=== PATIENT | male | born 1950 | race Caucasian/White ===

== ENCOUNTER 2022-09-26 13:46 | Outpatient (REF) | payer MEDICARE, OTHER, SELFPAY ==
[2022-09-26 14:03] LABS: MANUAL DIFF FLAG NO
[2022-09-26 14:08] LABS: Basophils Absolute Auto 0.1 X10*3/uL (0.0-0.2); Basophils Percent Auto 0.7 % (0-2); Eosinophils Absolute Auto 0.2 X10*3/uL (0.0-0.4); Hematocrit 50.6 % (42.0-52.0); Hemoglobin 17.1 g/dl (14.0-18.0); Imm Gran Abs Auto 0.07 X10*3/uL (0.00-0.03); Imm Gran Pct Auto 0.9 % (0.0-0.4); Lymphocytes Absolute Auto 1.5 X10*3/uL (1.2-4.9); Lymphocytes Percent Auto 18.2 % (20-40); Mean Corpuscular HGB Conc 33.8 g/dl (31.0-36.0); Mean Corpuscular Hemoglobin 29.9 pg (27.0-33.0); Mean Corpuscular Volume 88.5 fL (80.0-98.0); Mean Platelet Volume 8.9 fL (9.4-12.4); Monocytes Absolute Auto 0.6 X10*3/uL (0.1-1.2); Monocytes Percent Auto 7.3 % (2-11); Neutrophils Absolute Auto 5.7 x10*3/uL (2.0-8.3); Neutrophils Percent Auto 70.9 % (45-73); Platelet Count 796 X10*3/uL (160-400); Red Blood Count 5.72 X10*6/uL (4.60-5.80); Red Cell Distribution Width 13.2 % (11.0-16.0); White Blood Count 8.1 X10*3/uL (4.8-10.8)
== END 2022-09-26 13:47 | disposition home or self-care (01) ==
LOC: HO.BBR 13:46
PROVIDERS: PCP Family Medicine; Visit Provider Internal Medicine Hematology
DX: D45 Polycythemia vera (principal)
CPT/HCPCS: 36415; 85014; 85018; 85025; 99195

== ENCOUNTER 2022-10-27 12:46 | Outpatient (REF) | payer MEDICARE, OTHER, SELFPAY | END 2022-10-27 12:47 | disposition home or self-care (01) | LOC: HO.BBR 12:46 | PROVIDERS: Visit Provider Internal Medicine Hematology | DX: D45 Polycythemia vera (principal) | CPT/HCPCS: 85014; 85018; 99195 ==

== ENCOUNTER 2022-11-30 12:45 | Outpatient (REF) | payer MEDICARE, OTHER, SELFPAY | END 2022-11-30 12:46 | disposition home or self-care (01) | LOC: HO.BBR 12:45 | PROVIDERS: PCP Family Medicine; Visit Provider Internal Medicine Hematology | DX: D45 Polycythemia vera (principal) | CPT/HCPCS: 85014; 85018; 99195 ==

== ENCOUNTER 2022-12-29 10:54 | Outpatient (REF) | payer MEDICARE, OTHER, SELFPAY | END 2022-12-29 10:55 | disposition home or self-care (01) | LOC: HO.BBR 10:54 | PROVIDERS: PCP Family Medicine; Visit Provider Internal Medicine Hematology | DX: D45 Polycythemia vera (principal) | CPT/HCPCS: 85014; 85018; 99195 ==

== ENCOUNTER 2023-01-24 12:49 | Outpatient (REF) | payer MEDICARE, OTHER, SELFPAY | END 2023-01-24 12:50 | disposition home or self-care (01) | LOC: HO.BBR 12:49 | PROVIDERS: PCP Family Medicine; Visit Provider Internal Medicine Hematology | DX: D45 Polycythemia vera (principal) | CPT/HCPCS: 85014; 85018; 99195 ==

== ENCOUNTER 2023-02-23 12:21 | Outpatient (REF) | payer MEDICARE, OTHER, SELFPAY | END 2023-02-23 12:22 | disposition home or self-care (01) | LOC: HO.BBR 12:21 | PROVIDERS: PCP Family Medicine; Visit Provider Internal Medicine Hematology | DX: D45 Polycythemia vera (principal) | CPT/HCPCS: 85018; 99195 ==

== ENCOUNTER 2023-03-23 12:50 | Outpatient (REF) | payer MEDICARE, OTHER, SELFPAY | END 2023-03-23 12:51 | disposition home or self-care (01) | LOC: HO.BBR 12:50 | PROVIDERS: PCP Family Medicine; Visit Provider Internal Medicine Hematology | DX: D45 Polycythemia vera (principal) | CPT/HCPCS: 85018; 99195 ==

== ENCOUNTER 2023-04-13 12:01 | Outpatient (REF) | payer MEDICARE, OTHER, SELFPAY | END 2023-04-13 12:02 | disposition home or self-care (01) | LOC: HO.BBR 12:01 | PROVIDERS: PCP Family Medicine; Visit Provider Internal Medicine Hematology | DX: D45 Polycythemia vera (principal) | CPT/HCPCS: 85018; 99195 ==

== ENCOUNTER 2023-09-29 14:01 | Outpatient (REF) | payer MEDICARE, OTHER, SELFPAY | END 2023-09-29 14:02 | disposition home or self-care (01) | LOC: HO.BBR 14:01 | PROVIDERS: PCP Family Medicine; Visit Provider Internal Medicine Hematology | DX: D45 Polycythemia vera (principal) | CPT/HCPCS: 85018; 99195 ==

== ENCOUNTER 2023-12-14 13:52 | Outpatient (REF) | payer MEDICARE, OTHER, SELFPAY | END 2023-12-14 13:53 | disposition home or self-care (01) | LOC: HO.BBR 13:52 | PROVIDERS: PCP Family Medicine; Visit Provider Internal Medicine Hematology | DX: D45 Polycythemia vera (principal) | CPT/HCPCS: 85018 ==

== ENCOUNTER 2023-12-15 13:53 | Outpatient (REF) | payer MEDICARE, OTHER, SELFPAY | END 2023-12-15 13:54 | disposition home or self-care (01) | LOC: HO.BBR 13:53 | PROVIDERS: PCP Family Medicine; Visit Provider Internal Medicine Hematology | DX: D45 Polycythemia vera (principal) | CPT/HCPCS: 85014; 85018; 99195 ==

== ENCOUNTER 2023-12-19 13:09 | Outpatient (REF) | payer MEDICARE, OTHER, SELFPAY | END 2023-12-19 13:10 | disposition home or self-care (01) | LOC: HO.BBR 13:09 | PROVIDERS: PCP Family Medicine; Visit Provider Internal Medicine Hematology | DX: Z13.89 Encounter for screening for other disorder (principal) | CPT/HCPCS: 85014; 85018; 99195 ==

== ENCOUNTER 2023-12-25 12:55 | Outpatient (REF) | payer MEDICARE, OTHER, SELFPAY | END 2023-12-25 12:56 | disposition home or self-care (01) | LOC: HO.BBR 12:55 | PROVIDERS: PCP Family Medicine; Visit Provider Internal Medicine Hematology | DX: D45 Polycythemia vera (principal) | CPT/HCPCS: 85014; 85018; 99195 ==

== ENCOUNTER 2024-02-26 13:50 | Outpatient (REF) | payer MEDICARE, OTHER, SELFPAY | END 2024-02-26 13:51 | disposition home or self-care (01) | LOC: HO.BBR 13:50 | PROVIDERS: PCP Family Medicine; Visit Provider Internal Medicine Hematology | DX: D45 Polycythemia vera (principal) | CPT/HCPCS: 85018; 99195 ==

== ENCOUNTER → 2024-03-27 13:57 | Outpatient (REF) | payer MEDICARE, OTHER, SELFPAY ==
--- OUTSIDE RECORDS SUMMARY | 2024-03-27 15:17 | XMS_ITS | Continuity of Care Document ---
Author Organization [place] - [facility], [facility] Address [address] [place] [address] Care Team Providers Care Manager Alliance Name Role Phone BRADCORTNEYOdalys ANABEL Primary Care Provider [phone] Assessment No assessment recorded. Plan of Treatment Reminders Order Date Submit Date Provider Last Modified By Organization Details Last Modified Time Details Appointments None record ed. Lab None record ed. Referral None record ed. Procedures None record ed. Surgeries None record ed. Imaging None record ed. Medication Orders None record ed. Patient TargetsNo targets recorded. Patient InstructionsNo instructions recorded. Reason for Referral None Reported. Results Created Date Observation Date Name Description Value Unit Range Abnormal Flag Note LastModifiedBy Organization Detail LastModifiedTime 03/01/19 25 audio gram No observ ation record ed. BARCODE Not Available 2024 13:47:09 Result Notes None recorded. Problems Name Problem SNOMED Code Status Onset Date Resolution Date Notes Provider Name and Address Organization Details Recorded Time Impacted cerumen in left ear 33660337173 12612 Active 2019 Impacted cerumen, left ear; Note: Date Diagnosed : 03/26/2019 1:38 PM (H61.22) Not Available [facility] 4 02:56:46 Sensorine ural hearing loss 47561203 Active 2022 Sensorine ural hearing loss, unilatera l, left ear, with unrestric tho hearing on the contralat eral side; Note: Date Diagnosed : 03/07/2022 11:45 AM (H90.42) Not Available [facility] 02:56:46 Itching of skin 606144263 Active 2019 Other pruritus; Note: Date Diagnosed : 09/23/2019 4:59 PM (L29.8) Not Available [facility] 4 02:56:45 Bilateral tinnitus 58592053905 02 Active 2020 Tinnitus, bilateral ; Note: Date Diagnosed : 06/24/2020 4:16 PM (H93.13) Not Available [facility] 4 02:56:47 Thyroidit is 01205728 Active 2019 Thyroidit is, unspecifi ed; Note: Date Diagnosed : 03/26/2019 1:37 PM (E06.9) Not Available [facility] 4 02:56:47 Abrasion of skin of left ear 39815161819 079588 Active 2020 Abrasion of left ear, initial encounter ; Note: Date Diagnosed : 06/29/2020 4:02 PM (S00.412A ) Not Available [facility] 4 02:56:44 Benign paroxysma l positiona l vertigo 619533849 Active 2020 Benign paroxysma l vertigo, right ear; Note: Date Diagnosed : 06/29/2020 4:03 PM (H81.11) Not Available [facility] 4 02:56:45 Tinnitus of left ear 16959303575 06 Active 2019 Tinnitus, left ear; Note: Date Diagnosed : 09/23/2019 4:18 PM (H93.12) Not Available [facility] 4 02:56:44 Sensorine ural hearing loss of bilateral ears 082438128 Active 2024 NEHA MCDANIEL MD [address] [place] [address], [place], [phone] , [facility] 5 11:48:51 Polycythe noé vera (clinical ) 575165541 Active 2024 NEHA MCDANIEL MD [address] [place] [address], [place], [phone] , [facility] [place] 5 11:49:28 Problem Notes None recorded. Procedures Surgical History Date Name Laterality Status Provider Name and Address Organization Details Recorded Time 03/01/2024 Air & Speech Audio with Tymps (85535, 57084 & 15142) completed DENNIS MOLINA, AUD [address] [facility],[place] [address], [place], [address], [facility] 03/01/2024 11:13:43 Imaging Results None recorded. Procedure Notes None recorded. Medical Equipment None Reported. Medications Name Sig Start Date Stop Date Status Note LastModified by Organization Details LastModified Time hydroxyur ea 500 mg capsule TAKE 1 CAPSULE BY MOUTH EVERY OTHER DAY active Not Available Not Available No t Available prednison e 10 mg tablet by mouth 03/06 completed Medicati on ID: [id number] P donato booker By Name: Ja Gaines nd Name: predniso ne Send Method: E-Prescr ibed Sub s Allowed: subs OK Speci al Instruct ion: Take 6 tabs PO QD X 9 days, then 5 tabs PO QD day 10, 4 tabs day 11, 3 tabs day 12, 2 tabs day 13 and 1 tab day 14 Medic ationGen ericName : predniso ne Not Available Not Available Not Available ketoconaz ole 2 % shampoo APPLY TO SCALP SHAMPOO SEVERAL TIMES WEEKLY. active Not Available Not Available No t Available metoprolo l succinate ER 50 mg tablet,ex tended release 24 hr 03/06 completed Medicati on ID: [id number] B rand Name: metoprol ol succinat e Send Method: E-Prescr ibed Sub s Allowed: subs OK Medic ationGen ericName : metoprol ol succinat e Not Available Not Available Not Available amlodipin e 5 mg tablet TAKE 1 TABLET BY MOUTH EVERY DAY active Not Available Not Available No t Available aspirin 81 mg tablet,de layed release active Medicati on ID: [id number] B rand Name: aspirin Send Method: E-Prescr ibed Sub s Allowed: subs OK Medic ationGen ericName : aspirin Not Available Not Available Not Available ofloxacin 0.3 % ear drops Instill 4 drop twice a day 2020 active Medicati on ID: [id number] D uration Value: 10 Prescri bed By Name: Myesha Paul, PA-C Bra nd Name: ofloxaci n Send Method: E-Prescr ibed Sub s Allowed: subs OK Speci al Instruct ion: LEFT ear Medi cationGe nericNam e: ofloxaci n Not Available Not Available Not Available temazepam 15 mg capsule 1 CAPSULE BY MOUTH DAILY AT BEDTIME NEEDED FOR SLEEP active Not Available Not Available No t Available losartan 25 mg tablet 03/06 completed Medicati on ID: [id number] B rand Name: losartan Send Method: E-Prescr ibed Sub s Allowed: subs OK Medic ationGen ericName : losartan Not Available Not Available Not Available Drysol Dab-O-Mat ic 20 % topical solution APPLY DRYSOL TO AFFECT AREA ONCE A WEEK NEEDED active Not Available Not Available No t Available fluocinol one 0.01 % topical solution 3 as directed to skin 2019 active Medicati on ID: [id number] D uration Value: 7 Prescri bed By Name: Ja Gaines nd Name: fluolexis rutledge Sen d Method: E-Prescr ibed Sub s Allowed: subs OK Speci al Instruct ion: 3 drops BID for 7 days Med icationG enericNa me: fluocino lone Not Available Not Available Not Available Pepcid 20 mg tablet Take 1 tablet by mouth twice a day 03/06 completed Medicati on ID: [id number] B rand Name: Pepcid S end Method: E-Prescr ibed Sub s Allowed: subs OK Medic ationGen ericName : Pepcid Not Available Not Available Not Available rosuvasta tin 5 mg tablet TAKE 1 TABLET BY MOUTH EVERY DAY active Not Available Not Available No t Available Paxlovid 300 mg (150 mg x 2)-100 mg tablets in a dose pack TAKE 3 TABLETS BY MOUTH TWICE A DAY active Not Available Not Available No t Available Vitals None Recorded Social History None recorded. Functional Status None recorded. Mental Status None recorded. Family History Nothing Reported. Medical History No medical history recorded. Past Encounters Encounter ID Performer Location Encounter Start Date Encounter Closed Date Diagnosis/Indication Diagnosis SNOMED-CT Code Diagnosis ICD10 Code Diagnosis Note [id number] NEHA MCDANIEL MD [facility] [address] [place] [address] 03/01/2024 10:57:39 03/01/2024 11:51:31 Sensorineural hearing loss of bilateral ears 548720513 H90.3 Bilateral tinnitus 31938 66351 102 H93.13 Polycythem ia vera (clinical) 386736828 D45 [id number] LYNDA BARGER [facility] [address] [place] [address] 03/01/2024 11:13:12 03/04/2024 07:40:30 Bilateral tinnitus 6686699748 102 H93.13 Right Ear:Normal hearing through 6K Hz sloping to a mild SNHL with excellent speech discrimina tion.Type A tympanogra m.Left Ear:Normal hearing through 6K Hz sloping to a mild SNHL with excellent speech discrimina tion.Type A tympanogra m. Sensorineu ral hearing loss 48581793 H90.42 Health Concerns Section Related Observation LastModified by Organization Detai ls LastModified Time None Recorded Concern Status LastModified by Organization Details LastModified Time None Recorded Payers Encounter Date Sequence Insurance Name Policy Number Policy Cote Covered Member ID Cote Member ID Guarantor Name 03/01/2024 2 [facility] [id number] Dustin Rogers [id number] Dustin Rogers 03/01/2024 1 MEDICARE [place]: [facility] Dustin Rogers [id number] Dustin Rogers Notes Date Note Type Note Provider Name and Address Organization Details Recorded Time 03/01/2024 text/html Overall feels things are stableDealing with PCV--fatigueGetting phlebotomy every month or so NEHA ZELAYA MD [address] [place] [address], [phone], [facility] 03/01/2024 11:49:47
--- OUTSIDE RECORDS SUMMARY | 2024-03-27 15:17 | XMS_ITS | Continuity of Care Document ---
Author Organization [facility] Address [address] [facility], [address] [place] [address]- Care Team Providers Care Therapy Administrative Assistant Name Role Phone Bakari Crawford MD Primary Care Physician Encounter 03/05/24 - 03/12/24 [facility] [address] [facility], [address] [place] [address]- Attending Physician: Bakari Crawford MD Admitting Physician: Bakari Crawford MD Referring Physician: Bakari Crawford MD Encounter Type: OutPatient One Time Allergies, Adverse Reactions, Alerts No Known Allergies Immunizations Given and Recorded Vaccine Date Status Refusal Reason SARS-CoV-2 (COVID-19) mRNA BNT-162b2 vac 05/20/20 Recorded Problem List Condition Confirmation Course Effective Dates Status Health Status Informant GERD (gastroesophageal reflux disease) Confirmed Active Gynecomastia Confirmed Active Headache Confirmed Active Hyperhidrosis Confirmed Active Hyperlipidemia Confirmed Active Hypertension Confirmed Active Hypertriglyceridemia Confirmed Active Insomnia Confirmed Active MDP (myeloproliferative disorder) Confirmed Active Polycythemia vera Confirmed Active Varicose vein of leg Confirmed Active Results Radiology Reports * Exam Date Time Procedure Performing Provider Status 03/05/24 9:55 AM Abdomen AP Santos , Keila; Auth (Verif ied) Notes: (Abdomen AP) Reason For Exam: Constipation RESULT: XR Abdomen AP XR Abdomen AP 1 view supine, 2 images INDICATION/CLINICAL QUESTION: Reason: Constipation COMPARISON: None FINDINGS: Normal bowel gas pattern. No evidence of obstruction. There is mild to moderate amount of stool in region of the right and transverse colon, only small amounts in the left colon, mainly in the rectum. No organomegaly, masses or calcifications. No acute bone findings. IMPRESSION: No acute findings. Mild to moderate stool retention, mostly in the right and transverse colon. WSN: [id number] Ordering Physician: Bakari Crawford Dictated By: Sonny Oconnor MD Dictated Date/Time: 03/05/24 11:58 a Reviewed By: Sonny Oconnor MD Signed By: Sonny Oconnor MD Signed Date/Time: 03/05/24 11:58 am Transcribed By: JB Transcribed Date/Time: 03/05/24 11:56 am Social History Social History Type Response Smoking Status Never smoker entered on: 01/19/16 Sex Sex Representation Male (finding) Patient Care team information Care Team Personnel Name: Bakari Crawford MD Position: S Physician - Primary Care Member Role: PCP Address: [address] [place] [address] Telecom: Care Team Related Persons Name: TRENT DICKSON Name: MARYANA JOHNSON Insurance Providers Guarantor name: JOHN DICKSON Health Plan Information #: 2 Payer: [facility] Member Number: [id number] Policy Number: NA Group Number: [id number] Health Plan Information #: 1 Payer: MEDICARE PART B OUTPT Member Number: [id number] Policy Number: NA Group Number: NA
--- OUTSIDE RECORDS SUMMARY | 2024-03-27 15:17 | XMS_ITS | Continuity of Care Document ---
Author Organization [facility] Address [address] [place] [address]- Care Team Providers Care Collection Card Clerk Name Role Phone Bakari Crawford MD [id number] [address] [place] [address]- Encounter Diagnosis Right inguinal pain(Discharge Diagnosis) - 03/05/24 Constipation(Discharge Diagnosis) - 03/05/24 MDP (myeloproliferative disorder)(Discharge Diagnosis) - 03/05/24 Polycythemia vera(Discharge Diagnosis) - 03/05/24 Insomnia(Discharge Diagnosis) - 03/05/24 Attending Physician: Bakari Crawford MD Encounter Type: Office Visit Allergies, Adverse Reactions, Alerts No Known Allergies [...] Active Varicose vein of leg Confirmed Active Diagnosis Diagnosis Type Effective Dates Health Status Clinical Service Informant Right inguinal pain Discharge Diagnosis 03/05/24 Constipation Discharge Diagnosis 03/05/24 MDP (myeloproliferative disorder) Discharge Diagnosis 03/05/24 Polycythemia vera Discharge Diagnosis 03/05/24 Insomnia Discharge Diagnosis 03/05/24 Non-Specified Vital Signs Most recent to oldest [Reference Range]: 1 2 3 Height 172.5 cm (03/05/24 9:27 AM) 172.5 cm (03/05/24 9:26 AM) 172.5 cm (03/05/24 9:22 AM) Weight 78.9 kg (03/05/24 9:22 AM) Oxygen Saturation [94-100 %] 99 % (03/05/24 9:22 AM) Pulse Rate [55-90 bpm] 102 bpm *H* (03/05/24 9:22 AM) Body Mass Index [18.5-24.99 kg/m2] 26.52 kg/m2 *H* (03/05/24 9:22 AM) Blood Pressure [90-138/55-84 mm Hg] 156/74mm Hg *H* (03/05/24 9:27 AM) 157/78mm Hg *H* (03/05/24 9:26 AM) 161/82mm Hg *H* (03/05/24 9:22 AM) Mode of Delivery (Oxygen) Room air (03/05/24 9:22 AM) Blood pressure sites Arm, left (03/05/24 9:27 AM) Arm, left (03/05/24 9:26 AM) Arm, left (03/05/24 9:22 AM) Weight Obtained Via Standing scale (03/05/24 9:22 AM) Social History Social History Type Response Smoking Status Never smoker entered on: 01/19/16 Sex Sex Representation Male (finding) Note * Tanja Cantu: PERFORM Event Display: Patient Education/Instruction Authored Date: Ambulatory Adult Visit Summary [address] [address] Name: JOHN DICKSON : 1950?? Visit: 03/05/2024 09:15?? Ambulatory Visit Instructions ?? Your Care Team Primary Care Provider Bakari Crawford MD? This Visit Provider Bakari Crawford MD Your Diagnosis Right inguinal pain Constipation MDP (myeloproliferative disorder) Polycythemia vera Insomnia Vitals Signs Pulse Rate:??102 bpm??High Height: 172.5 cm Systolic Blood Pressure:??156 mm Hg??High Weight: 78.9 kg Diastolic Blood Pressure: 74 mm Hg Body Mass Index:??26.52 kg/m2??High Oxygen Saturation: 99 % Body surface area: 1.94 What to do next Instructions From Your Provider xray ordered Future Orders CBC - Routine, Once, 09/20/23 3:00:00 EDT every 2 week(s) for 6 months, Single or Recurring Future Order, [facility], Blood?? Medications The list below reflects the information in our records and provided by you today along with any changes made during this visit. Please continue your medications until treatment is completed or stopped by your provider. If this is different from the information you have or there are other questions,please contact the prescribing provider. What How Much When Why Instructions New Temazepam (temazepam 15 mg oral capsule) 1 capsule Oral Daily at Bedtime as needed for for sleep Insomnia Pickup at [facility]/pharmacy #[id number] Unchanged Aluminum Chloride Hexahydrate Topical (Drysol 20% topical solution) See instructions Hyperhidrosis apply drysol to affect area once a week as needed ?? Unchanged Amlodipine (amLODIPine 5 mg oral tablet) 1 tab(s) Oral Daily Unchanged Aspirin (aspirin 81 mg oral delayed release tablet) 1 tab(s) Oral Daily Unchanged Cholecalciferol (Vitamin D3 2000 intl units oral tablet) 1 tab(s) Oral Daily Unchanged Hydroxyurea (hydroxyurea 500 mg oral capsule) 45 each, 0 Refill(s), TAKE 1 CAPSULE BY MOUTH EVERY OTHER DAY ?? Unchanged [place]-3 Polyunsaturated Fatty Acids (Fish Oil) Oral Unchanged Rosuvastatin (rosuvastatin 5 mg oral tablet) 1 tab(s) Oral Daily Hyperlipidemia Hypertriglyceridemia Pharmacy Information [facility]/pharmacy #[id number]: [address], [place] [id number] [phone] Medications and Immunizations Administered Medications Given During Visit No medications given during this visit.?? Allergies (NKA means No Known Allergies) NKA Common Emergency Awareness Tips IS IT A STROKE? Act FAST and Check for these signs: FACE Does the face look uneven? ARM Does one arm drift down? SPEECH Does their speech sound strange? TIME Call at any sign of stroke ?? Heart Attack Signs Chest discomfort: Most heart attacks involve discomfort in the center of the chest and lasts more than a few minutes, or goes away and comes back. It can feel like uncomfortable pressure, squeezing, fullness or pain. Discomfort in upper body: Symptoms can include pain or discomfort in one or both arms, back, neck, jaw or stomach. Shortness of breath: With or without discomfort. Other signs: Breaking out in a cold sweat, nausea, or lightheaded. Remember, MINUTES DO MATTER. If you experience any of these heart attack warning signs, call to get immediate medical attention! ?? Smoking can increase your chances of developing chronic health problems and can cause harmful effects to other family members in your house. If you smoke, you are strongly encouraged to quit. Please call [facility] [employer] [facility] at [phone] or [phone] ([phone]) or log in to [email or web address] for referrals to smoking cessation programs. ?? The National Suicide Prevention Hotline is available 12/09 if you or someone you know needs to find a reason to keep living. By calling 7-477-188-[employer] (4443) you'll be connected to a skilled, trained counselor at a crisis center in your area. [facility] [employer] Portal You can view and manage your care through the patient portal or by using a health care ti of your choosing. [employer] is a website that allows you to securely view your medical information including your hospital discharge summary, office visit summaries, medications and follow-up visits. You can also request appointments, renew medications, and request access to your medical information using a health care ti of your choosing, or just ask a question. You can enroll at [email or web address] or register during your next office visit. [facility], in keeping with [facility] guidance, no longer requires face masks for staff, patientsor visitors in most situations. Similiar to time spent indoors at other locations, there is the chance that you were exposed to repiratory viruses during your time with us (such as flu or COVID-19). If you develop symptoms concerning for a viral respiratory infection, please seek testing (and treatment if indicated) from your medical provider or home test kit. ?? Disclaimer: The information provided is of a general nature and is intended to be used in conjunction with the recommendations and advice of your health care practitioner. Every effort has been made to ensure that the information provided is accurate and complete at the time it is provided to you however, as your needs change, or, as new information becomes available, different or additional instructions may be required. ?? If you have questions, please consult with your primary care provider or pharmacist, as appropriate. This information is not intended to serve as substitution for assessment and evaluation by a qualified health care provider. If you do not have a primary care provider, you may find a [facility] provider by calling [facility] [employer] [facility] at [phone]. Patient Care team information Care Team Personnel Name: Bakari Crawford MD Position: [facility] Physician - Primary Care Member Role: PCP Address: [address] [place] [address] Telecom: Care Team Related Persons Name: TRENT DICKSON Name: MARYANA JOHNSON Insurance Providers Guarantor name: JOHN ERIKAOdalys Health Plan Information #: 1 Payer: MEDICARE PART B OUTPT Member Number: [id number] Policy Number: NA Group Number: NA Health Plan Information #: 2 Payer: [facility] Member Number: [id number] Policy Number: NA Group Number: [id number]
--- OUTSIDE RECORDS SUMMARY | 2024-03-27 15:17 | XMS_ITS | Continuity of Care Document ---
Author Organization [place] - [facility], [facility] Address [address] [place] [address] Care Team Providers Care Trustee Of Estate Name Role Phone BRADCORTNEYOdalys ANABEL Primary Care Provider Assessment Encounter Date Assessment Date Assessment LastModified by Organization Details LastModified Time 03/01/2024 03/01/2024 Overall doing well. Continue to monitor hearing [email or web address] Not available 03/01/2024 11:49:18 Plan of Treatment Reminders Order Date Submit [...] Recorded Time Impacted cerumen in left ear [id number] 46302 Active 2019 Impacted cerumen, left ear; Note: Date Diagnosed : 03/26/2019 1:38 PM (H61.22) Not Available [facility] 02:56:46 Sensorine ural hearing loss 95764735 Active 2022 Sensorine ural hearing loss, unilatera l, left ear, with unrestric tho hearing on the contralat eral side; Note: Date Diagnosed : 03/07/2022 11:45 AM (H90.42) Not Available [facility] 4 02:56:46 Itching of skin 479390842 Active 2019 Other pruritus; Note: Date Diagnosed : 09/23/2019 4:59 PM (L29.8) Not Available [facility] 4 02:56:45 Bilateral tinnitus 74494659492 02 Active 2020 Tinnitus, bilateral ; Note: Date Diagnosed : 06/24/2020 4:16 PM (H93.13) Not Available [facility] 4 02:56:47 Thyroidit is 55133593 Active 2019 Thyroidit is, unspecifi ed; Note: Date Diagnosed : 03/26/2019 1:37 PM (E06.9) Not Available [facility] 4 02:56:47 Abrasion of skin of left ear 95719621251 807878 Active 2020 Abrasion of left ear, initial encounter ; Note: Date Diagnosed : 06/29/2020 4:02 PM (S00.412A ) Not Available [facility] 4 02:56:44 Benign paroxysma l positiona l vertigo 569067352 Active 2020 Benign paroxysma l vertigo, right ear; Note: Date Diagnosed : 06/29/2020 4:03 PM (H81.11) Not Available [facility] 4 02:56:45 Tinnitus of left ear 91157599624 06 Active 2019 Tinnitus, left ear; Note: Date Diagnosed : 09/23/2019 4:18 PM (H93.12) Not Available [facility] 4 02:56:44 Sensorine ural hearing loss of bilateral ears 269985131 Active 2024 NEHA MCDANIEL MD [address] [place] [address],[place] [address] [place], [address] , [place] - [facility] 5 11:48:51 Polycythe noé vera (clinical ) 792164902 Active 2024 NEHA MCDANIEL MD [address] [place] [address],[place] [address], [place], [address] , [facility] - [facility] 11:49:28 Problem Notes None recorded. Procedures Surgical History Date Name Laterality Status Provider Name and Address Organization Details Recorded Time 03/01/2024 Air & Speech Audio with Tymps (76103, 96787 & 80821) completed DENNIS MOLINA, AUD [address] [facility], [place], [address], [facility] 03/01/2024 11:13:43 Imaging Results None recorded. Procedure Notes None recorded. Medical Equipment None Reported. Medications Name Sig Start Date Stop Date Status Note LastModified by Organization Details LastModified Time hydroxyur ea 500 mg capsule TAKE 1 CAPSULE BY MOUTH EVERY OTHER DAY active Not Available Not Available No t Available prednison e 10 mg tablet by mouth 03/06 completed Medicati on ID: [id number] Britta booker By Name: Ja Gaines nd Name: [...] 24 hr 03/06 completed Medicati on ID: [id number] B rand Name: metoprol ol succinat e Send Method: E-Prescr ibed Sub s Allowed: subs OK Medic ationGen ericName : metoprol ol succinat e Not Available Not Available Not Available amlodipin e 5 mg tablet TAKE 1 TABLET BY MOUTH EVERY DAY active Not Available Not Available No t Available aspirin 81 mg tablet,de layed release active Medicati on ID: [id number] B rand Name: aspirin Send Method: E-Prescr ibed Sub s Allowed: subs OK Medic ationGen ericName : aspirin Not Available Not Available Not Available ofloxacin 0.3 % ear drops Instill 4 drop twice a day 2020 active Medicati on ID: [id number] D uration Value: 10 Prescri bed By Name: BOSTON Grant nd Name: ofloxaci n Send Method: E-Prescr ibed Sub s Allowed: subs OK Speci al Instruct ion: LEFT ear Medi cationGe nericNam e: ofloxaci n Not Available Not Available Not Available temazepam 15 mg capsule 1 CAPSULE BY MOUTH DAILY AT BEDTIME NEEDED FOR SLEEP active Not Available Not Available No t Available losartan 25 mg tablet 03/06 completed Medicati on ID: [id number] B rand Name: losartan Send Method: E-Prescr [...] to skin 2019 active Medicati on ID: [id number] D uration Value: 7 Prescri bed By Name: Ja Gaines nd Name: fluocino lone Sen d Method: E-Prescr ibed Sub s Allowed: subs OK Speci al Instruct ion: 3 drops BID for 7 days Med icationG enericNa me: fluocino lone Not Available Not Available Not Available Pepcid 20 mg tablet Take 1 tablet by mouth twice a day 03/06 completed Medicati on ID: [id number] B rand Name: Pepcid S end Method: [...] SNOMED-CT Code Diagnosis ICD10 Code Diagnosis Note [id number] NEHA MCDANIEL MD [facility] of [address] [address] 03/01/2024 10:57:39 03/01/2024 11:51:31 Sensorineural hearing loss of bilateral ears 424107626 H90.3 Bilateral tinnitus 29095 41585 102 H93.13 Polycythem ia vera (clinical) 885199777 D45 [id number] LYNDA BARGER [facility] [address] [place] [address] 03/01/2024 11:13:12 03/04/2024 07:40:30 Bilateral tinnitus 5457192652 102 H93.13 Right Ear:Normal hearing through 6K Hz sloping to a mild SNHL with excellent speech discrimina tion.Type A tympanogra m.Left Ear:Normal hearing through 6K Hz sloping to a mild SNHL with excellent speech discrimina tion.Type A tympanogra m. Sensorineu ral hearing loss 35592286 H90.42 Health Concerns Section Related Observation LastModified by Organization Detai ls LastModified Time None Recorded Concern Status LastModified by Organization Details LastModified Time None Recorded Payers Encounter Date Sequence Insurance Name Policy Number Policy Cote Covered Member ID Cote Member ID Guarantor Name 03/01/2024 2 [facility] [id number] Dustin Rogers [id number] Dustin Rogers 03/01/2024 1 [place] [facility] Dustin Rogers [id number] 5 Dustin Rogers Notes Date Note Type Note Provider Name and Address Organization Details Recorded Time 03/01/2024 text/html Overall feels things are stableDealing with PCV--fatigueGetting phlebotomy every month or so NEHA ZELAYA MD [address] [place] [address], [place], [address], [place] - [facility] 03/01/2024 11:49:47
--- OUTSIDE RECORDS SUMMARY | 2024-03-27 15:18 | XMS_ITS | Data Portability ---
Author Organization [place] - [facility], Allergy Address [address] [address] Care Team Providers Care Ops Analyst Name Role Phone ANABEL BAÑUELOS Primary Care Provider [phone] Assessment Encounter Date Assessment Date Assessment LastModified [...] Recorded Time Impacted cerumen in left ear 86340206100 92851 Active 2019 Impacted cerumen, left ear; Note: Date Diagnosed : 03/26/2019 1:38 PM (H61.22) Not Available [facility] 02:56:46 Sensorine ural hearing loss 90907093 Active 2022 Sensorine ural hearing loss, unilatera l, left ear, with unrestric tho hearing on the contralat eral side; Note: Date Diagnosed : 03/07/2022 11:45 AM (H90.42) Not Available [facility] 4 02:56:46 Itching of skin 823561245 Active 2019 Other pruritus; Note: Date Diagnosed : 09/23/2019 4:59 PM (L29.8) Not Available [facility] 4 02:56:45 Bilateral tinnitus 05084301054 02 Active 2020 Tinnitus, bilateral ; Note: Date Diagnosed : 06/24/2020 4:16 PM (H93.13) Not Available [facility] 4 02:56:47 Thyroidit is 75789401 Active 2019 Thyroidit is, unspecifi ed; Note: Date Diagnosed : 03/26/2019 1:37 PM (E06.9) Not Available [facility] 4 02:56:47 Abrasion of skin of left ear 96612883181 425129 Active 2020 Abrasion of left ear, initial encounter ; Note: Date Diagnosed : 06/29/2020 4:02 PM (S00.412A ) Not Available [facility] 4 02:56:44 Benign paroxysma l positiona l vertigo 382944966 Active 2020 Benign paroxysma l vertigo, right ear; Note: Date Diagnosed : 06/29/2020 4:03 PM (H81.11) Not Available [facility] 4 02:56:45 Tinnitus of left ear 42584576447 06 Active 2019 Tinnitus, left ear; Note: Date Diagnosed : 09/23/2019 4:18 PM (H93.12) Not Available [facility] 4 02:56:44 Sensorine ural hearing loss of bilateral ears 618806281 Active 2024 NEHA MCDANIEL MD 100 [facility],[place] [address], [place], [address] , [place] - [facility] 5 11:48:51 Polycythe noé vera (clinical ) 530294337 Active 2024 NEHA MCDANIEL MD [address] [place] [address],[place] [address], [place], [address] , [place] - [facility] 11:49:28 Problem Notes None recorded. Procedures Surgical History Date Name Laterality Status Provider Name and Address Organization Details Recorded Time 03/01/2024 Air & Speech Audio with Tymps (17988, 35475 & 63649) completed DENNIS MOLINA, AUD 100 [facility] 100, [place], [address], [place] - [facility] 03/01/2024 11:13:43 Imaging Results Imaging Date Name Status LastModified by Organiz ation Details LastModified Time 03/01/2024 audiogram completed BARCODE Information no t available 03/01/2024 13:47:09 Procedure Notes None recorded. Medical Equipment None Reported. Medications Name Sig Start Date Stop Date Status Note LastModified by Organization Details LastModified Time hydroxyur ea 500 mg capsule TAKE 1 CAPSULE BY MOUTH EVERY OTHER DAY active Not Available Not Available No t Available prednison e 10 mg tablet by mouth 03/06 completed Medicati on ID: [id number] P donato d By Name: Ja Gaines nd Name: predniso [...] 24 hr 03/06 completed Medicati on ID: [id number] B rand Name: metoprol ol succinat e Send Method: E-Prescr ibed Sub s Allowed: subs OK Medic ationGen ericName : metoprol ol succinat e Not Available Not Available Not Available amlodipin e 5 mg tablet TAKE 1 TABLET BY MOUTH EVERY DAY active Not Available Not Available No t Available aspirin 81 mg tablet,de layed release active Medicati on ID: [id number] B rand Name: aspirin Send Method: E-Prescr ibed Sub s Allowed: subs OK Medic ationGen ericName : aspirin Not Available Not Available Not Available ofloxacin 0.3 % ear drops Instill 4 drop twice a day 2020 active Medicati on ID: [id number] D uration Value: 10 Prescri bed By [...] mg tablet 03/06 completed Medicati on ID: [id number] B rand Name: losartan Send Method: E-Prescr [...] to skin 2019 active Medicati on ID: [id number] D uration Value: 7 Prescri bed By Name: Ja Gaines nd Name: carlita rutledge Rylan d Method: E-Prescr ibed Sub s Allowed: subs OK Speci al Instruct ion: 3 drops BID for 7 days Med icationG enericNa me: fluosandeepo alconcosme Not Available Not Available Not Available Pepcid 20 mg tablet Take 1 tablet by mouth twice a day 03/06 completed Medicati on ID: [id number] B rand Name: Pepcid S end Method: [...] SNOMED-CT Code Diagnosis ICD10 Code Diagnosis Note [id number] NEHA MCDANIEL MD [facility] of [address] [address] 03/01/2024 10:57:39 03/01/2024 11:51:31 Sensorineural hearing loss of bilateral ears 393728154 H90.3 Bilateral tinnitus 40472 61812 102 H93.13 Polycythem ia vera (clinical) 084979487 D45 [id number] LYNDA BARGER [facility] of [address] [address] 03/01/2024 11:13:12 03/04/2024 07:40:30 Bilateral tinnitus 3211911806 102 H93.13 Right Ear:Normal hearing through 6K Hz sloping to a mild SNHL with excellent speech discrimina tion.Type A tympanogra m.Left Ear:Normal hearing through 6K Hz sloping to a mild SNHL with excellent speech discrimina tion.Type A tympanogra m. Sensorineu ral hearing loss 47763717 H90.42 Health Concerns Section Related Observation LastModified by Organization Detai ls LastModified Time None Recorded Concern Status LastModified by Organization Details LastModified Time None Recorded Advance Directives Directive None Recorded Payers Encounter Date Sequence Insurance Name Policy Number Policy Cote Covered Member ID Cote Member ID Guarantor Name 03/01/2024 2 [facility] [id number] Dustin Rogers [id number] Dustin Rogers 03/01/2024 1 [place] [employer] Dustin Rogers [id number] 5 Dustin Rogers 03/01/2024 2 [facility] (O) [id number] 8 Dustin Saleema [id number] Dustin Rogers 03/01/2024 1 [place] [employer] Dustin Rogers [id number] 5 Dustin Rogers Notes Date Note Type Note Provider Name and Address Organization Details Recorded Time 03/01/2024 text/html Overall feels things are stableDealing with PCV--fatigueGetting phlebotomy every month or so NEHA ZELAYA MD [address] [place] [address], [place], [address], [facility] - [facility] 03/01/2024 11:49:47
--- OUTSIDE RECORDS SUMMARY | 2024-03-27 15:18 | XMS_ITS | Clinical Summary ---
Author Organization [facility] ity Address [address] [place] [address] Care Team Providers Care Head Banquet Waitress Name Role Phone Bakari Crawford MD Primary Care Provider [phone] Social History Tobacco Use Types Packs/Day Years Used Date Smoking Tobacco: Never Assessed Sex and Gender Information Value Date Recorded Sex Assigned at Not on file Gender Identity Not on file Sexual Orientation Not on file Job Start Date Occupation Industry Not on file Not on file Not on file Plan of Treatment Upcoming Encounters Date Type Department Care Team (Late st Contact Info) Description 04/10/2024 1:40 PM EST Office Visit Gastroenterology - [address] [place] [address] Kim Dougherty, NAMRATA [address] [place], [place] [id number] Health Maintenance Due Date Last Done Comments DTaP,Tdap,and Td Vaccines (1 - Tdap) 1969 Zoster Vaccines (1 of 2) 2000 Pneumococcal Vaccine: 65+ Ye ars (1 of 1 - PCV) 11/30/2015 COVID-19 Vaccine ( - 2023-2 5 season) 2023 Influenza Vaccine (#1) 2023 Abdominal Aortic Aneurysm (A AA) Screen 03/21/2024 Cholesterol Screening (Lipid Panel) 03/21/2024 Colorectal Cancer Screening: Colonoscopy 03/21/2024 Depression Screening 03/21/2024 Falls Risk Assessment 03/21/2024 Hepatitis C Screening 03/21/2024 Medicare Annual Wellness Visit 03/21/2024 Social Influencers of Health Screening 03/21/2024 RSV Immunization Patients 60 + Years Old (1 - 1-dose 75+ series) 2025 HIB Vaccines Aged Out No longer eligi ble based on patient's age to complete this topic HPV Vaccines Aged Out No longer eligi ble based on patient's age to complete this topic Hepatitis A Vaccines Aged Out No long er eligible based on patient's age to complete this topic Hepatitis B Vaccines Aged Out No long er eligible based on patient's age to complete this topic IPV Vaccines Aged Out No longer eligi ble based on patient's age to complete this topic MMR Vaccines Aged Out No longer eligi ble based on patient's age to complete this topic Meningococcal ACWY Vaccine Aged Out N o longer eligible based on patient's age to complete this topic RSV Immunization Patients Un kelsey 20 months Aged Out No longer eligible b ased on patient's age to complete this topic Varicella Vaccines Aged Out No longer eligible based on patient's age to complete this topic Care Teams Head Banquet Waitress Relationship Specialty Start Date End Date Bakari Crawford MD [facility] [address] [place] [address] PCP - General Family Medicine 03/21/24
== END | disposition home or self-care (01) ==
LOC: HO.BBR 13:57
PROVIDERS: PCP Family Medicine; Visit Provider Internal Medicine Hematology
DX: D45 Polycythemia vera (principal)
CPT/HCPCS: 85014; 85018; 99195

== ENCOUNTER 2024-06-05 13:58 | Outpatient (REF) | payer MEDICARE, OTHER, SELFPAY ==
--- OUTSIDE RECORDS SUMMARY | 2024-06-05 16:41 | XMS_ITS | Data Portability ---
Author Organization [place] - [facility], Allergy Address [address] [address] Care Team Providers Care Php Software Engineer Name Role Phone ANABEL BAÑUELOS Primary Care Provider Assessment Encounter Date Assessment [...] Recorded Time Impacted cerumen in left ear [id number] 01387 Active 2019 Impacted cerumen, left ear; Note: Date Diagnosed : 03/26/2019 1:38 PM (H61.22) Not Available [facility] 02:56:46 Sensorine ural hearing loss 85111075 Active 2022 Sensorine ural hearing loss, unilatera l, left ear, with unrestric tho hearing on the contralat eral side; Note: Date Diagnosed : 03/07/2022 11:45 AM (H90.42) Not Available [facility] 4 02:56:46 Itching of skin 150765230 Active 2019 Other pruritus; Note: Date Diagnosed : 09/23/2019 4:59 PM (L29.8) Not Available [facility] 4 02:56:45 Bilateral tinnitus 25528989902 02 Active 2020 Tinnitus, bilateral ; Note: Date Diagnosed : 06/24/2020 4:16 PM (H93.13) Not Available [facility] 4 02:56:47 Thyroidit is 07182104 Active 2019 Thyroidit is, unspecifi ed; Note: Date Diagnosed : 03/26/2019 1:37 PM (E06.9) Not Available [facility] 4 02:56:47 Abrasion of skin of left ear 33064190039 447745 Active 2020 Abrasion of left ear, initial encounter ; Note: Date Diagnosed : 06/29/2020 4:02 PM (S00.412A ) Not Available [facility] 4 02:56:44 Benign paroxysma l positiona l vertigo 233053734 Active 2020 Benign paroxysma l vertigo, right ear; Note: Date Diagnosed : 06/29/2020 4:03 PM (H81.11) Not Available [facility] 4 02:56:45 Tinnitus of left ear 99429498034 06 Active 2019 Tinnitus, left ear; Note: Date Diagnosed : 09/23/2019 4:18 PM (H93.12) Not Available [facility] 4 02:56:44 Sensorine ural hearing loss of bilateral ears 537160877 Active 2024 NEHA MCDANIEL MD 100 [facility],[place] [address], [place], [address] , [place] - [facility] 5 11:48:51 Polycythe noé vera (clinical ) 093839020 Active 2024 NEHA MCDANIEL MD [address] [place] [address],[place] [address], [place], [address] , [place] - [facility] 11:49:28 Problem Notes None recorded. Procedures Surgical History Date Name Laterality Status Provider Name and Address Organization Details Recorded Time 03/01/2024 Air & Speech Audio with Tymps (22955, 05683 & 29327) completed DENNIS MOLINA, AUD 100 [facility] 100, [place], [address], [place] - [facility] 03/01/2024 11:13:43 Imaging Results Imaging Date [...] by mouth 03/06 completed Medicati on ID: [id number] P donato d By Name: Ja Gaines [...] 24 hr 03/06 completed Medicati on ID: [id number] B rand Name: metoprol ol succinat e Send Method: E-Prescr ibed Sub s Allowed: subs OK Medic ationGen ericName : metoprol ol succinat e Not Available Not Available Not Available amlodipin e 5 mg tablet TAKE 1 TABLET BY MOUTH EVERY DAY active Not Available Not Available No t Available aspirin 81 mg tablet,de layed release active Medicati on ID: [id number] B rand Name: aspirin Send Method: E-Prescr ibed Sub s Allowed: subs OK Medic ationGen ericName : aspirin Not Available Not Available Not Available ofloxacin 0.3 % ear drops Instill 4 drop twice a day 2020 active Medicati on ID: [id number] D uration Value: 10 Prescri bed By [...] mg tablet 03/06 completed Medicati on ID: [id number] B rand Name: losartan Send Method: E-Prescr [...] to skin 2019 active Medicati on ID: [id number] D uration Value: 7 Prescri bed By Name: Ja Gaines nd Name: carlita rutledge Rylan d Method: E-Prescr ibed Sub s Allowed: subs OK Speci al Instruct ion: 3 drops BID for 7 days Med icationG enericNa me: fluosandeepo alconcosme Not Available Not Available Not Available Pepcid 20 mg tablet Take 1 tablet by mouth twice a day 03/06 completed Medicati on ID: [id number] B rand Name: Pepcid S end Method: [...] SNOMED-CT Code Diagnosis ICD10 Code Diagnosis Note [id number] NEHA MCDANIEL MD [facility] of [address] [address] 03/01/2024 10:57:39 03/01/2024 11:51:31 Sensorineural hearing loss of bilateral ears 001718887 H90.3 Bilateral tinnitus 67053 27177 102 H93.13 Polycythem ia vera (clinical) 715909465 D45 [id number] LYNDA BARGER [facility] of [address] [address] 03/01/2024 11:13:12 03/04/2024 07:40:30 Bilateral tinnitus 1330017220 102 H93.13 Right Ear:Normal hearing through 6K Hz sloping to a mild SNHL with excellent speech discrimina tion.Type A tympanogra m.Left Ear:Normal hearing through 6K Hz sloping to a mild SNHL with excellent speech discrimina tion.Type A tympanogra m. Sensorineu ral hearing loss 48051619 H90.42 Health Concerns Section Related Observation LastModified by Organization Detai ls LastModified Time None Recorded Concern Status LastModified by Organization Details LastModified Time None Recorded Advance Directives Directive None Recorded Payers Encounter Date Sequence Insurance Name Policy Number Policy Cote Covered Member ID Cote Member ID Guarantor Name 03/01/2024 2 [facility] [id number] Dustin Rogers [id number] Dustin Rogers 03/01/2024 1 [place] [employer] Dustin Rogers [id number] Dustin Rogers 03/01/2024 2 [facility] (O) [id number] Dustin Saleema [id number] Dustin Rogers 03/01/2024 1 [place] [employer] Dustin Rogers [id number] Dustin Rogers Notes Date Note Type Note Provider Name and Address Organization Details Recorded Time 03/01/2024 text/html Overall feels things are stableDealing with PCV--fatigueGetting phlebotomy every month or so NEHA ZELAYA MD [address] [place] [address], [place], [address], [facility] - [facility] 03/01/2024 11:49:47
--- OUTSIDE RECORDS SUMMARY | 2024-06-05 16:41 | XMS_ITS | Clinical Summary ---
Author Organization [facility] 299 [facility] Address [address] [place] [address] Phone Care Team Providers Care Self Rising Flour Mixer Name Role Phone Bakari Crawford MD Primary Care Provider [phone] Allergies No known active allergies Encounters Date Type Department Care Team Description 05/13/2024 Telephone Gastroenterology - [address] [address] Maggy Queen MA Results 05/10/2024 Telephone Gastroenterology - [address] [address] Chantel Rogers MA 04/18/2024 Telephone Gastroenterology - [address] [address] Tyron Gil MA Results 04/17/2024 2:56 PM EST - 04/17/2024 11:59 PM EST Hospital Encounter [facility] MRI [address] [place] [address] Right inguinal pain Discharge Disposition: Home or Self Care 04/17/2024 2:56 PM EST - 04/17/2024 11:59 PM EST Hospital Encounter [facility] MRI [address] [place] [address] Right lower quadrant abdominal pain Discharge Disposition: Home or Self Care 04/10/2024 1:40 PM EST Office Visit Gastroenterology - [address] [address] Kim Dougherty, NAMRATA Right lower quadrant abdominal pain (Primary Dx) from Last 3 Months Social History Tobacco Use Types Packs/Day Years Used Date Smoking Tobacco: Never Assessed Sex and Gender Information Value Date Recorded Sex Assigned at Not on file Legal Sex Male 9:16 PM EST Gender Identity Not on file Sexual Orientation Not on file Last Filed Vital Signs Vital Sign Reading Time Taken Comments Blood Pressure - - Pulse - - Temperature - - Respiratory Rate - - Oxygen Saturation - - Inhaled Oxygen Concentration - - Weight - - Height 172.7 cm (5' 8 ) 04/10/2024 1:39 PM EST Body Mass Index - - Plan of Treatment Health Maintenance Due Date Last Done Comments COVID-19 Vaccine (#1) 11/30/1955 DTaP,Tdap,and Td Vaccines (1 - Tdap) 1969 Hepatitis A Vaccines (1 of 2 - Risk 2-dose series) 1969 Pneumococcal Vaccine: 50+ Ye ars (1 of 2 - PCV) 1969 Zoster Vaccines (1 of 2) 1969 Hepatitis B Vaccines (1 of 3 - Risk 3-dose series) 2010 RSV Immunization Adult Patie nts (1 - Risk 60-74 years 1-dose series) 2010 Abdominal Aortic Aneurysm (A AA) Screen 03/21/2024 Cholesterol Screening (Lipid Panel) 03/21/2024 02/26/2019 Depression Screening 03/21/2024 Falls Risk Assessment 03/21/2024 Hepatitis C Screening 03/21/2024 Medicare Annual Wellness Visit 03/21/2024 Social Influencers of Health Screening 03/21/2024 Influenza Vaccine (Season Ended) 2024 Colorectal Cancer Screening: Colonoscopy 04/11/2034 04/11/2024 HIB Vaccines Aged Out No longer eligi [...] patient's age to complete this topic Meningococcal B Vaccine Aged Out No l onger eligible based on patient's age to complete this topic RSV Immunization Patients Un kelsey 20 months Aged Out No longer eligible b ased on patient's age to complete this topic Varicella Vaccines Aged Out No longer eligible based on patient's age to complete this topic Procedures Procedure Name Priority Date/Time Associated Diagnosis Comments MR PELVIS WO AND W CONTRAST Routine 04/17/2024 4:45 PM EST Right inguinal pain MR ABDOMEN WO AND W CONTRAST Routine 04/17/2024 4:45 PM EST Right lower quadrant abdominal pain EXTERNAL COLONOSCOPY REPORT Routine 04/11/2024 8:51 AM EST from Last 3 Months Results * MR Pelvis wo and w Contrast (04/17/2024 4:45 PM EST) Anatomical Region Laterality Modality Pelvis, Body Magnetic Resonan ce 04/17/2024 11:2 8 PM EST Addenda Addendum by Tish Dalal MD on 05/07/2024 2:42 PM EDT Original report stated erroneously (due to dictation error) that there is a concern for mass and should have stated that there is no visible mass in the cecum but IF there is concern correlation with CT/colonoscopy is recommended. -------- ADDENDUM -------- Dictated By: Tish Dalal Dictated Date: 05/07/2024 14:38 ET Assigned Physician: Tish Dalal Reviewed and Electronically Signed By: Tish Dalal Signed Date: 05/07/2024 14:42 ET Workstation ID: [id number] Transcribed By: Self Edit Transcribed Date: 05/07/2024 14:38 ET Narrative 04/17/2024 11:44 PM EST MR PELVIS WO AND W CONTRAST INDICATION: Abdominal pain, acute, no prior medical history COMPARISON: MRI 02/2019. TECHNIQUE: STIR axial, T1-weighted gradient echo in-phase and [id number] axial, HASTE T2-weighted coronal and VIBE T1-weighted 3-dimensional fat saturated images acquired in the axial plane are provided. ??Intravenous 20cc Dotarem is then given followed by repeat VIBE sequences at multiple phases. FINDINGS: The bowel is overall unremarkable without evidence for acute inflammatory change. ??There is no evidence for bowel obstruction. ??There is sigmoid diverticulosis without acute diverticulitis. ??There is prominent stool burden within the cecum with hyperintense stool burden. ??There is concern for a mass in this location recommend correlation with CT. ??The appendix is visualized There is circumferential thickening of the bladder wall which is in part related to underdistention. ??This could be correlated with urinalysis if desired. ??Overall the prostate is unremarkable. ??There is slight asymmetric right peripheral zone of the prostate changes of benign prostatic hypertrophy. ??This exam was not protocoled for evaluation for neoplasm. ??Osseous structures demonstrate degenerative changes of the spine and joint space narrowing of the hips. ??There is no evidence for an acute osseous abnormality. ??There is no soft tissue edema. CONCLUSION: No significant abnormality. ??Prominent stool burden throughout the right colon. ?? -------- FINAL REPORT -------- Dictated By: Tish Dalal Dictated Date: 04/17/2024 23:28 ET Assigned Physician: Tish Dalal Reviewed and Electronically Signed By: Tish Dalal Signed Date: 04/17/2024 23:44 ET Workstation ID: [id number] Transcribed By: Self Edit Transcribed Date: 04/17/2024 23:28 ET Procedure Note Tish Dalal MD - 04/17/2024 MR PELVIS WO AND W CONTRAST INDICATION: Abdominal pain, acute, no prior medical history COMPARISON: MRI 02/2019. TECHNIQUE: STIR axial, T1-weighted gradient echo in-phase and [id number]-hl-[id number] axial,HASTE T2-weighted coronal and VIBE T1-weighted 3-dimensional fat saturatedimages acquired in the axial plane are provided. Intravenous 20cc Dotaremis then given followed by repeat VIBE sequences at multiple phases. FINDINGS: The bowel is overall unremarkable without evidence for acute inflammatorychange. There is no evidence for bowel obstruction. There is sigmoiddiverticulosis without acute diverticulitis. There is prominent stoolburden within the cecum with hyperintense stool burden. There is concernfor a mass in this location recommend correlation with CT. The appendixis visualized There is circumferential thickening of the bladder wallwhich is in part related to underdistention. This could be correlatedwith urinalysis if desired. Overall the prostate is unremarkable. Thereis slight asymmetric right peripheral zone of the prostate changes ofbenign prostatic hypertrophy. This exam was not protocoled for evaluationfor neoplasm. Osseous structures demonstrate degenerative changes of thespine and joint space narrowing of the hips. There is no evidence for anacute osseous abnormality. There is no soft tissue edema. CONCLUSION: No significant abnormality. Prominent stool burden throughout the rightcolon. -------- FINAL REPORT -------- Dictated By: Tish Dalal Dictated Date: 04/17/2024 23:28 ET Assigned Physician: Tish Dalal Reviewed and Electronically Signed By: Tish Dalal Signed Date: 04/17/2024 23:44 ET Workstation ID: [id number] Transcribed By: Self Edit Transcribed Date: 04/17/2024 23:28 ET Kim Dougherty NP IMG MRI PROCEDURES Edited Res ult - Final * MR Abdomen wo and w Contrast (04/17/2024 4:45 PM EST) Anatomical Region Laterality Modality Body Magnetic Resonan ce 04/17/2024 11:1 5 PM EST Impressions 04/17/2024 11:28 PM EST Essentially negative MRI of the abdomen which is unchanged from 2019. ??MRI of the pelvis dictated separately. -------- FINAL REPORT -------- Dictated By: Tish Dalal Dictated Date: 04/17/2024 23:15 ET Assigned Physician: Tish Dalal Reviewed and Electronically Signed By: Tish Dalal Signed Date: 04/17/2024 23:28 ET Workstation ID: [id number] Transcribed By: Self Edit Transcribed Date: 04/17/2024 23:15 ET Narrative 04/17/2024 11:28 PM EST MR ABDOMEN WO AND W CONTRAST INDICATION: Abdominal pain, acute, no prior medical history COMPARISON: MRI 02/2019. TECHNIQUE: STIR axial, T1-weighted gradient echo in-phase and wav-xy-hjfyy axial, HASTE T2-weighted coronal and VIBE T1-weighted 3-dimensional fat saturated images acquired in the axial plane are provided. ??Intravenous 20cc Dotarem is then given followed by repeat VIBE sequences at multiple phases. FINDINGS: The liver is unremarkable. ??Small presumed reactive nodes in the giles hepatis. ??There is some wall thickening at the fundus of the gallbladder which could represent adenomyomatosis this thickening at the gallbladder fundus has been present since 2019. ??There are also very tiny subcentimeter polyps which have not significantly changed since the MRI 2019. ??. ??Normal appearance of the spleen with tiny adjacent splenule. ??No pancreatic mass or ductal dilatation. ??There is a tiny 2 mm cyst in the pancreatic body which is stable from 2020 could represent a cyst or sidebranch IPMN. ??There are bilateral renal cysts. ??There is no evidence for a renal lesion. ??Adrenals are unremarkable. 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 ??Normal caliber aorta. ??Visualized upper bowel is unremarkable. Procedure Note Tish Dalal MD - 04/17/2024 MR ABDOMEN WO AND W CONTRAST INDICATION: Abdominal pain, acute, no prior medical history COMPARISON: MRI 02/2019. TECHNIQUE: STIR axial, T1-weighted gradient echo in-phase and [id number]-ku-pxokj axial,HASTE T2-weighted coronal and VIBE T1-weighted 3-dimensional fat saturatedimages acquired in the axial plane are provided. Intravenous 20cc Dotaremis then given followed by repeat VIBE sequences at multiple phases. FINDINGS: The liver is unremarkable. Small presumed reactive nodes in the portahepatis. There is some wall thickening at the fundus of the gallbladderwhich could represent adenomyomatosis this thickening at the gallbladderfundus has been present since 2019. There are also very tinysubcentimeter polyps which have not significantly changed since the [id number]. . Normal appearance of the spleen with tiny adjacent splenule. Nopancreatic mass or ductal dilatation. There is a tiny 2 mm cyst in thepancreatic body which is stable from 2020 could represent a cyst orsidebranch IPMN. There are bilateral renal cysts. There is no evidencefor a renal lesion. Adrenals are unremarkable. There is narrowing of theorigin of the celiac artery. Normal caliber aorta. Visualized upperbowel is unremarkable. IMPRESSION: Essentially negative MRI of the abdomen which is unchanged from 2020. MRIof the pelvis dictated separately. -------- FINAL REPORT -------- Dictated By: Tish Dalal Dictated Date: 04/17/2024 23:15 ET Assigned Physician: Tish Dalal Reviewed and Electronically Signed By: Tish Dalal Signed Date: 04/17/2024 23:28 ET Workstation ID: [id number] Transcribed By: Self Edit Transcribed Date: 04/17/2024 23:15 ET Kim Dougherty BOAT JOINER IMG MRI PROCEDURES Final Resu lt * External Colonoscopy Report (04/11/2024 8:51 AM EST) Anatomical Region Laterality Modality Endoscopy Historical Provider GI~PROCEDURE ORDERABLES F inal Result from Last 3 Months Insurance MEDICARE [facility] Care Teams Self Rising Flour Mixer Relationship Specialty Start Date End Date Bakari Crawford MD [facility] [address] [place] [address] PCP - General Family Medicine 03/21/24
--- OUTSIDE RECORDS SUMMARY | 2024-06-05 16:41 | XMS_ITS | Encounter Summary ---
Author Organization [facility] Address [id number] [place] [address] Care Team Providers Care Assembler Metal Furniture Name Role Phone Bakari Crawford MD Primary Care Provider [phone] Encounter Details Date Type Department Care Team (Late st Contact Info) Description 05/10/2024 Telephone Gastroenterology - [address] [place] [address] Chantel Rogers MA Social History Tobacco Use Types Packs/Day Years Used Date Smoking Tobacco: Never Assessed Sex and Gender Information Value Date Recorded Sex Assigned at Not on file Legal Sex Male 9:16 PM EST Gender Identity Not on file Sexual Orientation Not on file documented as of this encounter Progress Notes * Chantel Rogers MA - 05/10/2024 8:46 AM EDT ----- Message from Darryl Dougherty NP sent at 05/09/2024 4:45 PM EDT ----- Regarding: MRI result Please let pt know MRI negative except for constipation. How doing? ----- Message ----- From: Interface, Incoming Ancillary Results - Imaging Results Ps360 Sent: 04/17/2024 11:49 PM EDT To: Kim Dougherty NP documented in this encounter Plan of Treatment Not on file documented as of this encounter Visit Diagnoses Not on filedocumented in this encounter Care Teams Assembler Metal Furniture Relationship Specialty Start Date End Date Bakari Crawford MD [facility] [address] [place] [address] PCP - General Family Medicine 03/21/24 documented as of this encounter
--- OUTSIDE RECORDS SUMMARY | 2024-06-05 16:41 | XMS_ITS ---
Author Name Interface, [id number] lity Address [address] [place] [address] Organization [facility] Address [facility] [place] [address] Care Team Providers Care Environmental Services Aide Name Role Phone Dustin Russell Unavailable Unavailable Allergies and Adverse Reactions Medication/Group Name Reaction Severity Date No known allergies Plan Date Type Value 08/11/2023 APPOINTMENT FOLLOW UP OTHER 08/09/2023 APPOINTMENT PHLEBOTOMY Reason for Visit FOLLOW UP OTHER Diagnostic Results Date Type Test Units Lower Limit Upper Limit Result Flag Comments Status Ordered By Specimen Source Lab Address 08/08 WBC 10 4.5 10.5 6.7 FINAL [facility] RBC 10 4.7 6.1 5.22 FINAL Dust[facility] 08/08 HGB g/dL 14.0 17.0 13.4 Low FINAL Dustin Russell [place] 08/08 HCT % 42.0 51.0 42.2 FINAL Dustin Russell [place] 08/08 MCV fL 80.0 95.0 80.8 FINAL Dustin Russell [place] 08/08 MCH pg 26.0 32.0 25.7 Low FINAL [facility] 08/08 MCHC g/dL 33.0 37.0 31.8 Low FINAL Dustin Russell [place] 08/08 RDW-S D fL 35.1 43.9 44.3 High FINAL Dustin Russell [place] 08/08 RDW-C V, % % 11.6 14.4 15.0 High FINAL Dustin Russell [place] 08/08 PLT 10 140.0 400.0 453 High FINAL Dustin Russell [place] 08/08 MPV fL 7.4 10.4 9.0 FINAL Dustin [place] 08/08 Gran % % 34.0 71.1 71.7 High FINAL Dustin [place] 08/08 LY % % 19.3 53.1 17.8 Low FINAL Dustin [place] 08/08 MO % % 4.7 12.5 8.6 FINAL Dustin [place] 08/08 Gran # 10 1.56 6.13 4.83 FINAL Dustin [place] 08/08 LY # 10 1.2 3.7 1.2 FINAL Dustin [place] 08/08 MO # 10 0.2 0.8 0.6 FINAL Dustin [place] 08/08 EO % % 0.7 7.0 1.2 FINAL Dustin [place] 08/08 BA % % 0.1 1.2 0.4 FINAL Dustin [place] 08/08 IG % % 0.0 5.0 0.3 FINAL Dustin [place] 08/08 EO # 10 0.0 0.5 0.1 FINAL Dustin [place] 08/08 BA # 10 0.01 0.08 0.03 FINAL Dustin [place] 08/08 IG # 10 0.0 0.5 0.0 FINAL Dustin [place] Medications Date Name Route Dose Frequency Instructions Start Date End Date Status Docosahexanoic Acid-Eicosapentano ic Acid Oral 120 mg-180 mg PO 1Qd active Hydroxyurea Oral PO QOD active Temazepam Oral PO PRN ac tive Amlodipine Oral 1Qd a ctive Cholecalciferol Oral PO 1Qd active 024 hydroxyurea 500 MG Oral Capsule 024 active 022 aspirin 81 MG Oral Capsule orally 1.0 capsule daily 022 active Problems Diagnosis Status Date of Diagnosi s Essential thrombocythemia (disorder) Active Thrombocytosis (disorder) Active Vital Signs Date Type Value 08/09/2023 Intravascular Systolic 146 08/09/2023 Intravascular Diastolic 88 08/09/2023 Height 68.00 08/09/2023 Intravascular Systolic 165 08/09/2023 Intravascular Diastolic 96 08/11/2023 BSA 1.92 08/11/2023 Intravascular Systolic 174 08/11/2023 Intravascular Diastolic 82 08/11/2023 Pain Scale 0.00 08/11/2023 Weight 173.50 08/11/2023 Height 68.00 08/11/2023 BMI 26.38 08/11/2023 Respiratory Rate 16.00 08/11/2023 Heart Beat 109.00 08/11/2023 Body Temperature 99.00 08/11/2023 Oxygen Saturation 97.00 Notes Section * Nurse Note for: 09-AUG-23 [facility] Nurse Note Print Location: Unknown Date/Time Printed: 06/05/2024 13:41 ([facility]) Patient: Dustin Rogers Sex: Male : 1950 Date of Service: 08/09/2023 Allergies : No Known Allergies Vital Signs : Time: 16:58. Height: 68 (in) . Blood pressure: 146/88 (mm Hg). Entered by Bryan Zhao 08/09/2023 16:59 Patient Assessment : IV Access/Lab Draw : IV Access-Lab Draw Only - Fingerstick, , Primary Bag Start Time-16:17, Needle Size-Lancet, Access Site-Left Hand, Comments-cbc Entered By Bryan Zhao on 16:17 IV Access/Lab Draw : IV Access-Peripheral - New Start, , Primary Bag Start Time-16:30, Primary Bag Stop Time-16:50, Needle Size-18 Gauge, Access Site-Right Arm, Comments-removed 350cc of blood Entered By Bryan Zhao on 16:58 Procedures : Complete blood count with white cell differential, automated (procedure) - Associated Problem(s): Thrombocytosis (disorder) *; Selected Billing Code(s): BLOOD COUNT AUTOMATED DIFFERENTIAL WBC COUNT (75222) Entered By Bryan Zhao; Incident to Dustin Russell MD Therapeutic phlebotomy (procedure) - Associated Problem(s): Thrombocytosis (disorder) *; Essential thrombocythemia (disorder); Comment: Remove 250cc's of blood. Hold if Hct < 42%; Volume Removed: 350 cc removed, Access Site: Right arm, Instructions: Eat regularly, Leave pressure dressing in place for 2 hours, Increase fluids, Change positions slowly, No strenuous activity, No prolonged standing, Discharge Status: Ambulatory, Selected Billing Code(s): PHLEBOTOMY THERAPEUTIC SEPARATE PROCEDURE(84699) Entered By Bryan Zhao; Incident to Dustin Russell MD
--- OUTSIDE RECORDS SUMMARY | 2024-06-05 16:41 | XMS_ITS | CCD ---
Author Name Interface, [id number] lity Address [address] [place] [address] Organization [facility] Address [address] [place] [address] Care Team Providers Care System Support Specialist Name Role Phone Dustin Russell Unavailable Unavailable Allergies and Adverse Reactions Care Plan Reason for Visit Encounters Diagnostic Results Medications Problems Procedures Social History Vital Signs
--- OUTSIDE RECORDS SUMMARY | 2024-06-05 16:42 | XMS_ITS ---
Author Name Interface, [id number] lity Address [address] [place] [address] Organization [facility] Address [facility] [place] [address] Care Team Providers Care Kitchen Stewardess Name Role Phone Dustin Russell Unavailable Unavailable Allergies and Adverse Reactions Medication/Group Name Reaction Severity Date No known allergies Plan Date Type Value 08/11/2023 APPOINTMENT FOLLOW UP OTHER Reason for Visit FOLLOW UP OTHER Encounters Date Name 08/11/2023 Thrombocytosis (diso rder) Medications Date Name Route Dose Frequency Instructions [...] (disorder) Active Vital Signs Date Type Value 08/11/2023 Body Temperature 99.00 08/11/2023 Heart Beat 109.00 08/11/2023 Respiratory Rate 16.00 08/11/2023 Oxygen Saturation 97.00 08/11/2023 BSA 1.92 08/11/2023 Pain Scale 0.00 08/11/2023 Weight 173.50 08/11/2023 Height 68.00 08/11/2023 BMI 26.38 08/11/2023 Intravascular Systolic 174 08/11/2023 Intravascular Diastolic 82
--- OUTSIDE RECORDS SUMMARY | 2024-06-05 16:42 | XMS_ITS ---
Author Name Interface, [id number] lity Address [address] [place] [address] Organization [facility] Address [facility] [place] [address] Care Team Providers Care Emulsification Operator Name Role Phone Dustin Russell Unavailable Unavailable [...]
--- OUTSIDE RECORDS SUMMARY | 2024-06-05 16:42 | XMS_ITS ---
Author Name Interface, [id number] lity Address [address] [place] [address] Organization [facility] Address [facility] [place] [address] Care Team Providers Care Radiology Orderly Name Role Phone Dustin Russell Unavailable Unavailable [...] WBC 10 4.5 10.5 6.7 FINAL [facility] [place] 08/[facility] RBC 10 4.7 6.1 5.22 FINAL Dust[facility] [place] 08/08 HGB g/dL 14.0 17.0 13.4 Low FINAL Dustin [place] 08/08 HCT % 42.0 51.0 42.2 FINAL Dustin [place] 08/08 MCV fL 80.0 95.0 80.8 FINAL Dustin [place] 08/08 MCH pg 26.0 32.0 25.7 Low FINAL Dust[facility] [place] 08/08 MCHC g/dL 33.0 37.0 31.8 Low FINAL Dustin Russell [place] 08/08 RDW-S D fL 35.1 43.9 44.3 High FINAL Dustin Russell [place] 08/08 RDW-C V, % % 11.6 14.4 15.0 High FINAL Dustin Russell [place] 08/08 PLT 10 140.0 400.0 453 High FINAL Dustin [place] 08/08 MPV fL 7.4 10.4 9.0 FINAL [...] # 10 1.2 3.7 1.2 FINAL [place]in [place] 08/08 MO # 10 0.2 0.8 [...] Print Location: Unknown Date/Time Printed: 06/05/2024 13:41 ([facility]) Patient: Dustin Rogers Sex: Male : 1950 [...] Code(s): BLOOD COUNT AUTOMATED DIFFERENTIAL WBC COUNT (31865) Entered By Bryan Zhao; Incident to Dustin [...] Ambulatory, Selected Billing Code(s): PHLEBOTOMY THERAPEUTIC SEPARATE PROCEDURE(29543) Entered By Bryan Zhao; Incident to Dustin Russell MD
--- OUTSIDE RECORDS SUMMARY | 2024-06-05 16:42 | XMS_ITS | CCD ---
Author Name Interface, [id number] lity Address [address] [place] [address] Organization [facility] Address [address] [place] [address] Care Team Providers Care Crew Foreman Name Role Phone Dustin Russell Unavailable Unavailable Allergies and Adverse Reactions Care Plan Reason for Visit Encounters Diagnostic Results Medications Problems Procedures Social History Vital Signs
== END 2024-06-05 13:59 | disposition home or self-care (01) ==
LOC: HO.BBR 13:58
PROVIDERS: PCP Family Medicine; Visit Provider Internal Medicine Hematology
DX: D45 Polycythemia vera (principal)
CPT/HCPCS: 85018; 99195

== ENCOUNTER 2024-07-18 13:57 | Outpatient (REF) | payer MEDICARE, OTHER, SELFPAY ==
--- OUTSIDE RECORDS SUMMARY | 2024-07-18 14:11 | XMS_ITS | CCD ---
Author Name Interface, [id number] lity Address [address] [place] [address] Organization [facility] Address [address] [place] [address] Care Team Providers Care Transformation Specialist Name Role Phone Dustin Russell Unavailable Unavailable Allergies and Adverse Reactions Care Plan Reason for Visit Encounters Diagnostic Results Medications Problems Procedures Social History Vital Signs
== END 2024-07-18 13:58 | disposition home or self-care (01) ==
LOC: HO.BBR 13:57
PROVIDERS: PCP Family Medicine; Visit Provider Internal Medicine Hematology
DX: D45 Polycythemia vera (principal)
CPT/HCPCS: 85018; 99195

== ENCOUNTER 2024-09-06 13:57 | Outpatient (REF) | payer MEDICARE, OTHER, SELFPAY ==
--- OUTSIDE RECORDS SUMMARY | 2024-09-06 14:00 | XMS_ITS | Clinical Summary ---
Author Organization [facility] [address] [facility] Address [address] [place] [address] Phone Care Team Providers Care Feeder Tender Name Role Phone Bakari Crawford MD Primary Care Provider [phone] Allergies No known active allergies Social History Tobacco Use Types Packs/Day Years [...] Influencers of Health Screening 03/21/2024 Influenza Vaccine (#1) 2024 Colorectal Cancer Screening: Colonoscopy 04/11/2034 04/11/2024 [...] Procedure Name Priority Date/Time Associated Diagnosis Comments EXTERNAL COLONOSCOPY REPORT Routine 04/11/2024 8:51 AM EST from Last 3 Months or Most Recently Relevant to Health Maintenance Results * External Colonoscopy Report (04/11/2024 8:51 AM EST) Anatomical Region Laterality Modality Endoscopy us Historical Provider GI~PROCEDURE ORDERABLES F inal Result from Last 3 Months or Most Recently Relevant to Health Maintenance Insurance MEDICARE [facility] Care Teams Feeder Tender Relationship Specialty Start Date End Date Bakari Crawford MD [facility] [address] [place] [address] PCP - General Family Medicine 03/21/24
--- OUTSIDE RECORDS SUMMARY | 2024-09-06 14:00 | XMS_ITS | Data Portability ---
Author Organization [place] - [facility], Allergy Address [address] [address] Care Team Providers Care Wood Gang Sawyer Name Role Phone SARMAD ANABEL Primary Care Provider Assessment Encounter Date [...] Recorded Time Impacted cerumen in left ear [id number] Active 2019 Impacted cerumen, left ear; Note: Date Diagnosed : 03/26/2019 1:38 PM (H61.22) Not Available [facility] 4 02:56:46 Thyroidit is 33198114 Active 2019 Thyroidit is, unspecifi ed; Note: Date Diagnosed : 03/26/2019 1:37 PM (E06.9) Not Available [facility] 4 02:56:47 Itching of skin 134186173 Active 2019 Other pruritus; Note: Date Diagnosed : 09/23/2019 4:59 PM (L29.8) Not Available [facility] 4 02:56:45 Tinnitus of left ear 79677674649 06 Active 2019 Tinnitus, left ear; Note: Date Diagnosed : 09/23/2019 4:18 PM (H93.12) Not Available [facility] 4 02:56:44 Bilateral tinnitus 25398847968 02 Active 2020 Tinnitus, bilateral ; Note: Date Diagnosed : 06/24/2020 4:16 PM (H93.13) Not Available [facility] 4 02:56:47 Abrasion of skin of left ear 61087940611 225518 Active 2020 Abrasion of left ear, initial encounter ; Note: Date Diagnosed : 06/29/2020 4:02 PM (S00.412A ) Not Available [facility] 4 02:56:44 Benign paroxysma l positiona l vertigo 183441827 Active 2020 Benign paroxysma l vertigo, right ear; Note: Date Diagnosed : 06/29/2020 4:03 PM (H81.11) Not Available [facility] 4 02:56:45 Sensorine ural hearing loss 22069984 Active 2022 Sensorine ural hearing loss, unilatera l, left ear, with unrestric tho hearing on the contralat eral side; Note: Date Diagnosed : 03/07/2022 11:45 AM (H90.42) Not Available [facility] 4 02:56:46 Sensorine ural hearing loss of bilateral ears 258719588 Active 2024 NEHA MCDANIEL MD [address] [place] [address],[place] [address], [place], [address] , [place] - [facility] 5 11:48:51 Polycythe noé vera (clinical ) 384472707 Active 2024 NEAH MCDANIEL MD [address] [place] [address],[place] [address], [place], [phone] , [place] - [facility] 11:49:28 Problem Notes None recorded. Procedures Surgical History Date Name Laterality Status Provider Name and Address Organization Details Recorded Time 03/01/2024 Air & Speech Audio with Tymps - 55720, 22535 & 11901 completed DENNIS MOLINA, AUD [address] [facility] [address], [place], [address], [facility] - [facility] 03/01/2024 11:13:43 Imaging Results None recorded. Procedure Notes None recorded. Medical Equipment None Reported. Medications Name Sig Start Date Stop Date Status Note LastModified by Organization Details LastModified Time hydroxyur ea 500 mg capsule TAKE 1 CAPSULE BY MOUTH EVERY OTHER DAY active Not Available Not Available No t Available prednison e 10 mg tablet by mouth 03/06 completed Medicati on ID: [id number] Britta booker By Name: Ja Gaines nd [...] 24 hr 03/06 completed Medicati on ID: [id number] B rand Name: metoprol ol succinat e Send Method: E-Prescr ibed Sub s Allowed: subs OK Medic ationGen ericName : metoprol ol succinat e Not Available Not Available Not Available amlodipin e 5 mg tablet TAKE 1 TABLET BY MOUTH EVERY DAY active Not Available Not Available No t Available aspirin 81 mg tablet,de layed release active Medicati on ID: [id number] B rand Name: aspirin Send Method: E-Prescr ibed Sub s Allowed: subs OK Medic ationGen ericName : aspirin Not Available Not Available Not Available ofloxacin 0.3 % ear drops Instill 4 drop twice a day 2020 active Medicati on ID: [id number] D uration Value: 10 Prescri bed By [...] mg tablet 03/06 completed Medicati on ID: [id number] B rand Name: losartan Send Method: E-Prescr [...] to skin 2019 active Medicati on ID: [id number] D uration Value: 7 Prescri bed By Name: Ja Gaines nd Name: fluocino loncosme Sen d Method: E-Prescr ibed Sub s Allowed: subs OK Speci al Instruct ion: 3 drops BID for 7 days Med icationG enericNa me: fluocino lone Not Available Not Available Not Available Pepcid 20 mg tablet Take 1 tablet by mouth twice a day 03/06 completed Medicati on ID: [id number] B rand Name: Pepcid S end Method: [...] SNOMED-CT Code Diagnosis ICD10 Code Diagnosis Note [id number] NEHA MCDANIEL MD [facility] [address] [address] 03/01/2024 10:57:39 03/01/2024 11:51:31 Sensorineural hearing loss of bilateral ears 343675777 H90.3 Bilateral tinnitus 65625 49463 102 H93.13 Polycythem ia vera (clinical) 671102018 D45 [id number] LYNDA BARGER [facility] [address] [address] 03/01/2024 11:13:12 03/04/2024 07:40:30 Bilateral tinnitus 3132427027 102 H93.13 Right Ear:Normal hearing through 6K Hz sloping to a mild SNHL with excellent speech discrimina tion.Type A tympanogra m.Left Ear:Normal hearing through 6K Hz sloping to a mild SNHL with excellent speech discrimina tion.Type A tympanogra m. Sensorineu ral hearing loss 50599092 H90.42 Health Concerns Section Related Observation LastModified by Organization Detai ls LastModified Time None Recorded Concern Status LastModified by Organization Details LastModified Time None Recorded Advance Directives Directive None Recorded Payers Insurance Date Sequence Insurance Name Policy Number Policy Cote Covered Member ID Cote Member ID Guarantor Name 03/01/2024 2 [facility] [id number] Dustin Rogers [id number] Dustin Rogers 02/27/2024 1 [place] [facility] Dustin Rogers [id number] Dustin Rogers Notes Date Note Type Note Provider Name and Address Organization Details Recorded Time 03/01/2024 text/html Overall feels things are stableDealing with PCV--fatigueGetting phlebotomy every month or so NEHA ZELAYA MD [address] [place] [address], [place], [address], [place] - [facility] 03/01/2024 11:49:47
--- OUTSIDE RECORDS SUMMARY | 2024-09-06 14:00 | XMS_ITS | Clinical Summary ---
Author Organization [facility] Address [address] [facility] [address] [place] [address] Phone Care Team Providers Care Groover And Turner Name Role Phone Byron Aguilar MD Primary Care Provid er Allergies Active Allergy Reactions Criticality Noted Date Comments Iodinated Contrast Media Other (See Comments) 12/29/2017 Per pt report: jitters Medications aluminum chloride (DRYSOL TOP) underarm Active temazepam (RESTORIL) 15 mg capsule 1 capsule at bedtime as needed Orally Once a day Active famotidine (PEPCID) 20 MG tablet Take 20 mg by mouth daily. Active amLODIPine (NORVASC) 5 MG tablet Take 5 mg by mouth daily. Active cetirizine (ZYRTEC) 10 MG tablet Take 10 mg by mouth daily. Active omega 2-nni-cyv-fish oil 1,000 mg (120 mg-180 mg) Cap Take 1 capsule by mouth daily. Active cholecalciferol (VITAMIN D3) 25 MCG (1,000 unit) tablet Take 1,000 Units by mouth daily. Active Active Problems Problem Noted Date Diagnosed Date Thyroiditis 12/31/2018 Hoarseness 12/31/2018 Acquired hallux rigidus 01/10/2014 Overview (04/12/2014): Hallux rigidus Steatosis of liver 10/05/2012 Overview (04/12/2014): Fatty liver - Mild Abdominal pain 10/05/2012 Overview (04/12/2014): Abdominal pain - Periumbilical Uncoded Polyp of gallbladder - Small 10/05/2012 Overview (04/12/2014): Polyp of gallbladder - Small Swollen abdomen 10/05/2012 Overview (04/12/2014): Bloating Diarrhea 10/05/2012 Overview (04/12/2014): Diarrhea Family History Medical History Relation Comments Diabetes Brother Hypertension Brother CV disease Father Heart disease Father Hypertension Father Aneurysm Mother Stroke Mother Hypertension Sister Relation Status Comments Brother Alive Father Mother Sister Alive Social History Tobacco Use Types Packs/Day Years Used Date Smoking Tobacco: Never Smokeless Tobacco: Never Alcohol Use Standard Drinks/Week Comments Yes 4 (1 standard drink = 0.6 oz pur e alcohol) occasional Education Answer Date Recorded Are you interested in more education? Not on sushma e 06/16/2022 Are you concerned about learning? Not on file 06/16/2022 No 06/16/2022 No 06/16/2022 Digital Access Answer Date Recorded No 07/18/2022 No 07/18/2022 Reliable internet access at home? Not on file 07/18/2022 Device with a working camera? Not on file Sex and Gender Information Value Date Recorded Sex Assigned at Male 11/16/2017 2:06 PM EDT Legal Sex Male 7:53 PM EST Gender Identity Male 11/16/2017 2:06 PM EDT Sexual Orientation Straight 11/16/2017 2: 06 PM EDT Last Filed Vital Signs Vital Sign Reading Time Taken Comments Blood Pressure 146/85 09/10/2020 3:00 PM EDT Pulse 89 09/10/2020 3:00 PM EDT Temperature 36.6 C (97.9 F) 09/10/2020 1:44 PM EDT Respiratory Rate 19 09/10/2020 3:00 PM EDT Oxygen Saturation 97% 09/10/2020 3:00 PM EDT Inhaled Oxygen Concentration - - Weight 79.4 kg (175 lb) 09/10/2020 1:44 PM EDT Height 172.7 cm (5' 8 ) 09/10/2020 1:44 PM EDT Body Mass Index 26.61 09/10/2020 1:44 PM EDT Plan of Treatment Health Maintenance Due Date Last Done Comments Adult Td,Tdap Booster 1950 DEPRESSION SCREENING 1962 HEPATITIS C SCREENING 1968 COLOGUARD 11/30/1995 COLONOSCOPY 11/30/1995 COLORECTAL CANCER SCREENING 11/30/1995 FIT TEST 11/30/1995 FOBT 11/30/1995 SIGMOIDOSCOPY 11/30/1995 VIRTUAL COLONOSCOPY 11/30/1995 PNEUMOCOCCAL VACCINES (50+ y ears) (1 of 1 - PCV) 2000 ZOSTER VACCINES (1 of 2) 2000 COVID-19 VACCINE (2 - 2023-2 5 season) 2023 05/20/2020 LIPID PANEL 02/27/2024 02/26/2019 RSV VACCINE (1 - 1-dose 75+ series) 2025 SMOKING STATUS SCREENING (On ce After 26 Yrs) Completed 09/10/2020 HEPATITIS A VACCINES Aged Out No long er eligible based on patient's age to complete this topic HIB VACCINES Aged Out No longer eligi ble based on patient's age to complete this topic MENINGOCOCCAL VACCINES (ACWY) Aged Out No longer eligible based on patient's age to complete this topic MENINGOCOCCAL VACCINES (B) Aged Out N o longer eligible based on patient's age to complete this topic Medical Devices Not on file Procedures Procedure Name Priority Date/Time Associated Diagnosis Comments LIPID PANEL Routine 02/26/2019 11:10 AM EST Hypertension, unspecified type Hyperlipidemia, unspecified hyperlipidemia type Reflux esophagitis from Last 3 Months or Most Recently Relevant to Health Maintenance Results * (ABNORMAL) Lipid panel (02/26/2019 11:10 AM EST) HDL 33 mg/dL [facility] Comment: Interpretation <40 mg/dL: Low HDL cholesterol (major risk factor for CHD) Greater than or equal to 60 mg/dL: High HDL cholesterol ( negative risk factor for CHD) HDL - cholesterol is affected by a number of factors, e.g. smoking, excerise, hormones, sex and age. CHOLESTEROL 222 0 - 240 mg/dL [facility] TRIGLYCERIDES 355(H) 30 - 160 mg/dL [facility] LDL 118 50 - 129 mg/dL [facility] Comment: LDL levels in terms of risk for coronary heart disease: <100 mg/dL: Optimal 100-129 mg/dL: Near or above optimal 130-159 mg/dL: Borderline high 160-189 mg/dL: High >190 mg/dL: Very High CARDIAC RISK RATIO 6.7(H) 3.4 - 5.0 C [facility] Blood 02/26/2019 11:1 0 AM EST 02/26/2019 11:12 AM EST us Byron Aguilar MD LAB BLOOD ORDERABLES Final Result [facility] [address] [place] [address] from Last 3 Months or Most Recently Relevant to Health Maintenance Insurance MEDICARE PART A & B [facility]ION MEDICARE SUPPLEMENT MEDICARE PART A & B [employer] MED[employer]ARE SUPPLEMENT MEDICARE PART A & B [employer] MEDICARE SUPPLEMENT MEDICARE PART A & B [facility] MEDICARE SUPPLEMENT MEDICARE PART A & B [facility] MEDICARE SUPPLEMENT MEDICARE PART A & B [facility] MEDICARE SUPPLEMENT MEDICARE PART A & B [facility] MEDICARE SUPPLEMENT MEDICARE PART A & B [facility] MEDICARE SUPPLEMENT MEDICARE PART A & [facility] Care Teams Groover And Turner Relationship Specialty Start Date End Date Byron Aguilar MD [address] [place] [address] PCP - General Internal Medicine 10/03/13 Additional Source Comments The information contained in this document represents components of the legal health record. It is not the complete legal health record.[facility]
--- OUTSIDE RECORDS SUMMARY | 2024-09-06 14:00 | XMS_ITS | Clinical Summary ---
Author Organization [facility] Address [address] [place] [address] Care Team Providers Care Environmental Sampling Technician Name Role Phone None, Provider Primary Care Provider Unavailabl e Allergies Active Allergy Reactions Criticality Noted Date Comments Doxycycline 05/03/2010 Joint pain Medications temazepam (RESTORIL) 15 mg capsule Take 15 mg by mouth at bedtime as needed. Active Social History Tobacco Use Types Packs/Day Years Used Date Smoking Tobacco: Never Smokeless Tobacco: Never Alcohol Use Standard Drinks/Week Comments Yes 3 (1 standard drink = 0.6 oz pur e alcohol) Sex and Gender Information Value Date Recorded Sex Assigned at Not on file Legal Sex Male 18:51 EST Gender Identity Not on file Sexual Orientation Not on file Obstetrics History Last Filed Vital Signs Vital Sign Reading Time Taken Comments Blood Pressure 131/85 05/04/2010 0729 EDT Pulse 71 05/04/2010 0729 EDT Temperature 36.3 C (97.3 F) 05/04/2010 0729 EDT Respiratory Rate 16 05/04/2010 0729 EDT Oxygen Saturation 98% 05/04/2010 0729 EDT Inhaled Oxygen Concentration - - Weight 79.4 kg (175 lb) 05/03/2010 1228 EDT Height 172.7 cm (5' 8 ) 05/03/2010 1228 EDT Body Mass Index 26.61 05/03/2010 1228 EDT Plan of Treatment Health Maintenance Due Date Last Done Comments Hepatitis C Screen 1950 Fall Risk Screening 11/30/2015 COVID-19 Vaccine ( - 2023-25 season) 2023 RSV Immunization ( o r 60+ Years) (1 - 1-dose 75+ series) 2025 Advance Directives For more information, please contact: [phone] * Full Code (Latest Code Status on File) Date Activated Date Inactivated Comments 05/03/2010 17:27 05/04/2010 13:42 Care Teams Environmental Sampling Technician Relationship Specialty Start Date End Date None, Provider PCP - General 05/03/10
--- OUTSIDE RECORDS SUMMARY | 2024-09-06 14:00 | XMS_ITS | CCD ---
Author Name Interface, [id number] lity Address [address] [place] [address] Organization [facility] Address [address] [place], [place] [address] Care Team Providers Care Engineering Lab Technician Name Role Phone Dustin Russell MD Unavailable Unavailable Allergies and Adverse Reactions Reason for Visit Medications Problems Procedures Social History
== END 2024-09-06 13:58 | disposition home or self-care (01) ==
LOC: HO.BBR 13:57
PROVIDERS: PCP Family Medicine; Visit Provider Internal Medicine Hematology
DX: D45 Polycythemia vera (principal)
CPT/HCPCS: 85018; 99195

== ENCOUNTER 2024-11-14 13:56 | Outpatient (REF) | payer MEDICARE, OTHER, SELFPAY ==
--- OUTSIDE RECORDS SUMMARY | 2024-11-14 18:27 | XMS_ITS | Clinical Summary ---
Author Organization [facility] Address [address] [place] [address] Phone Care Team Providers Care Manager Web Name Role Phone Byron Aguilar MD Primary [...] 10 mg by mouth daily. Active omega 8-txl-sur-fish oil 1,000 mg (120 mg-180 mg) Cap [...] 2000 ZOSTER VACCINES (1 of 2) 2000 LIPID PANEL 02/27/2024 02/26/2019 INFLUENZA VACCINE (#1) 2024 COVID-19 VACCINE (2 - 2024-2 6 season) 2024 05/20/2020 RSV VACCINE (1 - 1-dose 75+ series) [...] (02/26/2019 11:10 AM EST) HDL 33 mg/dL [facility] Comment: Interpretation <40 mg/dL: Low HDL cholesterol (major risk factor for CHD) Greater than or equal to 60 mg/dL: High HDL cholesterol ( negative risk factor for CHD) HDL - cholesterol is affected by a number of factors, e.g. smoking, excerise, hormones, sex and age. CHOLESTEROL 222 0 - 240 mg/dL [facility] TRIGLYCERIDES 355(H) 30 - 160 mg/dL [facility] LDL 118 50 - 129 mg/dL [facility] Comment: LDL levels in terms of risk for coronary heart disease: <100 mg/dL: Optimal 100-129 mg/dL: Near or above optimal 130-159 mg/dL: Borderline high 160-189 mg/dL: High >190 mg/dL: Very High CARDIAC RISK RATIO 6.7(H) 3.4 - 5.0 C [facility] Blood 02/26/2019 11:1 0 AM EST 02/26/2019 11:12 AM EST us Byron Aguilar MD LAB BLOOD ORDERABLES Final Result Performing Organization Address City/State/[facility] Co de Phone Number [facility] [address] [place] [address] from Last 3 Months or Most Recently Relevant to Health Maintenance Insurance MEDICARE PART A & B [facility] MEDICARE SUPPLEMENT MEDICARE PART A & B [employer] MEDICARE SUPPLEMENT MEDICARE PART A & B [employer] MEDICARE SUPPLEMENT MEDICARE PART A & B Member Subscriber Plan / Payer (Ef fective 2015-Present) Name:Dustin Rogers Member ID:[id number] Relation to Subscriber:Self Name:Dustin Rogers Subscriber ID:[id number] Payer ID:[id number] Group ID:Not on file Type:Medicare Address: [employer] [facility].[address] [address] [facility] MEDICARE SUPPLEMENT MEDICARE PART A & B [facility] MEDICARE SUPPLEMENT MEDICARE PART A & B [facility] MEDICARE SUPPLEMENT MEDICARE PART A & B [facility] [place] [phone] MEDICARE PART A & B [facility] MEDICARE SUPPLEMENT MEDICARE PART A & B [facility] SUPPLEMENT Care Teams Manager Web Relationship Specialty Start Date End Date Byron Aguilar MD [address] [place] [address] PCP - General Internal Medicine 10/03/13 Additional Source Comments The information contained in this document represents components of the legal health record. It is not the complete legal health record.[facility]
--- OUTSIDE RECORDS SUMMARY | 2024-11-14 18:27 | XMS_ITS ---
Author Name Interface, [id number] lity Address [address] [place] [address] Organization [facility] Address [facility] [place] [address] Allergies and Adverse Reactions Medication/Group Name Reaction Severity Date No known allergies Plan Date Type Value 08/11/2023 APPOINTMENT FOLLOW UP OTHER Reason for Visit FOLLOW UP OTHER Encounters Date Name 08/11/2023 Thrombocytosis (diso rder) Medications Date Name Route Dose Frequency Instructions Start Date End Date Status Fill Status Indication 06/01 Amlodip ine Oral 1Qd active 06/01 Choleca lcifero l Oral PO 1Qd active 05/01 Hydroxy urea Oral PO QOD active 06/01 Docosah exanoic Acid-Ei cosapen tanoic Acid Oral 120 mg-180 mg PO 1Qd active 06/01 Temazep am Oral PO PRN active 05/01 hydroxy urea 500 MG Oral Capsule 2023 active Essential thrombocythe noé (disorder) 06/01 aspirin 81 MG Oral Capsule orally 1.0 capsul e daily 2021 active Thrombocytos is (disorder) Problems Diagnosis Status Date of Diagnosis Resolution Date Essential thrombocythemia (disorder) Active Thrombocytosis (disorder) Active Vital Signs Date Type Value 08/11/2023 Body Temperature 99.00 08/11/2023 Heart Beat 109.00 08/11/2023 Respiratory Rate 16.00 08/11/2023 Oxygen Saturation 97.00 08/11/2023 BSA 1.92 08/11/2023 Pain Scale 0.00 08/11/2023 Weight 173.50 08/11/2023 Height 68.00 08/11/2023 BMI 26.38 08/11/2023 Intravascular Systolic 174 08/11/2023 Intravascular Diastolic 82
--- OUTSIDE RECORDS SUMMARY | 2024-11-14 18:27 | XMS_ITS ---
Author Name Interface, [id number] lity Address [address] [place] [address] Organization [facility] Address [facility] [place] [address] Allergies and Adverse Reactions Medication/Group Name Reaction Severity Date No known allergies Plan Date Type Value 08/11/2023 APPOINTMENT FOLLOW UP OTHER 08/09/2023 APPOINTMENT PHLEBOTOMY Reason for Visit FOLLOW UP OTHER Diagnostic Results Date Type Test Units Lower Limit Upper Limit Result Flag Comments Status Ordered By Specimen Source Lab Address 08/08 WBC 10 4.5 10.5 6.7 [facility]AL [facility] RBC 10 4.7 6.1 5.22 FINAL [facility]in [facility] 08/08 HGB g/dL 14.0 17.0 13.4 Low FINAL Dustin [facility] 08/08 HCT % 42.0 51.0 42.2 FINAL [facility] [place] 08/08 MCV fL 80.0 95.0 80.8 FINAL [facility] [place] 08/08 MCH pg 26.0 32.0 25.7 Low FINAL [facility] [place] 08/08 MCHC g/dL 33.0 37.0 31.8 Low FINAL Dustin [facility] 08/08 RDW-S D fL 35.1 43.9 44.3 High FINAL Dustin [facility] 08/08 RDW-C V, % % 11.6 14.4 15.0 High FINAL [facility] [place] 08/08 PLT 10 140.0 400.0 453 High FINAL [facility] [place] 08/08 MPV fL 7.4 10.4 9.0 FINAL Dustin [facility] 08/08 Gran % % 34.0 71.1 71.7 High FINAL [place] 08/08 LY % % 19.3 53.1 17.8 Low FINAL [place] 08/08 MO % % 4.7 12.5 8.6 FINAL [facility] 08/08 Gran # 10 1.56 6.13 4.83 FINAL [facility] 08/08 LY # 10 1.2 3.7 1.2 FINAL [place] 08/08 MO # 10 0.2 0.8 0.6 FINAL [place] 08/08 EO % % 0.7 7.0 1.2 FINAL [place] 08/08 BA % % 0.1 1.2 0.4 FINAL Dustin [place] 08/08 IG % % 0.0 5.0 0.3 FINAL Dustin Russell [place] 08/08 EO # 10 0.0 0.5 0.1 FINAL [place] 08/08 BA # 10 0.01 0.08 0.03 FINAL [place] 08/08 IG # 10 0.0 0.5 [...] Nurse Note Print Location: Unknown Date/Time Printed: 11/14/2024 15:27 ([facility]) Patient: Dustin Rogers Sex: Male : 1950 [...] Code(s): BLOOD COUNT AUTOMATED DIFFERENTIAL WBC COUNT (92845) Entered By Bryan Zhao; Incident to Dustin [...] Ambulatory, Selected Billing Code(s): PHLEBOTOMY THERAPEUTIC SEPARATE PROCEDURE(03120) Entered By Bryan Zhao; Incident to Dustin Russell MD
--- OUTSIDE RECORDS SUMMARY | 2024-11-14 18:27 | XMS_ITS | CCD ---
Author Name Interface, [id number] lity Address [address] [place] [address] Organization [facility] Address [address] [place], [place] [address] Care Team Providers Care Financial Adviser Name Role Phone Dustin Russell MD Unavailable Unavailable Allergies and Adverse Reactions Reason for Visit Medications Problems Procedures Social History
--- OUTSIDE RECORDS SUMMARY | 2024-11-14 18:27 | XMS_ITS | Clinical Summary ---
Author Organization [facility] Address [address] [place] [address] Care Team Providers Care Home Stager Name Role Phone None, Provider BOILER OR ENGINE OPERATOR Primary Care Provider Unavaila ble Allergies Active Allergy Reactions Criticality Noted Date [...] Advance Directives For more information, please contact: [phone] * Full Code (Latest Code Status on File) Date Activated Date Inactivated Comments 05/03/2010 17:27 05/04/2010 13:42 Care Teams Home Stager Relationship Specialty Start Date End Date None, Provider, BOILER OR ENGINE OPERATOR PCP - General 05/03/10
--- OUTSIDE RECORDS SUMMARY | 2024-11-14 18:27 | XMS_ITS | Data Portability ---
Author Organization [place] - [facility], Allergy Address [address] [address] Care Team Providers Care Chart Calculator Name Role Phone SARMAD ANABEL Primary Care Provider [phone] Assessment Encounter Date Assessment Date Assessment LastModified [...] Recorded Time Impacted cerumen in left ear [id number] Active 2019 Impacted cerumen, left ear; Note: Date Diagnosed : 03/26/2019 1:38 PM (H61.22) Not Available [facility] 4 02:56:46 Thyroidit is 50058971 Active 2019 Thyroidit is, unspecifi ed; Note: Date Diagnosed : 03/26/2019 1:37 PM (E06.9) Not Available [facility] 4 02:56:47 Itching of skin 457499225 Active 2019 Other pruritus; Note: Date Diagnosed : 09/23/2019 4:59 PM (L29.8) Not Available [facility] 4 02:56:45 Tinnitus of left ear 20995530370 06 Active 2019 Tinnitus, left ear; Note: Date Diagnosed : 09/23/2019 4:18 PM (H93.12) Not Available [facility] 4 02:56:44 Bilateral tinnitus 30018755868 02 Active 2020 Tinnitus, bilateral ; Note: Date Diagnosed : 06/24/2020 4:16 PM (H93.13) Not Available [facility] 4 02:56:47 Abrasion of skin of left ear 52569479636 508959 Active 2020 Abrasion of left ear, initial encounter ; Note: Date Diagnosed : 06/29/2020 4:02 PM (S00.412A ) Not Available [facility] 4 02:56:44 Benign paroxysma l positiona l vertigo 289594765 Active 2020 Benign paroxysma l vertigo, right ear; Note: Date Diagnosed : 06/29/2020 4:03 PM (H81.11) Not Available [facility] 4 02:56:45 Sensorine ural hearing loss 72207062 Active 2022 Sensorine ural hearing loss, unilatera l, left ear, with unrestric tho hearing on the contralat eral side; Note: Date Diagnosed : 03/07/2022 11:45 AM (H90.42) Not Available [facility] 4 02:56:46 Sensorine ural hearing loss of bilateral ears 301787581 Active 2024 NEHA MCDANIEL MD [address] [place] [address],[place] [address], [place], [address] , [place] - [facility] 5 11:48:51 Polycythe noé vera (clinical ) 219115261 Active 2024 NEHA MCDANIEL MD [address] [place] [address],[place] [address], [place], [address] , [place] - [facility] 11:49:28 Problem Notes None recorded. Procedures Surgical History Date Name Laterality Status Provider Name and Address Organization Details Recorded Time 03/01/2024 Air & Speech Audio with Tymps - 30785, 53071 & 14409 completed DENNIS MOLINA, AUD [address] [facility], [place], [address], [facility] - [facility] 03/01/2024 11:13:43 Imaging Results None recorded. Procedure Notes None recorded. Medical Equipment None Reported. Medications Name Sig Start Date Stop Date Status Note LastModified by Organization Details LastModified Time hydroxyur ea 500 mg capsule TAKE 1 CAPSULE BY MOUTH EVERY OTHER DAY active Not Available Not Available No t Available prednison e 10 mg tablet by mouth 03/06 completed Medicati on ID: [id number] Britta booker By Name: Ja Gaines nd [...] 24 hr 03/06 completed Medicati on ID: [id number] B rand Name: metoprol ol succinat e Send Method: E-Prescr ibed Sub s Allowed: subs OK Medic ationGen ericName : metoprol ol succinat e Not Available Not Available Not Available amlodipin e 5 mg tablet TAKE 1 TABLET BY MOUTH EVERY DAY active Not Available Not Available No t Available aspirin 81 mg tablet,de layed release active Medicati on ID: [id number] B rand Name: aspirin Send Method: E-Prescr ibed Sub s Allowed: subs OK Medic ationGen ericName : aspirin Not Available Not Available Not Available ofloxacin 0.3 % ear drops Instill 4 drop twice a day 2020 active Medicati on ID: [id number] D uration Value: 10 Prescri bed By [...] mg tablet 03/06 completed Medicati on ID: [id number] B rand Name: losartan Send Method: E-Prescr [...] to skin 2019 active Medicati on ID: [id number] D uration Value: 7 Prescri bed By Name: Ja Gaines nd Name: fluocino loncosme Sen d Method: E-Prescr ibed Sub s Allowed: subs OK Speci al Instruct ion: 3 drops BID for 7 days Med icationG enericNa me: fluocino lone Not Available Not Available Not Available Pepcid 20 mg tablet Take 1 tablet by mouth twice a day 03/06 completed Medicati on ID: [id number] B rand Name: Pepcid S end Method: [...] Diagnosis SNOMED-CT Code Diagnosis ICD10 Code Diagnosis IMO Codes Diagnosis Note [id number] NEHA MCDANIEL MD [facility] [address] [address] 03/01/2024 10:57:39 03/01/2024 11:51:31 Sensorineural hearing loss of bilateral ears [id number] H90.3 Bilateral tinnitus 58344 64381 102 H93.13 Polycythem ia vera (clinical) 552455413 D45 97144 LYNDA BARGER [facility] [address] [address] 03/01/2024 11:13:12 03/04/2024 07:40:30 Bilateral tinnitus 5406630801 102 H93.13 Right Ear:Normal hearing through 6K Hz sloping to a mild SNHL with excellent speech discrimina tion.Type A tympanogra m.Left Ear:Normal hearing through 6K Hz sloping to a mild SNHL with excellent speech discrimina tion.Type A tympanogra m. Sensorineu ral hearing loss 99516391 H90.42 Health Concerns Section Related Observation LastModified by Organization Detai ls LastModified Time None Recorded Concern Status LastModified by Organization Details LastModified Time None Recorded Advance Directives Directive None Recorded Payers Insurance Date Sequence Insurance Name Policy Number Policy Cote Covered Member ID Cote Member ID Guarantor Name 03/01/2024 2 [facility] [id number] Dustin Rogers [id number] Dustin Rogers 02/27/2024 1 [place]ICARE [place]: [facility] Dustin Rogers [id number] Dustin Rogers Notes Date Note Type Note Provider Name and Address Organization Details Recorded Time 03/01/2024 text/html Overall feels things are stableDealing with PCV--fatigueGetting phlebotomy every month or so NEHA ZELAYA MD [address] [place] [address], [place], [address], [facility] - [facility] 03/01/2024 11:49:47
--- OUTSIDE RECORDS SUMMARY | 2024-11-14 18:27 | XMS_ITS | Encounter Summary ---
Author Organization Formerly [facility] Address [address] [employer] [facility] [address] [place] [address] Phone Care Team Providers Care Desk Pen Set Assembler Name Role Phone Byron Aguilar MD Primary Care Provid er Encounter Details Date Type Department Care Team (Latest Contact Info) Description 02/26/2019 Transcribe Orders [facility] [address] [place] [address] [place] [address] Byron Aguilar MD [address] [place] [address] Hypertension, unspecified type (Primary Dx); Hyperlipidemia, unspecified hyperlipidemia type; Reflux esophagitis Social History Tobacco Use Types Packs/Day Years Used Date Smoking Tobacco: Never Smokeless Tobacco: Never Alcohol Use Standard Drinks/Week Comments Yes 0 (1 standard drink = 0.6 oz pur e alcohol) occasional Sex and Gender Information Value Date Recorded Sex Assigned at Male 11/16/2017 2:06 PM EDT Legal Sex Male 7:53 PM EST Gender Identity Male 11/16/2017 2:06 PM EDT Sexual Orientation Straight 11/16/2017 2: 06 PM EDT documented as of this encounter Plan of Treatment Not on file documented as of this encounter Results * Urine culture (02/26/2019 11:10 AM EST) Special Requests None 02/26/2019 11:11 AM EST [facility] GRAM STAIN NO ORGANISMS SEEN 02/27/2019 9:58 AM EST [facility] Urine Culture <10,000 colony forming units per mL 02/27/2019 9:56 AM EST [facility] Urine (Urine) 02/26/2019 11: 10 AM EST 02/26/2019 11:12 AM EST Comment:CLEAN CATCH us Byron Aguilar MD MICROBIOLOGY - GENER AL ORDERABLES Final Result [address] [address] * (ABNORMAL) URINALYSIS WITH SEDIMENT (02/26/2019 11:10 AM EST) WBC NONE SEEN NONE SEEN /hpf [facility] RBC 0-2(A) NONE SEEN /hpf [facility] URINE EPITHELIAL 0-4(A) NONE SEEN [facility] MUCUS NONE SEEN NONE SEEN /hpf [facility] BACTERIA Trace(A) NONE SEEN /hpf [facility] COLOR Yellow Yellow [facility] CLARITY Clear [facility] GLUCOSE Negative Negative [facility] BILI Negative Negative [facility] KETONES Negative Negative [facility] SPECIFIC GRAVITY 1.010 1.005 - 1.030 [facility] BLOOD Negative Negative [facility] PH 7.0 5.0 - 8.0 [facility] Protein-UA Negative Negative [facility] NITRITE Negative Negative [facility] Leukocyte esterase, ur Negative Negative [facility] Urine (Urine) 02/26/2019 11: 10 AM EST 02/26/2019 11:12 AM EST us Byron Aguilar MD URINE ORDERABLES Fin al Result [address] [address] * Hemoglobin A1c (02/26/2019 11:10 AM EST) HEMOGLOBIN A1C 5.8 4.3 - 5.8 % [facility] Blood 02/26/2019 11:1 0 AM EST 02/26/2019 11:12 AM EST us Byron Aguilar MD LAB BLOOD ORDERABLES Final Result Performing Organization Address [facility]/ZIP Co de Phone Number [address] [address] * (ABNORMAL) Basic metabolic panel (02/26/2019 11:10 AM EST) SODIUM 139 133 - 146 mmol/L [facility] CHLORIDE 100 96 - 108 mmol/L [facility] POTASSIUM 4.4 3.3 - 5.1 mmol/L [facility] CO2 26 21 - 35 mmol/L [facility] BUN 19 6 - 19 mg/dL [facility] CREATININE 0.90 0.5 - 1.5 mg/dL [facility] GLUCOSE 119(H) 70 - 99 mg/dL [facility] CALCIUM 9.3 8.4 - 10.3 mg/dL [facility] EGFR 87 >59 mL/min/1.7 3m2 [facility] Comment:If patient is black, multiply result by 1.159. Estimated glomerular filtration rate calculated using the CKD-EPI equation. ANION GAP 17 10 - 20 mmol/L [facility] Blood 02/26/2019 11:1 0 AM EST 02/26/2019 11:12 AM EST us Byron Aguilar MD LAB BLOOD ORDERABLES Final Result Performing Organization Address [facility] Co de Phone Number [address] [address] * (ABNORMAL) Lipid panel (02/26/2019 11:10 AM EST) HDL 33 mg/dL [facility] Comment: Interpretation <40 mg/dL: Low HDL cholesterol (major risk factor for CHD) Greater than or equal to 60 mg/dL: High HDL cholesterol ( negative risk factor for CHD) HDL - cholesterol is affected by a number of factors, e.g. smoking, excerise, hormones, sex and age. CHOLESTEROL 222 0 - 240 mg/dL [facility] TRIGLYCERIDES 355(H) 30 - 160 mg/dL [facility] LDL 118 50 - 129 mg/dL [facility] Comment: LDL levels in terms of risk for coronary heart disease: <100 mg/dL: Optimal 100-129 mg/dL: Near or above optimal 130-159 mg/dL: Borderline high 160-189 mg/dL: High >190 mg/dL: Very High CARDIAC RISK RATIO 6.7(H) 3.4 - 5.0 C [facility] Blood 02/26/2019 11:1 0 AM EST 02/26/2019 11:12 AM EST us Byron Aguilar MD LAB BLOOD ORDERABLES Final Result Performing Organization Address City/State/[facility] Co de Phone Number [address] [address] documented in this encounter Visit Diagnoses Diagnosis Hypertension, unspecified type- Primary Hyperlipidemia, unspecified hyperlipidemia type Reflux esophagitis documented in this encounter Care Teams Desk Pen Set Assembler Relationship Specialty Start Date End Date Byron Aguilar MD [address] [place] [address] PCP - General Internal Medicine 10/03/13 documented as of this encounter Additional Source Comments The information contained in this document represents components of the legal health record. It is not the complete legal health record.[facility]
== END 2024-11-14 13:57 | disposition home or self-care (01) ==
LOC: HO.BBR 13:56
PROVIDERS: PCP Family Medicine; Visit Provider Internal Medicine Hematology
DX: D45 Polycythemia vera (principal)
CPT/HCPCS: 85014; 85018; 99195

== ENCOUNTER 2025-01-03 11:51 | Outpatient (REF) | payer MEDICARE, OTHER, SELFPAY ==
--- OUTSIDE RECORDS SUMMARY | 2025-01-03 17:54 | XMS_ITS ---
Author Name Interface, [id number] lity Address [address] [place] [address] Organization [facility] Address [facility] [place] [address] Support Name Relationship Address Phone Linda Suarez Sister Unknown Unavailable Allergies and Adverse Reactions Medication/Group Name Reaction Severity Date No known allergies Plan Date Type Value 08/11/2023 APPOINTMENT FOLLOW UP OTHER Reason for Visit FOLLOW UP OTHER Encounters Date Name 08/11/2023 Thrombocytosis (diso rder) Medications Date Name Route Dose Frequency Instructions Start Date End Date Status Fill Status Indication 06/01 Docosah exanoic Acid-Ei cosapen tanoic Acid Oral 120 mg-180 mg PO 1Qd active 06/01 Temazep am Oral PO PRN active 05/01 Hydroxy urea Oral PO QOD active 06/01 Amlodip ine Oral 1Qd active 06/01 Choleca lcifero l Oral PO 1Qd active 05/01 hydroxy urea 500 MG Oral [...]
--- OUTSIDE RECORDS SUMMARY | 2025-01-03 17:54 | XMS_ITS ---
Author Name Interface, [id number] lity Address [address] [place] [address] Organization [facility] Address [facility] [place] [address] Support Name Relationship Address Phone Linda Suarez Unknown Unavailable Allergies and Adverse Reactions Medication/Group Name Reaction Severity Date No known allergies Plan Date Type Value 08/11/2023 APPOINTMENT FOLLOW UP OTHER 08/09/2023 APPOINTMENT PHLEBOTOMY Reason for Visit FOLLOW UP OTHER Diagnostic Results Date Type Test Units Lower Limit Upper Limit Result Flag Comments Status Ordered By Specimen Source Lab Address 08/08 WBC 10 4.5 10.5 6.7 FINAL Dustin [facility] 08/08 RBC 10 4.7 6.1 5.22 FINAL Dustin [facility] 08/08 HGB g/dL 14.0 17.0 13.4 Low [facility] HCT % 42.0 51.0 42.2 FINAL [facility] 08/08 MCV fL 80.0 95.0 80.8 FINAL Dustin [facility] [place] 08/08 MCH pg 26.0 32.0 25.7 Low FINAL Dustin [facility] 08/08 MCHC g/dL 33.0 37.0 31.8 Low FINAL [facility]/08 RDW-S D fL 35.1 43.9 44.3 High FINAL [facility] 08/08 RDW-C V, % % 11.6 14.4 15.0 High FINAL [facility] 08/08 PLT 10 140.0 400.0 453 High FINAL Dustin [facility] 08/08 MPV fL 7.4 10.4 9.0 FINAL Dustin [place] 08/08 Gran % % 34.0 71.1 71.7 High FINAL Dustin [place] 08/08 LY % % 19.3 53.1 17.8 Low FINAL [place] 08/08 MO % % 4.7 12.5 8.6 FINAL [place] 08/08 Gran # 10 1.56 6.13 4.83 FINAL [place] 08/08 LY # 10 1.2 3.7 1.2 FINAL Dustin [place] 08/08 MO # 10 0.2 0.8 [...] # 10 0.0 0.5 0.0 FINAL [place] Medications Date Name Route Dose Frequency [...] Nurse Note Print Location: Unknown Date/Time Printed: 01/03/2025 14:54 ([facility]) Patient: Dustin Rogers Sex: Male : 1950 [...] Code(s): BLOOD COUNT AUTOMATED DIFFERENTIAL WBC COUNT (61869) Entered By Bryan Zhao; Incident to Dustin [...] Ambulatory, Selected Billing Code(s): PHLEBOTOMY THERAPEUTIC SEPARATE PROCEDURE(62185) Entered By Bryan Zhao; Incident to Dustin Russell MD
--- OUTSIDE RECORDS SUMMARY | 2025-01-03 17:55 | XMS_ITS ---
Author Name Interface, [id number] lity Address [address] [place] [address] Organization [facility] Address [facility] [place] [address] Support Name Relationship Address Phone Linda Suarez [...]
--- OUTSIDE RECORDS SUMMARY | 2025-01-03 17:55 | XMS_ITS ---
Author Name Interface, [id number] lity Address [address] [place] [address] Organization [facility] Address [facility] [place] [address] Support Name Relationship Address Phone Linda Suarez [...]
--- OUTSIDE RECORDS SUMMARY | 2025-01-03 17:55 | XMS_ITS | CCD ---
Author Name Interface, [id number] lity Address [address] [place] [address] Organization [facility] Address [facility] [place] [address] Care Team Providers Care Moshgiach Name Role Phone Dustin Russell MD Unavailable Unavailable Allergies and Adverse Reactions Medication/Group Name Reaction Severity Date No known allergies Reason for Visit FOLLOW UP OTHER Medications Date Name Route Dose Frequency Instructions Start Date End Date Status Fill Status Indication 05/01 Hydroxyure a Oral PO QOD active 06/01 Amlodipine Oral 1Qd active 06/01 Docosahexa noic Acid-Eicos apentanoic Acid Oral 120 mg-180 mg PO 1Qd active 06/01 Temazepam Oral PO PRN active 06/01 Cholecalci ferol Oral PO 1Qd active Problems Diagnosis Status Date of Diagnosis Resolution Date Essential thrombocythemia (disorder) Active Thrombocytosis (disorder) Active Procedures Date Category Name Instructions Status 01/18/2024 Physician Order Therapeutic phle botomy (procedure) Remove 250cc's of blood. Hold if Hct < 42% Ordered 02/15/2024 Physician Order Therapeutic phle botomy (procedure) Remove 250cc's of blood. Hold if Hct < 42% Ordered 03/14/2024 Physician Order Therapeutic phle botomy (procedure) Remove 250cc's of blood. Hold if Hct < 42% Ordered 04/15/2024 Physician Order RTC labs (1) CBC and diff with each phlebotomy. (2) Add CBC and diff, CMP, LDH Q3 mo. Ordered 04/15/2024 Physician Order RTC MD or whenever convenient for pt as he goes back and forth to [place]. Ordered 04/15/2024 Physician Order Phlebotomy (procedure) Wh en returns from [facility] in 2024: Plan phlbs as freq as Q4 weeks/Monthly. Until goes back to [place] (pt spends 8 mo in [place] and 4 moo here)Pt prefers 250 ml instead of 500 ml. Hold if Hct < 42%. Ordered Social History Date Name Value 06/02/2021 Sex Male Gender Identity Identifies as jonh epps
--- OUTSIDE RECORDS SUMMARY | 2025-01-03 17:56 | XMS_ITS ---
Author Name Interface, [id number] lity Address [address] [place] [address] Organization [facility] Address [facility] [place] [address] Support Name Relationship Address Phone Linda Suarez [...] WBC 10 4.5 10.5 6.7 FINAL Dustin [facility] 08/08 RBC 10 4.7 6.1 5.22 FINAL Dustin [facility] 08/08 HGB g/dL 14.0 17.0 13.4 Low FINAL [facility] [place] 08/08 HCT % 42.0 51.0 42.2 FINAL [facility] [place] 08/08 MCV fL 80.0 95.0 80.8 FINAL Dustin [facility] [place] 08/08 MCH pg 26.0 32.0 25.7 Low FINAL Dustin [facility] 08/08 MCHC g/dL 33.0 37.0 31.8 Low FINAL [facility] [place] 08/08 RDW-S D fL 35.1 43.9 44.3 High FINAL [facility] [place] 08/08 RDW-C V, % % 11.6 14.4 15.0 High FINAL [facility] [place] 08/08 PLT 10 140.0 400.0 453 High FINAL Dustin [facility] 08/08 MPV fL 7.4 10.4 9.0 [...] Note Print Location: Unknown Date/Time Printed: 01/03/2025 14:55 ([facility]) Patient: Dustin Rogers Sex: Male [...] Code(s): BLOOD COUNT AUTOMATED DIFFERENTIAL WBC COUNT (33513) Entered By Bryan Zhao; Incident to Dustin [...] Ambulatory, Selected Billing Code(s): PHLEBOTOMY THERAPEUTIC SEPARATE PROCEDURE(16351) Entered By Bryan Zhao; Incident to Dustin Russell MD
--- OUTSIDE RECORDS SUMMARY | 2025-01-03 17:56 | XMS_ITS | Data Portability ---
Author Organization [place] - [facility], Allergy Address [address] [address] Care Team Providers Care Hogshead Liner Name Role Phone SARMAD ANABEL Primary Care Provider [phone] Assessment Encounter Date Assessment Date Assessment LastModified [...] Recorded Time Impacted cerumen in left ear [id number] Active 2019 Impacted cerumen, left ear; Note: Date Diagnosed : 03/26/2019 1:38 PM (H61.22) Not Available [facility] 4 02:56:46 Thyroidit is 42847716 Active 2019 Thyroidit is, unspecifi ed; Note: Date Diagnosed : 03/26/2019 1:37 PM (E06.9) Not Available [facility] 4 02:56:47 Itching of skin 698372251 Active 2019 Other pruritus; Note: Date Diagnosed : 09/23/2019 4:59 PM (L29.8) Not Available [facility] 4 02:56:45 Tinnitus of left ear 01202154717 06 Active 2019 Tinnitus, left ear; Note: Date Diagnosed : 09/23/2019 4:18 PM (H93.12) Not Available [facility] 4 02:56:44 Bilateral tinnitus 19670610554 02 Active 2020 Tinnitus, bilateral ; Note: Date Diagnosed : 06/24/2020 4:16 PM (H93.13) Not Available [facility] 4 02:56:47 Abrasion of skin of left ear 56159436728 724333 Active 2020 Abrasion of left ear, initial encounter ; Note: Date Diagnosed : 06/29/2020 4:02 PM (S00.412A ) Not Available [facility] 4 02:56:44 Benign paroxysma l positiona l vertigo 809080555 Active 2020 Benign paroxysma l vertigo, right ear; Note: Date Diagnosed : 06/29/2020 4:03 PM (H81.11) Not Available [facility] 4 02:56:45 Sensorine ural hearing loss 39704322 Active 2022 Sensorine ural hearing loss, unilatera l, left ear, with unrestric tho hearing on the contralat eral side; Note: Date Diagnosed : 03/07/2022 11:45 AM (H90.42) Not Available [facility] 4 02:56:46 Sensorine ural hearing loss of bilateral ears 954006027 Active 2024 NEHA MCDANIEL MD [address] [place] [address],[place] [address], [place], [address] , [place] - [facility] 5 11:48:51 Polycythe noé vera (clinical ) 328628972 Active 2024 NEHA MCDANIEL MD [address] [place] [address],[place] [address], [place], [address] , [place] [facility] 11:49:28 Problem Notes None recorded. Procedures Surgical History Date Name Laterality Status Provider Name and Address Organization Details Recorded Time 03/01/2024 Air & Speech Audio with Tymps - 63744, 25660 & 95672 completed DENNIS MOLINA, AUD [address] [facility], [place], [address], [facility] - [facility] 03/01/2024 11:13:43 Imaging Results None recorded. Procedure Notes None recorded. Medical Equipment None Reported. Medications Name Sig Start Date Stop Date Status Note LastModified by Organization Details LastModified Time hydroxyur ea 500 mg capsule TAKE 1 CAPSULE BY MOUTH EVERY OTHER DAY active Not Available Not Available No t Available prednison e 10 mg tablet by mouth 03/06 completed Medicati on ID: [id number] Britta booker By Name: Ja Gaines nd [...] 24 hr 03/06 completed Medicati on ID: [id number] B rand Name: metoprol ol succinat e Send Method: E-Prescr ibed Sub s Allowed: subs OK Medic ationGen ericName : metoprol ol succinat e Not Available Not Available Not Available amlodipin e 5 mg tablet TAKE 1 TABLET BY MOUTH EVERY DAY active Not Available Not Available No t Available aspirin 81 mg tablet,de layed release active Medicati on ID: [id number] B rand Name: aspirin Send Method: E-Prescr ibed Sub s Allowed: subs OK Medic ationGen ericName : aspirin Not Available Not Available Not Available ofloxacin 0.3 % ear drops Instill 4 drop twice a day 2020 active Medicati on ID: [id number] D uration Value: 10 Prescri bed By [...] mg tablet 03/06 completed Medicati on ID: [id number] B rand Name: losartan Send Method: E-Prescr [...] to skin 2019 active Medicati on ID: [id number] D uration Value: 7 Prescri bed By Name: Ja Gaines nd Name: fluocino loncosme Sen d Method: E-Prescr ibed Sub s Allowed: subs OK Speci al Instruct ion: 3 drops BID for 7 days Med icationG enericNa me: fluocino lone Not Available Not Available Not Available Pepcid 20 mg tablet Take 1 tablet by mouth twice a day 03/06 completed Medicati on ID: [id number] B rand Name: Pepcid S end Method: [...] ICD10 Code Diagnosis IMO Codes Diagnosis Note [id number] NEHA MCDANIEL MD [facility] [address] [address] 03/01/2024 10:57:39 03/01/2024 11:51:31 Sensorineural hearing loss of bilateral ears 031143675 H90.3 Bilateral tinnitus 92368 74742 102 H93.13 Polycythem ia vera (clinical) 770481770 D45 [id number] LYNDA BARGER [facility] [address] [address] 03/01/2024 11:13:12 03/04/2024 07:40:30 Bilateral tinnitus 2227596993 102 H93.13 Right Ear:Normal hearing through 6K Hz sloping to a mild SNHL with excellent speech discrimina tion.Type A tympanogra m.Left Ear:Normal hearing through 6K Hz sloping to a mild SNHL with excellent speech discrimina tion.Type A tympanogra m. Sensorineu ral hearing loss 32618350 H90.42 Health Concerns Section Related Observation LastModified by Organization Detai ls LastModified Time None Recorded Concern Status LastModified by Organization Details LastModified Time None Recorded Advance Directives Directive None Recorded Payers Insurance Date Sequence Insurance Name Policy Number Policy Cote Covered Member ID Cote Member ID Guarantor Name 03/01/2024 2 [facility] [id number] Dustin Saleema [id number] Dustin Rogers 02/27/2024 1 MEDICARE [place]: [facility] Dustin Saleema [id number] Dustin Rogers Notes Date Note Type Note Provider Name and Address Organization Details Recorded Time 03/01/2024 text/html Overall feels things are stableDealing with PCV--fatigueGetting phlebotomy every month or so NEHA ZELAYA MD [address] [place] [address], [place], [address], [place] - [facility] 03/01/2024 11:49:47
--- OUTSIDE RECORDS SUMMARY | 2025-01-03 17:56 | XMS_ITS ---
Author Name Interface, [id number] lity Address [address] [place] [address] Organization [facility] Address [facility]5 [place] [address] Support Name Relationship Address Phone Linda Suarez [...]
--- OUTSIDE RECORDS SUMMARY | 2025-01-03 17:56 | XMS_ITS ---
Author Name Interface, [id number] lity Address [address] [place] [address] Organization [facility] Address [facility] [place] [address] Support Name Relationship Address Phone Linda Suarez [...] WBC 10 4.5 10.5 6.7 FINAL Dustin [facility] 08/08 RBC 10 4.7 6.1 5.22 FINAL Dustin [facility] 08/08 HGB g/dL 14.0 17.0 13.4 Low FINAL [facility] [place] 08/[facility] HCT % 42.0 51.0 42.2 FINAL Dustin [facility] [place] 08/08 MCV fL 80.0 95.0 80.8 FINAL Dustin Russell [place] 08/08 MCH pg 26.0 32.0 25.7 Low FINAL Dustin [facility] 08/08 MCHC g/dL 33.0 37.0 31.8 Low FINAL Dust[facility] [place] 08/08 RDW-S D fL 35.1 43.9 44.3 High FINAL Dustin [facility] [place] 08/08 RDW-C V, % % 11.6 14.4 15.0 High FINAL Dustin [facility] [place] 08/08 PLT 10 140.0 400.0 453 High FINAL Dustin [facility] 08/08 MPV fL 7.4 10.4 9.0 [...] Note Print Location: Unknown Date/Time Printed: 01/03/2025 14:56 ([facility]) Patient: Dustin Rogers Sex: Male : [...] Code(s): BLOOD COUNT AUTOMATED DIFFERENTIAL WBC COUNT (97834) Entered By Bryan Zhao; Incident to Dustin [...] Ambulatory, Selected Billing Code(s): PHLEBOTOMY THERAPEUTIC SEPARATE PROCEDURE(94117) Entered By Bryan Zhao; Incident to Dustin Russell MD
--- OUTSIDE RECORDS SUMMARY | 2025-01-03 17:56 | XMS_ITS ---
Author Name Interface, [id number] lity Address [address] [place] [address] Organization [facility] Address [facility]5 [place] [address] Support Name Relationship Address Phone Linda Suarez [...]
--- OUTSIDE RECORDS SUMMARY | 2025-01-03 17:56 | XMS_ITS ---
Author Name Interface, [id number] lity Address [address] [place] [address] Organization [facility] Address [facility]5 [place] [address] Support Name Relationship Address Phone Linda Suarez [...] g/dL 14.0 17.0 13.4 Low FINAL [facility] [facility] HCT % 42.0 51.0 42.2 FINAL [facility] [place] 08/08 MCV fL 80.0 95.0 80.8 FINAL Dustin [facility] [place] 08/08 MCH pg 26.0 32.0 25.7 Low FINAL Dustin [facility] 08/08 MCHC g/dL 33.0 37.0 31.8 Low FINAL [facility] [place] 08/08 RDW-S D fL 35.1 43.9 44.3 High FINAL Dust[facility] [place] 08/08 RDW-C V, % % 11.6 14.4 15.0 High FINAL Dust[facility] [place] 08/08 PLT 10 140.0 400.0 453 High [...] Print Location: Unknown Date/Time Printed: 01/03/2025 14:56 ([facility]) Patient: Dustin Rogers Sex: Male : [...] Code(s): BLOOD COUNT AUTOMATED DIFFERENTIAL WBC COUNT (36452) Entered By Bryan Zhao; Incident to Dustin [...] Ambulatory, Selected Billing Code(s): PHLEBOTOMY THERAPEUTIC SEPARATE PROCEDURE(28772) Entered By Bryan Zhao; Incident to Dustin Russell MD
--- OUTSIDE RECORDS SUMMARY | 2025-01-03 17:56 | XMS_ITS ---
Author Name Interface, [id number] lity Address [address] [place] [address] Organization [facility] Address [facility]5 [place] [address] Support Name Relationship Address Phone Linda Suarez [...] WBC 10 4.5 10.5 6.7 FINAL Dustin [facility] 08/08 RBC 10 4.7 6.1 5.22 FINAL Dustin [facility] 08/08 HGB g/dL 14.0 17.0 13.4 Low FINAL [facility] [place] 08/08 HCT % 42.0 51.0 42.2 FINAL Dust[facility] [place] 08/08 MCV fL 80.0 95.0 80.8 FINAL Dustin [place] 08/08 MCH pg 26.0 32.0 25.7 Low FINAL Dustin [facility] 08/08 MCHC g/dL 33.0 37.0 31.8 Low FINAL Dust[facility] [place] 08/08 RDW-S D fL 35.1 43.9 44.3 High FINAL [facility]us[facility] [place] 08/08 RDW-C V, % % 11.6 14.4 15.0 High FINAL Dustin [facility] [place] 08/08 PLT 10 140.0 400.0 453 High FINAL Dustin [facility] 08/08 MPV fL 7.4 10.4 9.0 [...] Print Location: Unknown Date/Time Printed: 01/03/2025 14:55 ([facility]) Patient: Dustin Rogers Sex: Male : [...] Code(s): BLOOD COUNT AUTOMATED DIFFERENTIAL WBC COUNT (44673) Entered By Bryan Zhao; Incident to Dustin [...] Ambulatory, Selected Billing Code(s): PHLEBOTOMY THERAPEUTIC SEPARATE PROCEDURE(44835) Entered By Bryan Zhao; Incident to Dustin Russell MD
--- OUTSIDE RECORDS SUMMARY | 2025-01-03 17:56 | XMS_ITS ---
Author Name Interface, [id number] lity Address [address] [place] [address] Organization [facility] Address [facility]5 [place] [address] Support Name Relationship Address Phone Linda Suarez [...] WBC 10 4.5 10.5 6.7 FINAL Dustin [facility] 08/08 RBC 10 4.7 6.1 5.22 FINAL Dustin [facility] 08/08 HGB g/dL 14.0 17.0 13.4 Low FINAL [facility] [place] 08/08 HCT % 42.0 51.0 42.2 FINAL [facility] [place] 08/08 MCV fL 80.0 95.0 80.8 FINAL Dustin Russell [place] 08/08 MCH pg 26.0 32.0 25.7 Low FINAL Dustin [facility] 08/08 MCHC g/dL 33.0 37.0 31.8 Low FINAL [facility] [place] 08/08 RDW-S D fL 35.1 43.9 44.3 High FINAL Dust[facility] [place] 08/08 RDW-C V, % % 11.6 14.4 15.0 High FINAL Dust[facility] [place] 08/08 PLT 10 140.0 400.0 453 High FINAL Dustin [facility] 08/08 MPV fL 7.4 10.4 9.0 FINAL [...] Print Location: Unknown Date/Time Printed: 01/03/2025 14:56 ([facility]) Patient: Dustin Rogers Sex: Male [...] Code(s): BLOOD COUNT AUTOMATED DIFFERENTIAL WBC COUNT (84551) Entered By Bryan Zhao; Incident to Dustin [...] Ambulatory, Selected Billing Code(s): PHLEBOTOMY THERAPEUTIC SEPARATE PROCEDURE(80499) Entered By Bryan Zhao; Incident to Dustin Russell MD
--- OUTSIDE RECORDS SUMMARY | 2025-01-03 17:56 | XMS_ITS ---
Author Name Interface, [id number] lity Address [address] [place] [address] Organization [facility] Address [facility]5 [place] [address] Support Name Relationship Address Phone Linda Suarez [...]
--- OUTSIDE RECORDS SUMMARY | 2025-01-03 17:57 | XMS_ITS ---
Author Name Interface, [id number] lity Address [address] [place] [address] Organization [facility] Address [facility]5 [place] [address] Support Name Relationship Address Phone Linda Suarez [...] WBC 10 4.5 10.5 6.7 FINAL Dustin [facility] 08/08 RBC 10 4.7 6.1 5.22 FINAL Dustin [facility] 08/08 HGB g/dL 14.0 17.0 13.4 Low FINAL [facility] [place] 08/08 HCT % 42.0 51.0 42.2 FINAL Dust[facility] [place] 08/08 MCV fL 80.0 95.0 80.8 FINAL Dustin [place] 08/08 MCH pg 26.0 32.0 25.7 Low FINAL Dustin [facility] 08/08 MCHC g/dL 33.0 37.0 31.8 Low FINAL [facility] [place] 08/08 RDW-S D fL 35.1 43.9 44.3 High FINAL Dust[facility] [place] 08/08 RDW-C V, % % 11.6 14.4 15.0 High FINAL Dust[facility] [place] 08/08 PLT 10 140.0 400.0 453 High FINAL Dustin [facility] 08/08 MPV fL 7.4 10.4 9.0 [...] Print Location: Unknown Date/Time Printed: 01/03/2025 14:56 ([facility]) Patient: Dustin Rogers Sex: Male : 1950 [...] Code(s): BLOOD COUNT AUTOMATED DIFFERENTIAL WBC COUNT (56186) Entered By Bryan Zhao; Incident to Dustin [...] Ambulatory, Selected Billing Code(s): PHLEBOTOMY THERAPEUTIC SEPARATE PROCEDURE(24671) Entered By Bryan Zhao; Incident to Dustin Russell MD
--- OUTSIDE RECORDS SUMMARY | 2025-01-03 17:57 | XMS_ITS | CCD ---
Author Name Interface, [id number] lity Address [address] [place] [address] Organization [facility] Address [facility]5 [place] [address] Care Team Providers Care Production Crew Supervisor Name Role Phone Dustin Russell MD Unavailable [...] as he goes back and forth to [place]. Ordered 04/15/2024 Physician Order Phlebotomy (procedure) Wh en returns from [facility] in 2024: Plan phlbs as freq as Q4 weeks/Monthly. Until goes back to [place] (pt spends 8 mo in [place] and 4 moo here)Pt prefers 250 ml instead of 500 ml. Hold if Hct < 42%. Ordered Social History Date Name Value 06/02/2021 Sex Male Gender Identity Identifies as jonh epps
--- OUTSIDE RECORDS SUMMARY | 2025-01-03 17:57 | XMS_ITS | CCD ---
Author Name Interface, [id number] lity Address [address] [place] [address] Organization [facility] Address [facility]5 [place] [address] Care Team Providers Care Practice Manager Name Role Phone Dustin Russell MD Unavailable [...] as he goes back and forth to [place]. Ordered 04/15/2024 Physician Order Phlebotomy (procedure) Wh en returns from [facility] in 2024: Plan phlbs as freq as Q4 weeks/Monthly. Until goes back to [place] (pt spends 8 mo in [place] and 4 moo here)Pt prefers 250 ml instead of 500 ml. Hold if Hct < 42%. Ordered Social History Date Name Value 06/02/2021 Sex Male Gender Identity Identifies as jonh epps
--- OUTSIDE RECORDS SUMMARY | 2025-01-03 17:57 | XMS_ITS ---
Author Name Interface, [id number] lity Address [address] [place] [address] Organization [facility] Address [facility]5 [place] [address] Support Name Relationship Address Phone Linda Suarez [...] WBC 10 4.5 10.5 6.7 FINAL Dustin [facility] 08/08 RBC 10 4.7 6.1 5.22 FINAL Dustin [facility] 08/08 HGB g/dL 14.0 17.0 13.4 Low FINAL [facility] [place] 08/08 HCT % 42.0 51.0 42.2 FINAL Dust[facility] [place] 08/08 MCV fL 80.0 95.0 80.8 FINAL Dustin [facility] [place] 08/08 MCH pg 26.0 32.0 25.7 Low FINAL Dustin [facility] 08/08 MCHC g/dL 33.0 37.0 31.8 Low FINAL Dust[facility] [place] 08/08 RDW-S D fL 35.1 43.9 44.3 High FINAL Dust[facility] [place] 08/08 RDW-C V, % % 11.6 14.4 15.0 High FINAL Dust[facility] [place] 08/08 PLT 10 140.0 400.0 453 High FINAL Dustin [facility] 08/08 MPV fL 7.4 10.4 [...] MG Oral Capsule 2023 active Essential thrombocythe néo (disorder) 06/01 aspirin 81 MG Oral Capsule [...] Note Print Location: Unknown Date/Time Printed: 01/03/2025 14:57 ([facility] Patient: Dustin Rogers Sex: Male : [...] Code(s): BLOOD COUNT AUTOMATED DIFFERENTIAL WBC COUNT (64391) Entered By Bryan Zhao; Incident to Dustin [...] Ambulatory, Selected Billing Code(s): PHLEBOTOMY THERAPEUTIC SEPARATE PROCEDURE(52888) Entered By Bryan Zhao; Incident to Dustin Russell MD
--- OUTSIDE RECORDS SUMMARY | 2025-01-03 17:58 | XMS_ITS ---
Author Name Interface, [id number] lity Address [address] [place] [address] Organization [facility] Address [facility]5 [place] [address] Support Name Relationship Address Phone Linda Suarez [...] WBC 10 4.5 10.5 6.7 FINAL Dustin [facility] 08/08 RBC 10 4.7 6.1 5.22 FINAL Dustin [facility] 08/08 HGB g/dL 14.0 17.0 13.4 Low FINAL Dust[facility] [place] 08/08 HCT % 42.0 51.0 42.2 FINAL Dustin [facility] [place] 08/08 MCV fL 80.0 95.0 80.8 FINAL Dustin [place] 08/08 MCH pg 26.0 32.0 25.7 Low FINAL Dustin [facility] 08/08 MCHC g/dL 33.0 37.0 31.8 Low FINAL Dustin [facility] [place] 08/08 RDW-S D fL 35.1 43.9 44.3 High FINAL Dustin [facility] [place] 08/08 RDW-C V, % % 11.6 14.4 15.0 High FINAL Dustin [facility] [place] 08/08 PLT 10 140.0 400.0 453 High FINAL Dustin [facility] 08/08 MPV fL 7.4 10.4 9.0 [...] Print Location: Unknown Date/Time Printed: 01/03/2025 14:57 ([facility]) Patient: Dustin Rogers Sex: Male : [...] Code(s): BLOOD COUNT AUTOMATED DIFFERENTIAL WBC COUNT (05405) Entered By Bryan Zhao; Incident to Dustin [...] Ambulatory, Selected Billing Code(s): PHLEBOTOMY THERAPEUTIC SEPARATE PROCEDURE(64650) Entered By Bryan Zhao; Incident to Dustin Russell MD
--- OUTSIDE RECORDS SUMMARY | 2025-01-03 17:58 | XMS_ITS | CCD ---
Author Name Interface, [id number] lity Address [address] [place] [address] Organization [facility] Address [facility]5 [place] [address] Care Team Providers Care Psych Social Worker Name Role Phone Dustin Russell MD Unavailable [...] as he goes back and forth to [place]. Ordered 04/15/2024 Physician Order Phlebotomy (procedure) Wh en returns from [facility] in 2024: Plan phlbs as freq as Q4 weeks/Monthly. Until goes back to [place] (pt spends 8 mo in [place] and 4 moo here)Pt prefers 250 ml instead of 500 ml. Hold if Hct < 42%. Ordered Social History Date Name Value 06/02/2021 Sex Male Gender Identity Identifies as jonh epps
--- OUTSIDE RECORDS SUMMARY | 2025-01-03 17:58 | XMS_ITS | CCD ---
Author Name Interface, [id number] lity Address [address] [place] [address] Organization [facility] Address [facility]5 [place] [address] Care Team Providers Care Card Cutter Helper Name Role Phone Dustin Russell MD Unavailable [...] as he goes back and forth to [place]. Ordered 04/15/2024 Physician Order Phlebotomy (procedure) Wh en returns from [place] in 2024: Plan phlbs as freq as Q4 weeks/Monthly. Until goes back to [place] (pt spends 8 mo in [place] and 4 moo here)Pt prefers 250 ml instead of 500 ml. Hold if Hct < 42%. Ordered Social History Date Name Value 06/02/2021 Sex Male Gender Identity Identifies as jonh epps
--- OUTSIDE RECORDS SUMMARY | 2025-01-03 17:58 | XMS_ITS | CCD ---
Author Name Interface, [id number] lity Address [address] [place] [address] Organization [facility] Address [facility]5 [place] [address] Care Team Providers Care Children[employer] Ministry Director Name Role Phone Dustin Russell MD Unavailable [...] as he goes back and forth to [place]. Ordered 04/15/2024 Physician Order Phlebotomy (procedure) Wh en returns from [facility] in 2024: Plan phlbs as freq as Q4 weeks/Monthly. Until goes back to [place] (pt spends 8 mo in [place] and 4 moo here)Pt prefers 250 ml instead of 500 ml. Hold if Hct < 42%. Ordered Social History Date Name Value 06/02/2021 Sex Male Gender Identity Identifies as jonh epps
--- OUTSIDE RECORDS SUMMARY | 2025-01-03 17:58 | XMS_ITS ---
Author Name Interface, [id number] lity Address [address] [place] [address] Organization [facility] Address [facility]5 [place] [address] Support Name Relationship Address Phone Linda Suarez [...]
--- OUTSIDE RECORDS SUMMARY | 2025-01-03 17:59 | XMS_ITS | Encounter Summary ---
Author Organization [facility] Address [address] [place] [address] Phone Care Team Providers Care Display Associate Name Role Phone Byron Aguilar MD Primary Care Provid er Encounter Details Date Type Department Care Team (Latest Contact Info) Description 02/26/2019 Transcribe Orders [facility] Phleb [address] [place] [address] Byron Aguilar MD [address] [place] [address] Hypertension, unspecified type (Primary Dx); Hyperlipidemia, unspecified [...] Special Requests None 02/26/2019 11:11 AM EST [facility] GRAM STAIN NO ORGANISMS SEEN 02/27/2019 9:58 AM EST [facility] Urine Culture <10,000 colony forming units per mL 02/27/2019 9:56 AM EST [facility] Urine (Urine) 02/26/2019 11: 10 AM EST 02/26/2019 11:12 AM EST Comment:CLEAN CATCH us Byron Aguilar MD LAB MICROBIOLOGY CUL TURE ORDERABLES Final Result Performing Organization Address City/[facility]/ZIP Co de Phone Number [address] [address] * (ABNORMAL) URINALYSIS WITH SEDIMENT (02/26/2019 11:10 AM EST) WBC NONE SEEN NONE SEEN /hpf [facility] RBC 0-2(A) NONE SEEN /hpf [facility] URINE EPITHELIAL 0-4(A) NONE SEEN [facility] MUCUS NONE SEEN NONE SEEN /hpf [facility] BACTERIA Trace(A) NONE SEEN /hpf [facility] COLOR Yellow Yellow [facility] CLARITY Clear [facility] GLUCOSE Negative Negative [facility] BILI Negative Negative [facility] KETONES Negative Negative [facility] SPECIFIC GRAVITY 1.010 1.005 - 1.030 [facility] BLOOD Negative Negative [facility] PH 7.0 5.0 - 8.0 [facility] Protein-UA Negative Negative [facility] NITRITE Negative Negative [facility] Leukocyte esterase, ur Negative Negative [facility] Urine (Urine) 02/26/2019 11: 10 AM EST 02/26/2019 11:12 AM EST us Byron Aguilar MD LAB URINE ORDERABLES Final Result Performing Organization Address City/[facility]/ZIP Co de Phone Number [address] [address] * Hemoglobin A1c (02/26/2019 11:10 AM EST) HEMOGLOBIN A1C 5.8 4.3 - 5.8 % [facility] Blood 02/26/2019 11:1 0 AM EST 02/26/2019 11:12 AM EST us Byron Aguilar MD LAB BLOOD BKR ORDERA BLES Final Result Performing Organization Address City/[facility] Co de Phone Number [address] [address] * (ABNORMAL) Basic metabolic panel (02/26/2019 11:10 AM EST) SODIUM 139 133 - 146 mmol/L [facility] CHLORIDE 100 96 - 108 mmol/L [facility] POTASSIUM 4.4 3.3 - 5.1 mmol/L [facility] CO2 26 21 - 35 mmol/L [facility] BUN 19 6 - 19 mg/dL [facility] CREATININE 0.90 0.5 - 1.5 mg/dL [facility] GLUCOSE 119(H) 70 - 99 mg/dL [facility] CALCIUM 9.3 8.4 - 10.3 mg/dL [facility] EGFR 87 >59 mL/min/1.7 3m2 [facility] Comment:If patient is black, multiply result by 1.159. Estimated glomerular filtration rate calculated using the CKD-EPI equation. ANION GAP 17 10 - 20 mmol/L [facility] Blood 02/26/2019 11:1 0 AM EST 02/26/2019 11:12 AM EST us Byron Aguilar MD LAB BLOOD BKR ORDERA BLES Final Result Performing Organization Address City/[facility] Co de Phone Number [address] [address] * (ABNORMAL) Lipid panel (02/26/2019 11:10 AM EST) HDL 33 mg/dL [facility] Comment: Interpretation <40 mg/dL: Low HDL cholesterol (major risk factor for CHD) Greater than or equal to 60 mg/dL: High HDL cholesterol ( negative risk factor for CHD) HDL - cholesterol is affected by a number of factors, e.g. smoking, excerise, hormones, sex and age. CHOLESTEROL 222 0 - 240 mg/dL [facility] TRIGLYCERIDES 355(H) 30 - 160 mg/dL [facility] LDL 118 50 - 129 mg/dL [facility] Comment: LDL levels in terms of risk for coronary heart disease: <100 mg/dL: Optimal 100-129 mg/dL: Near or above optimal 130-159 mg/dL: Borderline high 160-189 mg/dL: High >190 mg/dL: Very High CARDIAC RISK RATIO 6.7(H) 3.4 - 5.0 [facility] Blood 02/26/2019 11:1 0 AM EST 02/26/2019 11:12 AM EST us Byron Aguilar MD LAB BLOOD BKR ORDERA BLES Final Result [facility] [address] [place] [address] documented in this encounter Visit Diagnoses Diagnosis Hypertension, unspecified type- Primary Hyperlipidemia, unspecified hyperlipidemia type Reflux esophagitis documented in this encounter Care Teams Display Associate Relationship Specialty Start Date End Date Byron Aguilar MD [address] [place] [address] PCP - General Internal Medicine 10/03/13 documented as of this encounter Additional Source Comments The information contained in this document represents components of the legal health record. It is not the complete legal health record.[facility]
--- OUTSIDE RECORDS SUMMARY | 2025-01-03 17:59 | XMS_ITS ---
Author Name Interface, [id number] lity Address [address] [place] [address] Organization [facility] Address [facility] [place] [address] Support Name Relationship Address Phone Linda Suarez [...] WBC 10 4.5 10.5 6.7 FINAL Dustin [facility] 08/08 RBC 10 4.7 6.1 5.22 FINAL Dustin [facility] 08/08 HGB g/dL 14.0 17.0 13.4 Low FINAL [facility] [place] 08/[facility] HCT % 42.0 51.0 42.2 FINAL Dust[facility] [place] 08/08 MCV fL 80.0 95.0 80.8 FINAL Dustin [facility] [place] 08/08 MCH pg 26.0 32.0 25.7 Low FINAL Dustin [facility] 08/08 MCHC g/dL 33.0 37.0 31.8 Low FINAL Dust[facility] [place] 08/08 RDW-S D fL 35.1 43.9 44.3 High FINAL Dust[facility] [place] 08/08 RDW-C V, % % 11.6 14.4 15.0 High FINAL Dust[facility] [place] 08/08 PLT 10 140.0 400.0 453 High FINAL Dustin [facility] 08/08 MPV fL 7.4 10.4 9.0 FINAL [...] Note Print Location: Unknown Date/Time Printed: 01/03/2025 14:59 ([facility]) Patient: Dustin Rogers Sex: Male : [...] Code(s): BLOOD COUNT AUTOMATED DIFFERENTIAL WBC COUNT (05770) Entered By Bryan Zhao; Incident to Dustin [...] Ambulatory, Selected Billing Code(s): PHLEBOTOMY THERAPEUTIC SEPARATE PROCEDURE(49504) Entered By Bryan Zhao; Incident to Dustin Russell MD
--- OUTSIDE RECORDS SUMMARY | 2025-01-03 17:59 | XMS_ITS ---
Author Name Interface, [id number] lity Address [address] [place] [address] Organization [facility] Address [facility] [place] [address] Support Name Relationship Address Phone Linda Suarez [...]
--- OUTSIDE RECORDS SUMMARY | 2025-01-03 18:00 | XMS_ITS ---
Author Name Interface, [id number] lity Address [address] [place] [address] Organization [facility] Address [facility] [place] [address] Support Name Relationship Address Phone Linda Suarez [...]
--- OUTSIDE RECORDS SUMMARY | 2025-01-03 18:00 | XMS_ITS | CCD ---
Author Name Interface, [id number] lity Address [address] [place] [address] Organization [facility] Address [facility] [place] [address] Care Team Providers Care Senior Software Developer Name Role Phone Dustin Russell MD Unavailable [...] as he goes back and forth to [place]. Ordered 04/15/2024 Physician Order Phlebotomy (procedure) Wh en returns from [facility] in 2024: Plan phlbs as freq as Q4 weeks/Monthly. Until goes back to [place] (pt spends 8 mo in [place] and 4 moo here)Pt prefers 250 ml instead of 500 ml. Hold if Hct < 42%. Ordered Social History Date Name Value 06/02/2021 Sex Male Gender Identity Identifies as jonh epps
--- OUTSIDE RECORDS SUMMARY | 2025-01-03 18:00 | XMS_ITS | CCD ---
Author Name Interface, [id number] lity Address [address] [place] [address] Organization [facility] Address [facility] [place] [address] Care Team Providers Care Ground Intelligence Officer Name Role Phone Dustin Russell MD Unavailable [...] as he goes back and forth to [place]. Ordered 04/15/2024 Physician Order Phlebotomy (procedure) Wh en returns from [facility] in 2024: Plan phlbs as freq as Q4 weeks/Monthly. Until goes back to [place] (pt spends 8 mo in [place] and 4 moo here)Pt prefers 250 ml instead of 500 ml. Hold if Hct < 42%. Ordered Social History Date Name Value 06/02/2021 Sex Male Gender Identity Identifies as jonh epps
--- OUTSIDE RECORDS SUMMARY | 2025-01-03 18:00 | XMS_ITS ---
Author Name Interface, [id number] lity Address [address] [place] [address] Organization [facility] Address [facility] [place] [address] Support Name Relationship Address Phone Linda Suarez [...] WBC 10 4.5 10.5 6.7 FINAL Dustin [facility] 08/08 RBC 10 4.7 6.1 5.22 FINAL Dustin [facility] 08/08 HGB g/dL 14.0 17.0 13.4 Low FINAL [facility] [place] 08/[facility] HCT % 42.0 51.0 42.2 FINAL [facility] [place] 08/08 MCV fL 80.0 95.0 80.8 FINAL Dustin [place] 08/08 MCH pg 26.0 32.0 25.7 Low FINAL Dustin [facility] 08/08 MCHC g/dL 33.0 37.0 31.8 Low FINAL [facility] [place] 08/08 RDW-S D fL 35.1 43.9 44.3 High FINAL [facility] [place] 08/08 RDW-C V, % % 11.6 14.4 15.0 High FINAL [facility] [place] 08/08 PLT 10 140.0 400.0 453 High FINAL Dustin [facility] 08/08 MPV fL 7.4 10.4 9.0 [...] Note Print Location: Unknown Date/Time Printed: 01/03/2025 15:00 ([facility]) Patient: Dustin Rogers Sex: Male [...] Code(s): BLOOD COUNT AUTOMATED DIFFERENTIAL WBC COUNT (09382) Entered By Bryan Zhao; Incident to Dustin [...] Ambulatory, Selected Billing Code(s): PHLEBOTOMY THERAPEUTIC SEPARATE PROCEDURE(23452) Entered By Bryan Zhao; Incident to Dustin Russell MD
--- OUTSIDE RECORDS SUMMARY | 2025-01-03 18:00 | XMS_ITS ---
Author Name Interface, [id number] lity Address [address] [place] [address] Organization [facility] Address [facility] [place] [address] Support Name Relationship Address Phone Linda Suarez [...]
--- OUTSIDE RECORDS SUMMARY | 2025-01-03 18:01 | XMS_ITS ---
Author Name Interface, [id number] lity Address [address] [place] [address] Organization [facility] Address [facility] [place] [address] Support Name Relationship Address Phone Linda Suarez [...] g/dL 14.0 17.0 13.4 Low FINAL [facility] [place] 08/[facility] HCT % 42.0 51.0 42.2 FINAL Dust[facility] [place] 08/08 MCV fL 80.0 95.0 80.8 FINAL Dustin [place] 08/08 MCH pg 26.0 32.0 25.7 Low FINAL Dustin [facility] 08/08 MCHC g/dL 33.0 37.0 31.8 Low FINAL Dust[facility] [place] 08/08 RDW-S D fL 35.1 43.9 44.3 High FINAL Dust[facility] [place] 08/08 RDW-C V, % % 11.6 14.4 15.0 High FINAL Dust[facility] [place] 08/08 PLT 10 140.0 400.0 453 High [...] Print Location: Unknown Date/Time Printed: 01/03/2025 15:00 ([facility]) Patient: Dustin Rogers Sex: Male : 1950 [...] Code(s): BLOOD COUNT AUTOMATED DIFFERENTIAL WBC COUNT (23618) Entered By Bryan Zhao; Incident to Dustin [...] Ambulatory, Selected Billing Code(s): PHLEBOTOMY THERAPEUTIC SEPARATE PROCEDURE(67050) Entered By Bryan Zhao; Incident to Dustin Russell MD
--- OUTSIDE RECORDS SUMMARY | 2025-01-03 18:01 | XMS_ITS | CCD ---
Author Name Interface, [id number] lity Address [address] [place] [address] Organization [facility] Address [facility] [place] [address] Care Team Providers Care Alemite Operator Name Role Phone Dustin Russell MD Unavailable [...] as he goes back and forth to [place]. Ordered 04/15/2024 Physician Order Phlebotomy (procedure) Wh en returns from [facility] in 2024: Plan phlbs as freq as Q4 weeks/Monthly. Until goes back to [place] (pt spends 8 mo in [place] and 4 moo here)Pt prefers 250 ml instead of 500 ml. Hold if Hct < 42%. Ordered Social History Date Name Value 06/02/2021 Sex Male Gender Identity Identifies as jonh epps
--- OUTSIDE RECORDS SUMMARY | 2025-01-03 18:01 | XMS_ITS | Clinical Summary ---
Author Organization [facility] [address] [facility] Address [address] [place] [address] Phone Care Team Providers Care Roll Tube Setter Name Role Phone Bakari Crawford MD Primary Care Provider [phone] Allergies No known active allergies Social History [...] Pneumococcal Vaccine: 50+ Ye ars (1 of 1 - PCV) 2000 RSV Immunization Adult Patie nts (1 - Risk 50-74 years 1-dose series) 2000 Zoster Vaccines (1 of 2) 2000 Hepatitis B Vaccines (1 of 3 - Risk 3-dose series) 2010 Depression Screening 02/21/2024 Abdominal Aortic Aneurysm (A AA) Screen 03/21/2024 Cholesterol Screening (Lipid Panel) 03/21/2024 02/26/2019 Falls Risk Assessment 03/21/2024 Hepatitis C Screening 03/21/2024 Medicare Annual Wellness Visit 03/21/2024 Social Influencers of Health Screening 03/21/2024 COVID-19 Vaccine ( - 2024-2 6 season) 2024 Influenza Vaccine (#1) 2024 Colorectal Cancer Screening: [...] Recently Relevant to Health Maintenance Insurance MEDICARE [facility] Care Teams Roll Tube Setter Relationship Specialty Start Date End Date Bakari Crawford MD [facility] [address] [place] [address] PCP - General Family Medicine 03/21/24
--- OUTSIDE RECORDS SUMMARY | 2025-01-03 18:01 | XMS_ITS ---
Author Name Interface, [id number] lity Address [address] [place] [address] Organization [facility] Address [facility] [place] [address] Support Name Relationship Address Phone Linda Suarez [...]
--- OUTSIDE RECORDS SUMMARY | 2025-01-03 18:01 | XMS_ITS | CCD ---
Author Name Interface, [id number] lity Address [address] [place] [address] Organization [facility] Address [facility] [place] [address] Care Team Providers Care Inside Technical Sales Representative Name Role Phone Dustin Russell MD Unavailable [...] as he goes back and forth to [place]. Ordered 04/15/2024 Physician Order Phlebotomy (procedure) Wh en returns from [facility] in 2024: Plan phlbs as freq as Q4 weeks/Monthly. Until goes back to [place] (pt spends 8 mo in [place] and 4 moo here)Pt prefers 250 ml instead of 500 ml. Hold if Hct < 42%. Ordered Social History Date Name Value 06/02/2021 Sex Male Gender Identity Identifies as jonh epps
--- OUTSIDE RECORDS SUMMARY | 2025-01-03 18:02 | XMS_ITS ---
Author Name Interface, [id number] lity Address [address] [place] [address] Organization [facility] Address [facility] [place] [address] Support Name Relationship Address Phone Linda Suarez [...]
--- OUTSIDE RECORDS SUMMARY | 2025-01-03 18:02 | XMS_ITS ---
Author Name Interface, [id number] lity Address [address] [place] [address] Organization [facility] Address [facility] [place] [address] Support Name Relationship Address Phone Linda Suarez [...]
--- OUTSIDE RECORDS SUMMARY | 2025-01-03 18:02 | XMS_ITS | CCD ---
Author Name Interface, [id number] lity Address [address] [place] [address] Organization [facility] Address [facility] [place] [address] Care Team Providers Care Waiter/Waitress Formal Name Role Phone Dustin Russell MD Unavailable [...] as he goes back and forth to [place]. Ordered 04/15/2024 Physician Order Phlebotomy (procedure) Wh en returns from [facility] in 2024: Plan phlbs as freq as Q4 weeks/Monthly. Until goes back to [place] (pt spends 8 mo in [place] and 4 moo here)Pt prefers 250 ml instead of 500 ml. Hold if Hct < 42%. Ordered Social History Date Name Value 06/02/2021 Sex Male Gender Identity Identifies as jonh epps
--- OUTSIDE RECORDS SUMMARY | 2025-01-03 18:02 | XMS_ITS ---
Author Name Interface, [id number] lity Address [address] [place] [address] Organization [facility] Address [facility] [place] [address] Support Name Relationship Address Phone Linda Suarez [...] WBC 10 4.5 10.5 6.7 FINAL Dustin [facility] 08/08 RBC 10 4.7 6.1 5.22 FINAL Dustin [facility] 08/08 HGB g/dL 14.0 17.0 13.4 Low FINAL [facility] [place] 08/[facility] HCT % 42.0 51.0 42.2 FINAL Dust[facility] [place] 08/08 MCV fL 80.0 95.0 80.8 FINAL Dustin Russell [place] 08/08 MCH pg 26.0 32.0 25.7 Low FINAL Dustin [facility] 08/08 MCHC g/dL 33.0 37.0 31.8 Low FINAL Dust[facility] [place] 08/08 RDW-S D fL 35.1 43.9 44.3 High FINAL Dustin [facility] [place] 08/08 RDW-C V, % % 11.6 14.4 15.0 High FINAL Dustin [facility] [place] 08/08 PLT 10 140.0 400.0 453 High FINAL Dustin [facility] 08/08 MPV fL 7.4 10.4 9.0 [...] Note Print Location: Unknown Date/Time Printed: 01/03/2025 15:02 ([facility]) Patient: Dustin Rogers Sex: Male : [...] Code(s): BLOOD COUNT AUTOMATED DIFFERENTIAL WBC COUNT (22172) Entered By Bryan Zhao; Incident to Dustin [...] Ambulatory, Selected Billing Code(s): PHLEBOTOMY THERAPEUTIC SEPARATE PROCEDURE(69625) Entered By Bryan Zhao; Incident to Dustin Russell MD
--- OUTSIDE RECORDS SUMMARY | 2025-01-03 18:03 | XMS_ITS ---
Author Name Interface, [id number] lity Address [address] [place] [address] Organization [facility] Address [facility] [place] [address] Support Name Relationship Address Phone Linda Suarez [...]
--- OUTSIDE RECORDS SUMMARY | 2025-01-03 18:03 | XMS_ITS ---
Author Name Interface, [id number] lity Address [address] [place] [address] Organization [facility] Address [facility] [place] [address] Support Name Relationship Address Phone Linda Suarez [...] WBC 10 4.5 10.5 6.7 FINAL Dustin [facility] 08/08 RBC 10 4.7 6.1 5.22 FINAL Dustin [facility] 08/08 HGB g/dL 14.0 17.0 13.4 Low FINAL [facility] [place] 08/[facility] HCT % 42.0 51.0 42.2 FINAL [facility] [place] 08/08 MCV fL 80.0 95.0 80.8 FINAL Dustin Russell [place] 08/08 MCH pg 26.0 32.0 25.7 Low FINAL Dustin [facility] 08/08 MCHC g/dL 33.0 37.0 31.8 Low FINAL [facility] [place] 08/08 RDW-S D fL 35.1 43.9 44.3 High FINAL Dustin [facility] [place] 08/08 RDW-C V, % % 11.6 14.4 15.0 High FINAL Dustin [facility] [place] 08/08 PLT 10 140.0 400.0 453 High FINAL Dustin [facility] 08/08 MPV fL 7.4 10.4 9.0 [...] Note Print Location: Unknown Date/Time Printed: 01/03/2025 15:03 ([facility]) Patient: Dustin Rogers Sex: Male : [...] Code(s): BLOOD COUNT AUTOMATED DIFFERENTIAL WBC COUNT (56433) Entered By Bryan Zhao; Incident to Dustin [...] Ambulatory, Selected Billing Code(s): PHLEBOTOMY THERAPEUTIC SEPARATE PROCEDURE(26922) Entered By Bryan Zhao; Incident to Dustin Russell MD
--- OUTSIDE RECORDS SUMMARY | 2025-01-03 18:03 | XMS_ITS ---
Author Name Interface, [id number] lity Address [address] [place] [address] Organization [facility] Address [facility] [place] [address] Support Name Relationship Address Phone Linda Suarez [...]
--- OUTSIDE RECORDS SUMMARY | 2025-01-03 18:04 | XMS_ITS ---
Author Name Interface, [id number] lity Address [address] [place] [address] Organization [facility] Address [facility] [place] [address] Support Name Relationship Address Phone Linda Suarez [...] g/dL 14.0 17.0 13.4 Low FINAL Dustin [facility] [place] 08/08 HCT % 42.0 51.0 42.2 FINAL [facility] [place] 08/08 MCV fL 80.0 95.0 80.8 FINAL Dustin Russell [place] 08/08 MCH pg 26.0 32.0 25.7 Low FINAL Dustin [facility] 08/08 MCHC g/dL 33.0 37.0 31.8 Low FINAL [facility] [place] 08/08 RDW-S D fL 35.1 43.9 44.3 High FINAL Dust[facility] [place] 08/08 RDW-C V, % % 11.6 14.4 15.0 High FINAL [facility] [place] 08/08 PLT 10 140.0 400.0 453 High [...] # 10 0.0 0.5 0.1 FINAL [place]in [place] 08/08 BA # 10 0.01 0.08 [...] Note Print Location: Unknown Date/Time Printed: 01/03/2025 15:04 ([facility] Patient: Dustin Rogers Sex: Male : [...] Code(s): BLOOD COUNT AUTOMATED DIFFERENTIAL WBC COUNT (10788) Entered By Bryan Zhao; Incident to Dustin [...] Ambulatory, Selected Billing Code(s): PHLEBOTOMY THERAPEUTIC SEPARATE PROCEDURE(50623) Entered By Bryan Zhao; Incident to Dustin Russell MD
--- OUTSIDE RECORDS SUMMARY | 2025-01-03 18:04 | XMS_ITS | CCD ---
Author Name Interface, [id number] lity Address [address] [place] [address] Organization [facility] Address [facility] [place] [address] Care Team Providers Care Senior Business Manager Name Role Phone Dustin Russell MD [...] as he goes back and forth to [place]. Ordered 04/15/2024 Physician Order Phlebotomy (procedure) Wh en returns from [facility] in 2024: Plan phlbs as freq as Q4 weeks/Monthly. Until goes back to [place] (pt spends 8 mo in [place] and 4 moo here)Pt prefers 250 ml instead of 500 ml. Hold if Hct < 42%. Ordered Social History Date Name Value 06/02/2021 Sex Male Gender Identity Identifies as jonh epps
--- OUTSIDE RECORDS SUMMARY | 2025-01-03 18:04 | XMS_ITS | Clinical Summary ---
Author Organization [facility] Address [address] [place] [address] Phone Care Team Providers Care Towel Stretcher Name Role Phone Byron Aguilar MD Primary [...] 10 mg by mouth daily. Active omega 7-oua-qyo-fish oil 1,000 mg (120 mg-180 mg) Cap [...] patient's age to complete this topic IPV VACCINES Aged Out No longer eligi ble [...] (02/26/2019 11:10 AM EST) HDL 33 mg/dL [facility] Comment: Interpretation <40 mg/dL: Low HDL cholesterol (major risk factor for CHD) Greater than or equal to 60 mg/dL: High HDL cholesterol ( negative risk factor for CHD) HDL - cholesterol is affected by a number of factors, e.g. smoking, excerise, hormones, sex and age. CHOLESTEROL 222 0 - 240 mg/dL [facility] TRIGLYCERIDES 355(H) 30 - 160 mg/dL [facility] LDL 118 50 - 129 mg/dL [facility] Comment: LDL levels in terms of risk for coronary heart disease: <100 mg/dL: Optimal 100-129 mg/dL: Near or above optimal 130-159 mg/dL: Borderline high 160-189 mg/dL: High >190 mg/dL: Very High CARDIAC RISK RATIO 6.7(H) 3.4 - 5.0 [facility] Blood 02/26/2019 11:1 0 AM EST 02/26/2019 11:12 AM EST Byron Aguilar MD LAB BLOOD BKR ORDERA BLES Final Result Performing Organization Address City/State/[facility] Co de Phone Number [address] [address] from Last 3 Months or Most Recently Relevant to Health Maintenance Insurance MEDICARE PART A & B [facility] MEDICARE SUPPLEMENT MEDICARE PART A & B [employer] MEDICARE SUPPLEMENT MEDICARE PART A & B [employer] MEDICARE SUPPLEMENT MEDICARE PART A & B [facility] MEDICARE SUPPLEMENT MEDICARE PART A & B MEDICARE SUPPLEMENT MEDICARE PART A & B [facility] MEDICARE SUPPLEMENT MEDICARE PART A & B [employer] MEDICARE SUPPLEMENT MEDICARE PART A & B [facility] EXTENSION MEDICARE SUPPLEMENT [address] [place] [id number] MEDICARE PART A & B [facility] MEDICARE SUPPLEMENT Care Teams Towel Stretcher Relationship Specialty Start Date End Date Byron Aguilar MD [address] [place] [address] PCP - General Internal Medicine 10/03/13 Additional Source Comments The information contained in this document represents components of the legal health record. It is not the complete legal health record.[facility]
--- OUTSIDE RECORDS SUMMARY | 2025-01-03 18:04 | XMS_ITS ---
Author Name Interface, [id number] lity Address [address] [place] [address] Organization [facility] Address [facility]5 [place] [address] Support Name Relationship Address Phone Linda Suarez [...] WBC 10 4.5 10.5 6.7 FINAL Dustin [facility] 08/08 RBC 10 4.7 6.1 5.22 FINAL Dustin [facility] 08/08 HGB g/dL 14.0 17.0 13.4 Low FINAL [facility] 08/[facility] HCT % 42.0 51.0 42.2 FINAL [facility] 08/08 MCV fL 80.0 95.0 80.8 FINAL Dustin [place] 08/08 MCH pg 26.0 32.0 25.7 Low FINAL Dustin [facility] 08/08 MCHC g/dL 33.0 37.0 31.8 Low FINAL [facility] 08/08 RDW-S D fL 35.1 43.9 44.3 High FINAL Dust[facility] 08/08 RDW-C V, % % 11.6 14.4 15.0 High FINAL [facility] 08/08 PLT 10 140.0 400.0 453 High FINAL Dustin [facility] 08/08 MPV fL 7.4 10.4 9.0 [...] Print Location: Unknown Date/Time Printed: 01/03/2025 15:03 ([facility]) Patient: Dustin Rogers Sex: Male [...] Code(s): BLOOD COUNT AUTOMATED DIFFERENTIAL WBC COUNT (73900) Entered By Bryan Zhao; Incident to Dustin [...] Ambulatory, Selected Billing Code(s): PHLEBOTOMY THERAPEUTIC SEPARATE PROCEDURE(76693) Entered By Bryan Zhao; Incident to Dustin Russell MD
--- OUTSIDE RECORDS SUMMARY | 2025-01-03 18:04 | XMS_ITS | CCD ---
Author Name Interface, [id number] lity Address [address] [place] [address] Organization [facility] Address [facility]5 [place] [address] Care Team Providers Care Petal Shaper Hand Name Role Phone Dustin Russell MD Unavailable [...] as he goes back and forth to [place]. Ordered 04/15/2024 Physician Order Phlebotomy (procedure) Wh en returns from [facility] in 2024: Plan phlbs as freq as Q4 weeks/Monthly. Until goes back to [place] (pt spends 8 mo in [place] and 4 moo here)Pt prefers 250 ml instead of 500 ml. Hold if Hct < 42%. Ordered Social History Date Name Value 06/02/2021 Sex Male Gender Identity Identifies as jonh epps
--- OUTSIDE RECORDS SUMMARY | 2025-01-03 18:05 | XMS_ITS ---
Author Name Interface, [id number] lity Address [address] [place] [address] Organization [facility] Address [facility]5 [place] [address] Support Name Relationship Address Phone Linda Suarez [...] WBC 10 4.5 10.5 6.7 FINAL Dustin [facility] 08/08 RBC 10 4.7 6.1 5.22 FINAL Dustin [facility] 08/08 HGB g/dL 14.0 17.0 13.4 Low FINAL [facility] [place] 08/08 HCT % 42.0 51.0 42.2 FINAL [facility] [place] 08/08 MCV fL 80.0 95.0 80.8 FINAL Dustin [place] 08/08 MCH pg 26.0 32.0 25.7 Low FINAL Dustin [facility] 08/08 MCHC g/dL 33.0 37.0 31.8 Low FINAL [facility] [place] 08/08 RDW-S D fL 35.1 43.9 44.3 High FINAL [facility] [place] 08/08 RDW-C V, % % 11.6 14.4 15.0 High FINAL [facility] [place] 08/08 PLT 10 140.0 400.0 453 High FINAL Dustin [facility] 08/08 MPV fL 7.4 10.4 [...] Print Location: Unknown Date/Time Printed: 01/03/2025 15:04 ([facility]) Patient: Dustin Rogers Sex: Male [...] Code(s): BLOOD COUNT AUTOMATED DIFFERENTIAL WBC COUNT (58443) Entered By Bryan Zhao; Incident to Dustin [...] Ambulatory, Selected Billing Code(s): PHLEBOTOMY THERAPEUTIC SEPARATE PROCEDURE(25798) Entered By Bryan Zhao; Incident to Dustin Russell MD
--- OUTSIDE RECORDS SUMMARY | 2025-01-03 18:05 | XMS_ITS | CCD ---
Author Name Interface, [id number] lity Address [address] [place] [address] Organization [facility] Address [facility]5 [place] [address] Care Team Providers Care Machine Mover Name Role Phone Dustin Russell MD Unavailable [...] as he goes back and forth to [place]. Ordered 04/15/2024 Physician Order Phlebotomy (procedure) Wh en returns from [facility] in 2024: Plan phlbs as freq as Q4 weeks/Monthly. Until goes back to [place] (pt spends 8 mo in [place] and 4 moo here)Pt prefers 250 ml instead of 500 ml. Hold if Hct < 42%. Ordered Social History Date Name Value 06/02/2021 Sex Male Gender Identity Identifies as jonh epps
--- OUTSIDE RECORDS SUMMARY | 2025-01-03 18:05 | XMS_ITS ---
Author Name Interface, [id number] lity Address [address] [place] [address] Organization [facility] Address [facility]5 [place] [address] Support Name Relationship Address Phone Linda Suarez [...]
--- OUTSIDE RECORDS SUMMARY | 2025-01-03 18:05 | XMS_ITS ---
Author Name Interface, [id number] lity Address [address] [place] [address] Organization [facility] Address [facility]5 [place] [address] Support Name Relationship Address Phone Linda Suarez [...]
--- OUTSIDE RECORDS SUMMARY | 2025-01-03 18:05 | XMS_ITS | CCD ---
Author Name Interface, [id number] lity Address [address] [place] [address] Organization [facility] Address [facility]5 [place] [address] Care Team Providers Care Sampling Theory Teacher Name Role Phone Dustin Russell MD Unavailable [...] as he goes back and forth to [place]. Ordered 04/15/2024 Physician Order Phlebotomy (procedure) Wh en returns from [facility] in 2024: Plan phlbs as freq as Q4 weeks/Monthly. Until goes back to [place] (pt spends 8 mo in [place] and 4 moo here)Pt prefers 250 ml instead of 500 ml. Hold if Hct < 42%. Ordered Social History Date Name Value 06/02/2021 Sex Male Gender Identity Identifies as jonh epps
--- OUTSIDE RECORDS SUMMARY | 2025-01-03 18:05 | XMS_ITS | CCD ---
Author Name Interface, [id number] lity Address [address] [place] [address] Organization [facility] Address [facility]5 [place] [address] Care Team Providers Care Mat Linker Name Role Phone Dustin Russell MD Unavailable [...] as he goes back and forth to [place]. Ordered 04/15/2024 Physician Order Phlebotomy (procedure) Wh en returns from [facility] in 2024: Plan phlbs as freq as Q4 weeks/Monthly. Until goes back to [place] (pt spends 8 mo in [place] and 4 moo here)Pt prefers 250 ml instead of 500 ml. Hold if Hct < 42%. Ordered Social History Date Name Value 06/02/2021 Sex Male Gender Identity Identifies as jonh epps
--- OUTSIDE RECORDS SUMMARY | 2025-01-03 18:06 | XMS_ITS ---
Author Name Interface, [id number] lity Address [address] [place] [address] Organization [facility] Address [facility]5 [place] [address] Support Name Relationship Address Phone Linda Suarez [...] WBC 10 4.5 10.5 6.7 FINAL Dustin [facility] 08/08 RBC 10 4.7 6.1 5.22 FINAL Dustin [facility] 08/08 HGB g/dL 14.0 17.0 13.4 Low FINAL [facility] [place] 08/[facility] HCT % 42.0 51.0 42.2 FINAL [facility] [place] 08/08 MCV fL 80.0 95.0 80.8 FINAL Dustin Russell [place] 08/08 MCH pg 26.0 32.0 25.7 Low FINAL Dustin [facility] 08/08 MCHC g/dL 33.0 37.0 31.8 Low FINAL [facility] [place] 08/08 RDW-S D fL 35.1 43.9 44.3 High FINAL Dust[facility] [place] 08/08 RDW-C V, % % 11.6 14.4 15.0 High FINAL [facility] [place] 08/08 PLT 10 140.0 400.0 453 High FINAL Dustin [facility] 08/08 MPV fL 7.4 10.4 9.0 [...] Note Print Location: Unknown Date/Time Printed: 01/03/2025 15:05 ([facility]) Patient: Dustin Rogers Sex: Male : 1950 [...] Code(s): BLOOD COUNT AUTOMATED DIFFERENTIAL WBC COUNT (72998) Entered By Bryan Zhao; Incident to Dustin [...] Ambulatory, Selected Billing Code(s): PHLEBOTOMY THERAPEUTIC SEPARATE PROCEDURE(01849) Entered By Bryan Zhao; Incident to Dustin Russell MD
--- OUTSIDE RECORDS SUMMARY | 2025-01-03 18:06 | XMS_ITS | CCD ---
Author Name Interface, [id number] lity Address [address] [place] [address] Organization [facility] Address [facility]5 [place] [address] Care Team Providers Care Renewable Energy Trader Name Role Phone Dustin Russell MD Unavailable [...] as he goes back and forth to [place]. Ordered 04/15/2024 Physician Order Phlebotomy (procedure) Wh en returns from [facility] in 2024: Plan phlbs as freq as Q4 weeks/Monthly. Until goes back to [place] (pt spends 8 mo in [place] and 4 moo here)Pt prefers 250 ml instead of 500 ml. Hold if Hct < 42%. Ordered Social History Date Name Value 06/02/2021 Sex Male Gender Identity Identifies as jonh epps
--- OUTSIDE RECORDS SUMMARY | 2025-01-03 18:06 | XMS_ITS | CCD ---
Author Name Interface, [id number] lity Address [address] [place] [address] Organization [facility] Address [facility]5 [place] [address] Care Team Providers Care Card Tape Converter Operator Name Role Phone Dustin Russell MD [...] as he goes back and forth to [place]. Ordered 04/15/2024 Physician Order Phlebotomy (procedure) Wh en returns from [facility] in 2024: Plan phlbs as freq as Q4 weeks/Monthly. Until goes back to [place] (pt spends 8 mo in [place] and 4 moo here)Pt prefers 250 ml instead of 500 ml. Hold if Hct < 42%. Ordered Social History Date Name Value 06/02/2021 Sex Male Gender Identity Identifies as jonh epps
--- OUTSIDE RECORDS SUMMARY | 2025-01-03 18:06 | XMS_ITS ---
Author Name Interface, [id number] lity Address [address] [place] [address] Organization [facility] Address [facility]5 [place] [address] Support Name Relationship Address Phone Linda Suarez [...] WBC 10 4.5 10.5 6.7 FINAL Dustin [facility] 08/08 RBC 10 4.7 6.1 5.22 FINAL Dustin [facility] 08/08 HGB g/dL 14.0 17.0 13.4 Low FINAL [facility] 08[facility] HCT % 42.0 51.0 42.2 FINAL [facility] 08/08 MCV fL 80.0 95.0 80.8 FINAL Dustin Russell [place] 08/08 MCH pg 26.0 32.0 25.7 Low FINAL Dustin [facility] 08/08 MCHC g/dL 33.0 37.0 31.8 Low FINAL [facility] 08/08 RDW-S D fL 35.1 43.9 44.3 High FINAL [facility] 08/08 RDW-C V, % % 11.6 14.4 15.0 High FINAL [facility] 08/08 PLT 10 140.0 400.0 453 High FINAL Dustin [facility] 08/08 MPV fL 7.4 10.4 9.0 [...] Note Print Location: Unknown Date/Time Printed: 01/03/2025 15:06 ([facility]) Patient: Dustin Rogers Sex: Male [...] Code(s): BLOOD COUNT AUTOMATED DIFFERENTIAL WBC COUNT (53212) Entered By Bryan Zhao; Incident to Dustin [...] Ambulatory, Selected Billing Code(s): PHLEBOTOMY THERAPEUTIC SEPARATE PROCEDURE(28851) Entered By Bryan Zhao; Incident to Dustin Russell MD
--- OUTSIDE RECORDS SUMMARY | 2025-01-03 18:07 | XMS_ITS ---
Author Name Interface, [id number] lity Address [address] [place] [address] Organization [facility] Address [facility]5 [place] [address] Support Name Relationship Address Phone Linda Suarez [...] WBC 10 4.5 10.5 6.7 FINAL Dustin [facility] 08/08 RBC 10 4.7 6.1 5.22 FINAL Dustin [facility] 08/08 HGB g/dL 14.0 17.0 13.4 Low FINAL [facility] [place] 08/08 HCT % 42.0 51.0 42.2 FINAL [facility] [place] 08/08 MCV fL 80.0 95.0 80.8 FINAL Dustin Russell [place] 08/08 MCH pg 26.0 32.0 25.7 Low FINAL Dustin [facility] 08/08 MCHC g/dL 33.0 37.0 31.8 Low FINAL [facility] [place] 08/08 RDW-S D fL 35.1 43.9 44.3 High FINAL Dust[facility] [place] 08/08 RDW-C V, % % 11.6 14.4 15.0 High FINAL [facility] [place] 08/08 PLT 10 140.0 400.0 453 High FINAL Dustin [facility] 08/08 MPV fL 7.4 10.4 9.0 [...] % % 0.7 7.0 1.2 FINAL [place]in [place] 08/08 BA % % 0.1 1.2 [...] Note Print Location: Unknown Date/Time Printed: 01/03/2025 15:07 ([facility]) Patient: Dustin Rogers Sex: Male [...] Code(s): BLOOD COUNT AUTOMATED DIFFERENTIAL WBC COUNT (84803) Entered By Bryan Zhao; Incident to Dustin [...] Ambulatory, Selected Billing Code(s): PHLEBOTOMY THERAPEUTIC SEPARATE PROCEDURE(22640) Entered By Bryan Zhao; Incident to Dustin Russell MD
--- OUTSIDE RECORDS SUMMARY | 2025-01-03 18:07 | XMS_ITS ---
Author Name Interface, [id number] lity Address [address] [place] [address] Organization [facility] Address [facility]5 [place] [address] Support Name Relationship Address Phone Linda Suarez [...] WBC 10 4.5 10.[address] [facility] 08/08 RBC 10 4.[address] [facility] 08/08 HGB g/dL 14.0 17.0 13.4 Low FINAL [facility] [place] 08/[facility] HCT % 42.0 51.0 42.2 FINAL [facility] [place] 08/08 MCV fL 80.0 95.0 80.8 FINAL Dustin Russell [place] 08/08 MCH pg 26.0 32.0 25.[address] [facility] 08/08 MCHC g/dL 33.0 37.0 31.8 Low FINAL [facility] [place] 08/08 RDW-S D fL 35.1 43.9 44.3 High FINAL [facility] [place] 08/08 RDW-C V, % % 11.6 14.4 15.0 High FINAL [facility] [place] 08/08 PLT 10 140.0 400.[address] [facility] 08/08 MPV fL 7.4 10.4 9.0 [...] Print Location: Unknown Date/Time Printed: 01/03/2025 15:06 ([facility]) Patient: Dustin Rogers Sex: Male [...] Code(s): BLOOD COUNT AUTOMATED DIFFERENTIAL WBC COUNT (72429) Entered By Bryan Zhao; Incident to Dustin [...] Ambulatory, Selected Billing Code(s): PHLEBOTOMY THERAPEUTIC SEPARATE PROCEDURE(59980) Entered By Bryan Zhao; Incident to Dustin Russell MD
--- OUTSIDE RECORDS SUMMARY | 2025-01-03 18:07 | XMS_ITS ---
Author Name Interface, [id number] lity Address [address] [place] [address] Organization [facility] Address [facility]5 [place] [address] Support Name Relationship Address Phone Linda Suarez [...] g/dL 14.0 17.0 13.4 Low FINAL [facility] [place] 08/08 HCT % 42.0 51.0 42.2 FINAL Dust[facility] [place] 08/08 MCV fL 80.0 95.0 80.8 FINAL Dustin [place] 08/08 MCH pg 26.0 32.0 25.7 Low FINAL Dustin [facility] 08/08 MCHC g/dL 33.0 37.0 31.8 Low FINAL Dustin [facility] [place] 08/08 RDW-S D fL 35.1 43.9 44.3 High FINAL Dustin [facility] [place] 08/08 RDW-C V, % % 11.6 14.4 15.0 High FINAL Dustin [facility] [place] 08/08 PLT 10 140.0 400.0 453 High [...] Print Location: Unknown Date/Time Printed: 01/03/2025 15:07 ([facility]) Patient: Dustin Rogers Sex: Male : [...] Code(s): BLOOD COUNT AUTOMATED DIFFERENTIAL WBC COUNT (86759) Entered By Bryan Zhao; Incident to Dustin [...] Ambulatory, Selected Billing Code(s): PHLEBOTOMY THERAPEUTIC SEPARATE PROCEDURE(84322) Entered By Bryan Zhao; Incident to Dustin Russell MD
--- OUTSIDE RECORDS SUMMARY | 2025-01-03 18:07 | XMS_ITS | CCD ---
Author Name Interface, [id number] lity Address [address] [place] [address] Organization [facility] Address [facility]5 [place] [address] Care Team Providers Care Truck Rental Service Attendant Name Role Phone Dustin Russell MD Unavailable [...] as he goes back and forth to [place]. Ordered 04/15/2024 Physician Order Phlebotomy (procedure) Wh en returns from [facility] in 2024: Plan phlbs as freq as Q4 weeks/Monthly. Until goes back to [place] (pt spends 8 mo in [place] and 4 moo here)Pt prefers 250 ml instead of 500 ml. Hold if Hct < 42%. Ordered Social History Date Name Value 06/02/2021 Sex Male Gender Identity Identifies as jonh epps
--- OUTSIDE RECORDS SUMMARY | 2025-01-03 18:08 | XMS_ITS ---
Author Name Interface, [id number] lity Address [address] [place] [address] Organization [facility] Address [facility]5 [place] [address] Support Name Relationship Address Phone Linda Suarez [...]
--- OUTSIDE RECORDS SUMMARY | 2025-01-03 18:08 | XMS_ITS | CCD ---
Author Name Interface, U4Xgquxev lity Address [address] [place] [address] Organization [facility] Address [facility]5 [place] [address] Care Team Providers Care Engine Lathe Operator Name Role Phone Dustin Russell MD [...] as he goes back and forth to [place]. Ordered 04/15/2024 Physician Order Phlebotomy (procedure) Wh en returns from [facility] in 2024: Plan phlbs as freq as Q4 weeks/Monthly. Until goes back to [place] (pt spends 8 mo in [place] and 4 moo here)Pt prefers 250 ml instead of 500 ml. Hold if Hct < 42%. Ordered Social History Date Name Value 06/02/2021 Sex Male Gender Identity Identifies as jonh epps
--- OUTSIDE RECORDS SUMMARY | 2025-01-03 18:08 | XMS_ITS ---
Author Name Interface, [id number] lity Address [address] [place] [address] Organization [facility] Address [facility]5 [place] [address] Support Name Relationship Address Phone Linda Suarez [...]
--- OUTSIDE RECORDS SUMMARY | 2025-01-03 18:08 | XMS_ITS | CCD ---
Author Name Interface, W2Lawslls lity Address [address] [place] [address] Organization [facility] Address [facility]5 [place] [address] Care Team Providers Care Building Custodian Name Role Phone Dustin Russell MD Unavailable [...] as he goes back and forth to [place]. Ordered 04/15/2024 Physician Order Phlebotomy (procedure) Wh en returns from [facility] in 2024: Plan phlbs as freq as Q4 weeks/Monthly. Until goes back to [place] (pt spends 8 mo in [place] and 4 moo here)Pt prefers 250 ml instead of 500 ml. Hold if Hct < 42%. Ordered Social History Date Name Value 06/02/2021 Sex Male Gender Identity Identifies as jonh epps
--- OUTSIDE RECORDS SUMMARY | 2025-01-03 18:08 | XMS_ITS ---
Author Name Interface, I7Bzepfss lity Address [address] [place] [address] Organization [facility] Address [facility]5 [place] [address] Support Name Relationship Address Phone Linda Suarez [...]
--- OUTSIDE RECORDS SUMMARY | 2025-01-03 18:08 | XMS_ITS ---
Author Name Interface, D7Ghyfckp lity Address [address] [place] [address] Organization [facility] Address [facility]5 [place] [address] Support Name Relationship Address Phone Linda Suarez [...] WBC 10 4.5 10.5 6.7 FINAL Dustin [facility] 08/08 RBC 10 4.7 6.1 5.22 FINAL Dustin [facility] 08/08 HGB g/dL 14.0 17.0 13.4 Low FINAL [facility] [place] 08/[facility] HCT % 42.0 51.0 42.2 FINAL [facility] [place] 08/08 MCV fL 80.0 95.0 80.8 FINAL Dustin Russell [place] 08/08 MCH pg 26.0 32.0 25.7 Low FINAL Dustin [facility] 08/08 MCHC g/dL 33.0 37.0 31.8 Low FINAL [facility] [place] 08/08 RDW-S D fL 35.1 43.9 44.3 High FINAL Dust[facility] [place] 08/08 RDW-C V, % % 11.6 14.4 15.0 High FINAL [facility] [place] 08/08 PLT 10 140.0 400.0 453 High FINAL Dustin [facility] 08/08 MPV fL 7.4 10.4 9.0 [...] Note Print Location: Unknown Date/Time Printed: 01/03/2025 15:08 ([facility]) Patient: Dustin Rogers Sex: Male : 1950 [...] Code(s): BLOOD COUNT AUTOMATED DIFFERENTIAL WBC COUNT (65087) Entered By Bryan Zhao; Incident to Dustin [...] Ambulatory, Selected Billing Code(s): PHLEBOTOMY THERAPEUTIC SEPARATE PROCEDURE(30843) Entered By Bryan Zhao; Incident to Dustin Russell MD
--- OUTSIDE RECORDS SUMMARY | 2025-01-03 18:08 | XMS_ITS ---
Author Name Interface, [id number] lity Address [address] [place] [address] Organization [facility] Address [facility]5 [place] [address] Support Name Relationship Address Phone Linda Suarez [...]
--- OUTSIDE RECORDS SUMMARY | 2025-01-03 18:09 | XMS_ITS | CCD ---
Author Name Interface, W4Vubwefk lity Address [address] [place] [address] Organization [facility] Address [facility]5 [place] [address] Care Team Providers Care Phlebotomist Associate Name Role Phone Dustin Russell MD Unavailable [...] as he goes back and forth to [place]. Ordered 04/15/2024 Physician Order Phlebotomy (procedure) Wh en returns from [facility] in 2024: Plan phlbs as freq as Q4 weeks/Monthly. Until goes back to [place] (pt spends 8 mo in [place] and 4 moo here)Pt prefers 250 ml instead of 500 ml. Hold if Hct < 42%. Ordered Social History Date Name Value 06/02/2021 Sex Male Gender Identity Identifies as jonh epps
--- OUTSIDE RECORDS SUMMARY | 2025-01-03 18:09 | XMS_ITS ---
Author Name Interface, [id number] lity Address [address] [place] [address] Organization [facility] Address [facility] [place] [address] Support Name Relationship Address Phone Linda Suarez [...] WBC 10 4.5 10.5 6.7 FINAL Dustin [facility] 08/08 RBC 10 4.7 6.1 5.22 FINAL Dustin [facility] 08/08 HGB g/dL 14.0 17.0 13.4 Low FINAL [facility] [place] [facility] HCT % 42.0 51.0 42.2 FINAL [facility] [place] 08/08 MCV fL 80.0 95.0 80.8 FINAL Dustin Russell [place] 08/08 MCH pg 26.0 32.0 25.7 Low FINAL Dustin [facility] 08/08 MCHC g/dL 33.0 37.0 31.8 Low FINAL Dust[facility] [place] 08/08 RDW-S D fL 35.1 43.9 44.3 High FINAL Dust[facility] [place] 08/08 RDW-C V, % % 11.6 14.4 15.0 High FINAL Dust[facility] [place] 08/08 PLT 10 140.0 400.0 453 High FINAL Dustin [facility] 08/08 MPV fL 7.4 10.4 [...] Print Location: Unknown Date/Time Printed: 01/03/2025 15:08 ([facility]) Patient: Dustin Rogers Sex: Male [...] Code(s): BLOOD COUNT AUTOMATED DIFFERENTIAL WBC COUNT (28506) Entered By Bryan Zhao; Incident to Dustin [...] Ambulatory, Selected Billing Code(s): PHLEBOTOMY THERAPEUTIC SEPARATE PROCEDURE(46118) Entered By Bryan Zhao; Incident to Dustin Russell MD
--- OUTSIDE RECORDS SUMMARY | 2025-01-03 18:09 | XMS_ITS ---
Author Name Interface, [id number] lity Address [address] [place] [address] Organization [facility] Address [facility] [place] [address] Support Name Relationship Address Phone Linda Suarez [...]
--- OUTSIDE RECORDS SUMMARY | 2025-01-03 18:09 | XMS_ITS | CCD ---
Author Name Interface, [id number] lity Address [address] [place] [address] Organization [facility] Address [facility] [place] [address] Care Team Providers Care Recovery Operator Name Role Phone Dustin Russell MD [...] as he goes back and forth to [place]. Ordered 04/15/2024 Physician Order Phlebotomy (procedure) Wh en returns from [facility] in 2024: Plan phlbs as freq as Q4 weeks/Monthly. Until goes back to [place] (pt spends 8 mo in [place] and 4 moo here)Pt prefers 250 ml instead of 500 ml. Hold if Hct < 42%. Ordered Social History Date Name Value 06/02/2021 Sex Male Gender Identity Identifies as jonh epps
--- OUTSIDE RECORDS SUMMARY | 2025-01-03 18:09 | XMS_ITS ---
Author Name Interface, [id number] lity Address [address] [place] [address] Organization [facility] Address [facility] [place] [address] Support Name Relationship Address Phone Linda Suarez [...]
--- OUTSIDE RECORDS SUMMARY | 2025-01-03 18:10 | XMS_ITS ---
Author Name Interface, [id number] lity Address [address] [place] [address] Organization [facility] Address [facility]5 [place] [address] Support Name Relationship Address Phone Linda Suarez [...]
--- OUTSIDE RECORDS SUMMARY | 2025-01-03 18:10 | XMS_ITS ---
Author Name Interface, [id number] lity Address [address] [place] [address] Organization [facility] Address [facility]5 [place] [address] Support Name Relationship Address Phone Linda Suarez [...] WBC 10 4.5 10.5 6.7 FINAL Dustin [facility] 08/08 RBC 10 4.7 6.1 5.22 FINAL Dustin [facility] 08/08 HGB g/dL 14.0 17.0 13.4 Low FINAL [facility] [place] 08/08 HCT % 42.0 51.0 42.2 FINAL [facility] [place] 08/08 MCV fL 80.0 95.0 80.8 FINAL Dustin Russell [place] 08/08 MCH pg 26.0 32.0 25.7 Low FINAL Dustin [facility] 08/08 MCHC g/dL 33.0 37.0 31.8 Low FINAL [facility] [place] 08/08 RDW-S D fL 35.1 43.9 44.3 High FINAL [facility] [place] 08/08 RDW-C V, % % 11.6 14.4 15.0 High FINAL [facility] [place] 08/08 PLT 10 140.0 400.0 453 High FINAL Dustin [facility] 08/08 MPV fL 7.4 10.4 9.0 [...] Note Print Location: Unknown Date/Time Printed: 01/03/2025 15:09 ([facility]) Patient: Dustin Rogers Sex: Male [...] Code(s): BLOOD COUNT AUTOMATED DIFFERENTIAL WBC COUNT (36622) Entered By Bryan Zhao; Incident to Dustin [...] Ambulatory, Selected Billing Code(s): PHLEBOTOMY THERAPEUTIC SEPARATE PROCEDURE(02034) Entered By Bryan Zhao; Incident to Dustin Russell MD
--- OUTSIDE RECORDS SUMMARY | 2025-01-03 18:10 | XMS_ITS | CCD ---
Author Name Interface, [id number] lity Address [address] [place] [address] Organization [facility] Address [facility]5 [place] [address] Care Team Providers Care Campaign Specialist Name Role Phone Dustin Russell MD Unavailable [...] as he goes back and forth to [place]. Ordered 04/15/2024 Physician Order Phlebotomy (procedure) Wh en returns from [place] in 2024: Plan phlbs as freq as Q4 weeks/Monthly. Until goes back to [place] (pt spends 8 mo in [place] and 4 moo here)Pt prefers 250 ml instead of 500 ml. Hold if Hct < 42%. Ordered Social History Date Name Value 06/02/2021 Sex Male Gender Identity Identifies as jonh epps
== END 2025-01-03 11:52 | disposition home or self-care (01) ==
LOC: HO.BBR 11:51
PROVIDERS: PCP Family Medicine; Visit Provider Internal Medicine Hematology
DX: D45 Polycythemia vera (principal)
CPT/HCPCS: 85018; 99195

== ENCOUNTER 2025-01-31 13:58 | Outpatient (REF) | payer MEDICARE, OTHER, SELFPAY ==
--- OUTSIDE RECORDS SUMMARY | 2025-01-31 19:23 | XMS_ITS | Data Portability ---
Author Organization [place] - [facility], [facility] Address [address] [address] Care Team Providers Care Word Processor Operator Name Role Phone SARMAD ANABEL Primary Care Provider [phone] Assessment Encounter Date Assessment Date Assessment LastModified [...] Recorded Time Impacted cerumen in left ear [id number] 42703 Active 2019 Impacted cerumen, left ear; Note: Date Diagnosed : 03/26/2019 1:38 PM (H61.22) Not Available [facility] 4 02:56:46 Thyroidit is 08013196 Active 2019 Thyroidit is, unspecifi ed; Note: Date Diagnosed : 03/26/2019 1:37 PM (E06.9) Not Available [facility] 4 02:56:47 Itching of skin 912409875 Active 2019 Other pruritus; Note: Date Diagnosed : 09/23/2019 4:59 PM (L29.8) Not Available [facility] 4 02:56:45 Tinnitus of left ear 77065404645 06 Active 2019 Tinnitus, left ear; Note: Date Diagnosed : 09/23/2019 4:18 PM (H93.12) Not Available [facility] 4 02:56:44 Bilateral tinnitus 93199464500 02 Active 2020 Tinnitus, bilateral ; Note: Date Diagnosed : 06/24/2020 4:16 PM (H93.13) Not Available [facility] 4 02:56:47 Abrasion of skin of left ear 26710079578 024219 Active 2020 Abrasion of left ear, initial encounter ; Note: Date Diagnosed : 06/29/2020 4:02 PM (S00.412A ) Not Available [facility] 4 02:56:44 Benign paroxysma l positiona l vertigo 628806915 Active 2020 Benign paroxysma l vertigo, right ear; Note: Date Diagnosed : 06/29/2020 4:03 PM (H81.11) Not Available [facility] 4 02:56:45 Sensorine ural hearing loss 47953208 Active 2022 Sensorine ural hearing loss, unilatera l, left ear, with unrestric tho hearing on the contralat eral side; Note: Date Diagnosed : 03/07/2022 11:45 AM (H90.42) Not Available [facility] 4 02:56:46 Sensorine ural hearing loss of bilateral ears 244008688 Active 2024 NEHA MCDANIEL MD [address] [place] [address],[place] [address], [place], [address] , [place] - [facility] 5 11:48:51 Polycythe noé vera (clinical ) 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 Procedures Surgical History Date Name Laterality Status Provider Name and Address Organization Details Recorded Time 03/01/2024 Air & Speech Audio with Tymps - 14760, 39071 & 28174 completed DENNIS MOLINA, AUD [address] [facility], [place], [address], [facility] - [facility] 03/01/2024 11:13:43 Imaging Results None recorded. Procedure Notes None recorded. Medical Equipment None Reported. Medications Name Sig Start Date Stop Date Status Note LastModified by Organization Details LastModified Time hydroxyur ea 500 mg capsule TAKE 1 CAPSULE BY MOUTH EVERY OTHER DAY active Not Available Not Available No t Available prednison e 10 mg tablet by mouth 03/06 completed Medicati on ID: [id number] Britta booker By Name: Ja Gaines nd [...] 24 hr 03/06 completed Medicati on ID: [id number] B rand Name: metoprol ol succinat e Send Method: E-Prescr ibed Sub s Allowed: subs OK Medic ationGen ericName : metoprol ol succinat e Not Available Not Available Not Available amlodipin e 5 mg tablet TAKE 1 TABLET BY MOUTH EVERY DAY active Not Available Not Available No t Available aspirin 81 mg tablet,de layed release active Medicati on ID: [id number] B rand Name: aspirin Send Method: E-Prescr ibed Sub s Allowed: subs OK Medic ationGen ericName : aspirin Not Available Not Available Not Available ofloxacin 0.3 % ear drops Instill 4 drop twice a day 2020 active Medicati on ID: [id number] D uration Value: 10 Prescri bed By [...] mg tablet 03/06 completed Medicati on ID: [id number] B rand Name: losartan Send Method: E-Prescr [...] to skin 2019 active Medicati on ID: [id number] D uration Value: 7 Prescri bed By Name: Ja Gaines nd Name: fluocino loncosme Sen d Method: E-Prescr ibed Sub s Allowed: subs OK Speci al Instruct ion: 3 drops BID for 7 days Med icationG enericNa me: fluocino lone Not Available Not Available Not Available Pepcid 20 mg tablet Take 1 tablet by mouth twice a day 03/06 completed Medicati on ID: [id number] B rand Name: Pepcid S end Method: [...] ICD10 Code Diagnosis IMO Codes Diagnosis Note 95062 NEHA MCDANIEL MD [facility] [address] [address] 03/01/2024 10:57:39 03/01/2024 11:51:31 Sensorineural hearing loss of bilateral ears 773285669 H90.3 Bilateral tinnitus 46182 14363 102 H93.13 Polycythem ia vera (clinical) 196460164 D45 22459 LYNDA BARGER [facility] [address] [address] 03/01/2024 11:13:12 03/04/2024 07:40:30 Bilateral tinnitus 6885842462 102 H93.13 Right Ear:Normal hearing through 6K Hz sloping to a mild SNHL with excellent speech discrimina tion.Type A tympanogra m.Left Ear:Normal hearing through 6K Hz sloping to a mild SNHL with excellent speech discrimina tion.Type A tympanogra m. Sensorineu ral hearing loss 70907124 H90.42 Health Concerns Section Related Observation LastModified by Organization Detai ls LastModified Time None Recorded Concern Status LastModified by Organization Details LastModified Time None Recorded Advance Directives Directive None Recorded Payers Insurance Date Sequence Insurance Name Policy Number Policy Cote Covered Member ID Cote Member ID Guarantor Name 03/01/2024 2 [facility] [id number] Dustin Saleema [id number] Dustin Rogers 02/27/2024 1 MEDICARE [place]: [facility] Dustin Saleema [id number] Dustin Rogers Notes Date Note Type Note Provider Name and Address Organization Details Recorded Time 03/01/2024 text/html Overall feels things are stableDealing with PCV--fatigueGetting phlebotomy every month or so NEHA ZELAYA MD [address] [place] [address], [place], [address], [place] - [facility] 03/01/2024 11:49:47
--- OUTSIDE RECORDS SUMMARY | 2025-01-31 19:23 | XMS_ITS | Clinical Summary ---
Author Organization [facility] Address [address] [employer] [address] [place] [address] Phone Care Team Providers Care Long Line Teamster Name Role Phone Byron Aguilar MD Primary [...] 10 mg by mouth daily. Active omega 9-hlm-izv-fish oil 1,000 mg (120 mg-180 mg) Cap [...] (02/26/2019 11:10 AM EST) HDL 33 mg/dL [facility] Comment: Interpretation <40 mg/dL: Low HDL cholesterol (major risk factor for CHD) Greater than or equal to 60 mg/dL: High HDL cholesterol ( negative risk factor for CHD) HDL - cholesterol is affected by a number of factors, e.g. smoking, excerise, hormones, sex and age. CHOLESTEROL 222 0 - 240 mg/dL [facility] TRIGLYCERIDES 355(H) 30 - 160 mg/dL [facility] LDL 118 50 - 129 mg/dL [facility] Comment: LDL levels in terms of risk for coronary heart disease: <100 mg/dL: Optimal 100-129 mg/dL: Near or above optimal 130-159 mg/dL: Borderline high 160-189 mg/dL: High >190 mg/dL: Very High CARDIAC RISK RATIO 6.7(H) 3.4 - 5.0 C [facility] Blood 02/26/2019 11:1 0 AM EST 02/26/2019 11:12 AM EST us Byron Aguilar MD LAB BLOOD BKR ORDERA BLES Final Result [facility] [address] [place] [address] from Last 3 Months or Most Recently Relevant to Health Maintenance Insurance MEDICARE PART A & B [facility] MEDICARE SUPPLEMENT [facility] Address: [address] [address] MEDICARE PART A & B [employer] MEDICARE SUPPLEMENT MEDICARE PART A & B [employer] MEDICARE SUPPLEMENT MEDICARE PART A & B Member Subscriber Plan / Payer (Ef fective 2015-Present) Name:Dustin Rogers Member ID:[id number] Relation to Subscriber:Self Name:Dustin Rogers Subscriber ID:[id number] Payer ID:[id number] Group ID:Not on file Type:Medicare Address: [employer] [facility].[address] [address] [facility] MEDICARE SUPPLEMENT MEDICARE PART A & B [facility] MEDICARE SUPPLEMENT MEDICARE PART A & B [facility] MEDICARE SUPPLEMENT MEDICARE PART A & B Member Subscriber Plan / Payer ( fective 2015-Present) Name:Dustin Rogers Member ID:[id number] Relation to Subscriber:Self Name:Dustin Rogers Subscriber ID:[id number] Payer ID:[id number] Group ID:Not on file Type:Medicare Address: [employer] [address] [place] [address] MEDICARE PART A & B MEDICARE SUPPLEMENT MEDICARE PART A & B [facility] MEDICARE SUPPLEMENT Care Teams Long Line Teamster Relationship Specialty Start Date End Date Byron Aguilar MD [address] [place] [address] PCP - General Internal Medicine 10/03/13 Additional Source Comments The information contained in this document represents components of the legal health record. It is not the complete legal health record.[facility]
--- OUTSIDE RECORDS SUMMARY | 2025-01-31 19:23 | XMS_ITS | Clinical Summary ---
Author Organization [facility] [address] [facility] Address [address] [place] [address] Phone Care Team Providers Care Process Mold Technician Name Role Phone Bakari Crawford MD Primary Care Provider [phone] Allergies No known active allergies Social History [...] Recently Relevant to Health Maintenance Insurance MEDICARE [facility] [address] [address] Care Teams Process Mold Technician Relationship Specialty Start Date End Date Bakari Crawford MD [facility] [address] [place] [address] PCP - General Family Medicine 03/21/24
--- OUTSIDE RECORDS SUMMARY | 2025-01-31 19:23 | XMS_ITS ---
Author Name Interface, [id number] lity Address [address] [place] [address] Organization [facility] Address [facility]5 [place] [address] Support Name Relationship Address Phone Linda Suarez [...] WBC 10 4.5 10.5 6.7 FINAL Dustin [facility] 08/08 RBC 10 4.7 6.1 5.22 FINAL Dustin [facility] 08/08 HGB g/dL 14.0 17.0 13.4 Low FINAL [facility] [place] 08/08 HCT % 42.0 51.0 42.2 FINAL [facility] [place] 08/08 MCV fL 80.0 95.0 80.8 FINAL Dustin Russell [place] 08/08 MCH pg 26.0 32.0 25.7 Low FINAL Dustin [facility] 08/08 MCHC g/dL 33.0 37.0 31.8 Low FINAL [facility] [place] 08/08 RDW-S D fL 35.1 43.9 44.3 High FINAL [facility] [place] 08/08 RDW-C V, % % 11.6 14.4 15.0 High FINAL [facility] [place] 08/08 PLT 10 140.0 400.0 453 High FINAL Dustin [facility] 08/08 MPV fL 7.4 10.4 9.0 [...] Nurse Note Print Location: Unknown Date/Time Printed: 01/31/2025 16:22 ([facility]) Patient: Dustin Rogers Sex: Male : [...] Code(s): BLOOD COUNT AUTOMATED DIFFERENTIAL WBC COUNT (52348) Entered By Bryan Zhao; Incident to Dustin [...] Ambulatory, Selected Billing Code(s): PHLEBOTOMY THERAPEUTIC SEPARATE PROCEDURE(62049) Entered By Bryan Zhao; Incident to Dustin Russell MD
--- OUTSIDE RECORDS SUMMARY | 2025-01-31 19:23 | XMS_ITS ---
Author Name Interface, [id number] lity Address [address] [place] [address] Organization [facility] Address [facility]5 [place] [address] Support Name Relationship Address Phone Linda Suarez [...]
--- OUTSIDE RECORDS SUMMARY | 2025-01-31 19:23 | XMS_ITS | CCD ---
Author Name Interface, [id number] lity Address [address] [place] [address] Organization [facility] Address [facility] [place] [address] Care Team Providers Care Poultry Killer Name Role Phone Dustin Russell MD Unavailable [...] Active Procedures Date Category Name Instructions Status 02/15/2024 Physician Order Therapeutic phle botomy (procedure) [...] as he goes back and forth to [place]. Ordered 04/15/2024 Physician Order Phlebotomy (procedure) Wh en returns from [facility] in 2024: Plan phlbs as freq as Q4 weeks/Monthly. Until goes back to [place] (pt spends 8 mo in [place] and 4 moo here)Pt prefers 250 ml instead of 500 ml. Hold if Hct < 42%. Ordered Social History Date Name Value 06/02/2021 Sex Male Gender Identity Identifies as jonh epps
--- OUTSIDE RECORDS SUMMARY | 2025-01-31 19:23 | XMS_ITS | Encounter Summary ---
Author Organization [facility] Address [address] [place] [address] Phone Care Team Providers Care Auto Tune Up Mechanic Name Role Phone Byron Aguilar MD Primary Care Provid er Encounter Details Date Type Department Care Team (Latest Contact Info) Description 02/26/2019 Transcribe Orders [facility] Phleb [address] [place] [address] Byron Aguilar MD [address] [place] [address] Hypertension, unspecified type (Primary Dx); Hyperlipidemia, unspecified [...] Special Requests None 02/26/2019 11:11 AM EST [facility] GRAM STAIN NO ORGANISMS SEEN 02/27/2019 9:58 AM EST [facility] Urine Culture <10,000 colony forming units per mL 02/27/2019 9:56 AM EST [facility] Urine (Urine) 02/26/2019 11: 10 AM EST 02/26/2019 11:12 AM EST Comment:CLEAN CATCH us Byron Aguilar MD LAB MICROBIOLOGY CUL TURE ORDERABLES Final Result Performing Organization Address City/[facility]/ZIP Co de Phone Number [address] [address] * (ABNORMAL) URINALYSIS WITH SEDIMENT (02/26/2019 11:10 AM EST) WBC NONE SEEN NONE SEEN /hpf [facility] RBC 0-2(A) NONE SEEN /hpf [facility] URINE EPITHELIAL 0-4(A) NONE SEEN [facility] MUCUS NONE SEEN NONE SEEN /hpf [facility] BACTERIA Trace(A) NONE SEEN /hpf [facility] COLOR Yellow Yellow [facility] CLARITY Clear [facility] GLUCOSE Negative Negative [facility] BILI Negative Negative [facility] KETONES Negative Negative [facility] SPECIFIC GRAVITY 1.010 1.005 - 1.030 [facility] BLOOD Negative Negative [facility] PH 7.0 5.0 - 8.0 [facility] Protein-UA Negative Negative [facility] NITRITE Negative Negative [facility] Leukocyte esterase, ur Negative Negative [facility] Urine (Urine) 02/26/2019 11: 10 AM EST 02/26/2019 11:12 AM EST us Byron Aguilar MD LAB URINE ORDERABLES Final Result Performing Organization Address City/[facility]/ZIP Co de Phone Number [address] [address] * Hemoglobin A1c (02/26/2019 11:10 AM EST) HEMOGLOBIN A1C 5.8 4.3 - 5.8 % [facility] Blood 02/26/2019 11:1 0 AM EST 02/26/2019 11:12 AM EST us Byron Aguilar MD LAB BLOOD BKR ORDERA BLES Final Result Performing Organization Address City/[facility] Co de Phone Number [address] [address] * (ABNORMAL) Basic metabolic panel (02/26/2019 11:10 AM EST) SODIUM 139 133 - 146 mmol/L [facility] CHLORIDE 100 96 - 108 mmol/L [facility] POTASSIUM 4.4 3.3 - 5.1 mmol/L [facility] CO2 26 21 - 35 mmol/L [facility] BUN 19 6 - 19 mg/dL [facility] CREATININE 0.90 0.5 - 1.5 mg/dL [facility] GLUCOSE 119(H) 70 - 99 mg/dL [facility] CALCIUM 9.3 8.4 - 10.3 mg/dL [facility] EGFR 87 >59 mL/min/1.7 3m2 [facility] Comment:If patient is black, multiply result by 1.159. Estimated glomerular filtration rate calculated using the CKD-EPI equation. ANION GAP 17 10 - 20 mmol/L [facility] Blood 02/26/2019 11:1 0 AM EST 02/26/2019 11:12 AM EST us Byron Aguilar MD LAB BLOOD BKR ORDERA BLES Final Result Performing Organization Address City/[facility] Co de Phone Number [address] [address] * (ABNORMAL) Lipid panel (02/26/2019 11:10 AM EST) HDL 33 mg/dL [facility] Comment: Interpretation <40 mg/dL: Low HDL cholesterol (major risk factor for CHD) Greater than or equal to 60 mg/dL: High HDL cholesterol ( negative risk factor for CHD) HDL - cholesterol is affected by a number of factors, e.g. smoking, excerise, hormones, sex and age. CHOLESTEROL 222 0 - 240 mg/dL [facility] TRIGLYCERIDES 355(H) 30 - 160 mg/dL [facility] LDL 118 50 - 129 mg/dL [facility] Comment: LDL levels in terms of risk for coronary heart disease: <100 mg/dL: Optimal 100-129 mg/dL: Near or above optimal 130-159 mg/dL: Borderline high 160-189 mg/dL: High >190 mg/dL: Very High CARDIAC RISK RATIO 6.7(H) 3.4 - 5.0 C [facility] Blood 02/26/2019 11:1 0 AM EST 02/26/2019 11:12 AM EST us Byron Aguilar MD LAB BLOOD BKR ORDERA BLES Final Result [facility] [address] [place] [address] documented in this encounter Visit Diagnoses Diagnosis Hypertension, unspecified type- Primary Hyperlipidemia, unspecified hyperlipidemia type Reflux esophagitis documented in this encounter Care Teams Auto Tune Up Mechanic Relationship Specialty Start Date End Date Byron Aguilar MD [address] [place] [address] PCP - General Internal Medicine 10/03/13 documented as of this encounter Additional Source Comments The information contained in this document represents components of the legal health record. It is not the complete legal health record.[facility]
== END 2025-01-31 13:59 | disposition home or self-care (01) ==
LOC: HO.BBR 13:58
PROVIDERS: PCP Family Medicine; Visit Provider Internal Medicine Hematology
DX: D45 Polycythemia vera (principal)
CPT/HCPCS: 85018; 99195